=== PATIENT | female | born 1995 | race African-American/Black ===

== ENCOUNTER 2016-06-03 11:16 | Emergency (ER) | payer MEDICAID ==
--- NOTE | 2016-06-03 11:21 | ER Document Report ---
ED Medical Screen (RME) - General Stated Complaint: VAGINAL BLEEDING Mode of Arrival: Ambulatory Information source: Patient Notes: pt presents c/o vag bleeding today, pt reports that she is currently 5 wks preg. Pt and has not had US to confirm . TRAVEL OUTSIDE OF THE [place] IN LAST 30 DAYS: No - Related Data Allergies/Adverse Reactions: No Known Allergies Allergy (Verified 07/02/13 09:51) Past Medical History Pulmonary Medical History: Reports: Hx Asthma Skin Medical History: Reports Hx Cellulitis - Immunizations Immunizations up to date: Yes Hx Diphtheria, Pertussis, Tetanus Vaccination: Yes Physical Exam - General General appearance: Appears well, Alert In distress: None
--- NOTE | 2016-06-03 12:04 | ER Document Report ---
ED GI/ - General Chief Complaint: Vag Bleeding, +preg <12wks Stated Complaint: VAGINAL BLEEDING Time seen by provider: 12:00 Mode of Arrival: Ambulatory Information source: Patient Notes: 20-year-old female presents to ED for complain of vaginal bleeding starting this morning. She states she is currently 5 weeks she's had a urine test but no blood work no ultrasound. She is 1 para 0. She states that she has not soaked more than 1 pad. TRAVEL OUTSIDE OF THE [place] IN LAST 30 DAYS: No - HPI Patient complains to provider of: Abdominal pain - Right upper quadrant abdominal pain, , Vaginal bleeding. No: Vomiting Onset: This morning Timing/Duration: Gradual Quality of pain: Sharp Severity at maximum: Mild Severity in ED: Mild Pain Level: 2 Location: RUQ Vaginal bleeding (Compared to normal period): Similar Associated symptoms: denies: Nausea, Vomiting Exacerbated by: Denies Relieved by: Denies Similar symptoms previously: No Recently seen / treated by doctor: No - Related Data Allergies/Adverse Reactions: No Known Allergies Allergy (Verified 06/03/16 11:22) Past Medical History - General Information source: Patient - Social History Smoking Status: Former Smoker Chew tobacco use (# tins/day): No Frequency of alcohol use: None Drug Abuse: None Occupation: none Lives with: Parents Family History: Arthritis, CAD, CVA, DM, Hypertension Patient has suicidal ideation: No Patient has homicidal ideation: No - Past Medical History Cardiac Medical History: Reports: None Pulmonary Medical History: Reports: Hx Asthma EENT Medical History: Reports: None Neurological Medical History: Reports: None Endocrine Medical History: Reports: None Renal/ Medical History: Reports: None Malignancy Medical History: Reports: None GI Medical History: Reports: None Musculoskeltal Medical History: Reports None Skin Medical History: Reports Hx Cellulitis Psychiatric Medical History: Reports: None Traumatic Medical History: Reports: None Infectious Medical History: Reports: None Surgical Hx: Negative Past Surgical History: Reports: None - Immunizations Immunizations up to date: Yes Hx Diphtheria, Pertussis, Tetanus Vaccination: Yes Review of Systems - Review of Systems Constitutional: No symptoms reported EENT: No symptoms reported Cardiovascular: No symptoms reported Respiratory: No symptoms reported Gastrointestinal: Abdominal pain. denies: Diarrhea, Nausea, Vomiting Genitourinary: No symptoms reported Female Genitourinary: , Vaginal bleeding Musculoskeletal: No symptoms reported Skin: No symptoms reported Hematologic/Lymphatic: No symptoms reported Neurological/Psychological: No symptoms reported -: Yes All other systems reviewed and negative Physical Exam - Vital signs Vitals: Temp Pulse Resp BP Pulse Ox 97.7 F 67 16 110/51 L 99 06/03/16 11:21 06/03/16 11:21 06/03/16 11:21 06/03/16 11:21 06/03/16 11:21 Interpretation: Normal - General General appearance: Appears well, Alert - HEENT Head: Normocephalic, Atraumatic Eyes: Normal Pupils: PERRL - Respiratory Respiratory status: No respiratory distress Chest status: Nontender Breath sounds: Normal Chest palpation: Normal - Cardiovascular Rhythm: Regular Heart sounds: Normal auscultation Murmur: No - Abdominal Inspection: Normal Distension: No distension Bowel sounds: Normal Tenderness: Almaguer's sign. No: Guarding, Rebound Organomegaly: No organomegaly - Back Back: Normal, Nontender - Extremities General upper extremity: Normal inspection, Nontender, Normal color, Normal ROM , Normal temperature General lower extremity: Normal inspection, Nontender, Normal color, Normal ROM , Normal temperature, Normal weight bearing. No: Estefania's sign - Neurological Neuro grossly intact: Yes Cognition: Normal Orientation: AAOx4 Kaiser Coma Scale Eye Opening: Spontaneous [place] Coma Scale Verbal: Oriented Kaiser Coma Scale Motor: Obeys Commands Kaiser Coma Scale Total: 15 Speech: Normal Motor strength normal: LUE, RUE, LLE, RLE Sensory: Normal - Psychological Associated symptoms: Normal affect, Normal mood - Skin Skin Temperature: Warm Skin Moisture: Dry Skin Color: Normal Course - Re-evaluation Re-evalutation: 06/03/16 13:55 Discussed labs and ultrasound with patient and written reports given to patient. Ultrasound shows a very early with a positive yolk sac gestational sac but no pole. We will recheck hCG in 48 hours. We'll discharge home to follow-up with STACK SUPERVISOR - Vital Signs Vital signs: Temp Pulse Resp BP Pulse Ox 98.2 F 80 14 116/64 100 06/03/16 14:06 06/03/16 14:06 06/03/16 14:06 06/03/16 14:06 06/03/16 14:06 - Laboratory Result Diagrams: 06/03/16 12:23 06/03/16 12:23 Laboratory results interpreted by me: 06/03/16 06/03/16 12:18 12:23 BUN 6 L AST 12 L Beta HCG, Quant 9963.70 H Urine Blood LARGE H Ur Leukocyte Esterase TRACE H - Diagnostic Test Radiology reviewed: Image reviewed, Reports reviewed Discharge - Discharge Clinical Impression: Bleeding in early , Upper abdominal pain Condition: Stable Disposition: HOME, SELF-CARE Instructions: Evaluation of Upper Abdominal Pain ([facility]) Additional Instructions: : You are . care is best started as early in as possible. If you're unsure about continuing this , you should discuss this with your physician or with fpga engineer at [facility]. You should take only medications approved by your physician. Acetaminophen can safely be taken for minor pains. As a rule, medication for chronic conditions such as asthma or seizures can safely be continued. You should discuss with the physician every medicine you take. Any regular exercise program can be continued. Talk to your physician, however, before engaging in competitive or demanding sports. Alcohol, smoking, and "street drugs" are dangerous to your baby. Cocaine is especially dangerous. Don't use any illicit drugs! BLEEDING DURING EARLY : You have been evaluated for passing blood while . While we take this symptom very seriously, most women with your degree of bleeding will go on to have a perfectly normal baby. At this time, there is no indication that a miscarriage will occur. (A miscarriage occurs when the fetus is abnormal. There is no medicine or treatment to prevent it.) A more serious cause of bleeding is tubal (or ectopic) . An ultrasound usually can show whether the is in the uterus or in the tube. Sometimes in early , no fetus is seen. In this case, careful follow-up, including repeat blood tests and repeat ultrasound, is necessary. Do not douche or have sex for at least a week, or until OK'd by the doctor. Don't use tampons. Call the doctor or return for re-examination if there is an increase in bleeding or cramping, extreme weakness, fainting, new abdominal pain, fever, or passage of tissue. REPEAT BLOOD TEST: At this time, it is uncertain if you have a viable . During the first three months of , the hormone produced from the placenta will steadily rise, usually doubling in value every 2 - 3 days. In order to determine if your is viable and likely be succesful, a repeat of this blood test for the hormone is recommended in 2 - 3 days. An order for this test to be done as an outpatient is being provided. After you have this repeat test done, call your doctor or call us for the results. If the value of the test is increasing as would be expected in a normal , then your is likely to be ok. However, if the value of the test is declining, it will suggest something has happened with your and it will not likely be a successful . FOLLOW-UP CARE: If you have been referred to a physician for follow-up care, call the physician s office for an appointment as you were instructed or within the next two days. If you experience worsening or a significant change in your symptoms (very heavy bleeding with large clots of blood, passage of tissue, more severe abdominal / pelvic pain or cramping, feeling faint or severe weakness, fever, etc.), notify the physician immediately or return to the Emergency Department at any time for re-evaluation. OBSTETRIC-GYNECOLOGIC (OB-LOG [facility]) PHYSICIANS IN [place]: [facility] [address], [place] [phone] [facility] [address] [place] [address] [phone] For active duty and dependents diagnosed with a threatened or miscarriage, you should follow up in the following manner: Standard patients who have a local civilian provider should follow up with that provider. Patients of the Family Practice Clinic should call your Team Nurse at 8: 00 am the following morning for further instructions. If you are neither a Standard patient nor a patient of the Family Practice Clinic, you should follow up at the [facility] ([facility]) . Patients already enrolled in the [facility], Prime patients not assigned to the Family Practice Clinic, and Active Duty patients not assigned to Family Practice Clinic should report to the [facility] at 8:00 am the next morning that the [facility] is open and then you will be seen in the OB Clinic at 11:00 am. Forms: Follow-Up Laboratory Testing
[2016-06-03 12:40] LABS: APPEARANCE,URINE CLEAR; BILIRUBIN,URINE NEGATIVE (NEGATIVE); GLUCOSE, URINE NEGATIVE (NEGATIVE); KETONES,URINE NEGATIVE (NEGATIVE); LEUKOCYTE ESTERASE,URINE TRACE (NEGATIVE); NITRITE,URINE NEGATIVE (NEGATIVE); PROTEIN,URINE NEGATIVE (NEGATIVE); URINE SPECIFIC GRAVITY 1.011; UROBILINOGEN,URINE NEGATIVE mg/dL (<2.0)
[2016-06-03 12:43] LABS: ABSOLUTE EOSINOPHILS # (AUTO) 0.3 10^3/uL (0.0-0.6); ABSOLUTE LYMPHOCYTES (AUTO) 3.1 10^3/uL (0.5-4.7); ABSOLUTE MONOCYTES (AUTO) 0.5 10^3/uL (0.1-1.4); ABSOLUTE NEUT (AUTO) 3.4 10^3/uL (1.7-8.2); BASOPHILS % (AUTO) 0.4 % (0-2); EOSINOPHILS % (AUTO) 4.1 % (0-6); HEMATOCRIT 42.9 % (36.0-47.0); HEMOGLOBIN 14.8 g/dL (12.0-15.5); HGB HCT DIFFERENCE 1.5; LYMPHOCYTES % (AUTO) 42.2 % (13-45); MEAN CORPUSCULAR HEMOGLOBIN 29.6 pg (27.0-33.4); MEAN CORPUSCULAR HGB CONC 34.6 g/dL (32.0-36.0); MEAN CORPUSCULAR VOLUME 86 fl (80-97); MONOCYTES % (AUTO) 6.7 % (3-13); RED BLOOD COUNT 5.01 10^6/uL (3.72-5.28); SEGMENTED NEUTROPHILS % (AUTO) 46.6 % (42-78); WHITE BLOOD COUNT 7.2 10^3/uL (4.0-10.5)
[2016-06-03 12:56] LABS: ALANINE AMINOTRANSFERASE 23 U/L (9-52); ALBUMIN 4.3 g/dL (3.5-5.0); ALKALINE PHOSPHATASE 45 U/L (38-126); ANION GAP 12 (5-19); ASPARTATE AMINO TRANSFERASE 12 U/L (14-36); BILIRUBIN,TOTAL 0.4 mg/dL (0.2-1.3); BLOOD UREA NITROGEN 6 mg/dL (7-20); CALCIUM 9.8 mg/dL (8.4-10.2); CARBON DIOXIDE 22 mmol/L (22-30); CHLORIDE 105 mmol/L (98-107); CREATININE RESULT 0.79 mg/dL (0.52-1.25); GLUCOSE 90 mg/dL (75-110); LIPASE 50.1 U/L (23-300); SODIUM 138.6 mmol/L (137-145); TOTAL PROTEIN 6.9 g/dL (6.3-8.2)
[2016-06-03 14:06] VITALS: BP 116/64
== END 2016-06-03 14:11 | disposition home or self-care (01) ==
LOC: ER 11:16
DX: O20.9 Hemorrhage in early pregnancy, unspecified (principal); R10.10 Upper abdominal pain, unspecified; Z3A.01 Less than 8 weeks gestation of pregnancy; Z87.891 Personal history of nicotine dependence
CPT/HCPCS: 36415; 76705; 76817; 80053; 81001; 83690; 84702; 85025; 86900; 86901; 93976; 99284

== ENCOUNTER → 2016-06-05 | Outpatient (CLI) | payer MEDICAID | LOC: LAB 12:03 | PROVIDERS: ATTEND Nurse Practitioner Family | DX: O20.9 Hemorrhage in early pregnancy, unspecified (principal) | CPT/HCPCS: 36415; 84702 ==

== ENCOUNTER 2016-06-23 11:59 | Emergency (ER) | payer MEDICAID ==
--- NOTE | 2016-06-23 12:21 | ER Document Report ---
ED Medical Screen (RME) - General Stated Complaint: ABDOMINAL PAIN, BACK PAIN Time seen by provider: 12:19 Mode of Arrival: Ambulatory Information source: Patient Notes: 20-year-old female presents to ED for right pelvic pain and left flank pain for about a week now. Denies nausea or vomiting. This any vaginal discharge or bleeding at this time states she was in here 2 weeks ago for vaginal bleeding. I have greeted and performed a rapid initial assessment of this patient. A comprehensive ED assessment and evaluation of the patient, analysis of test results and completion of medical decision making process will be conducted by an additional ED providers. TRAVEL OUTSIDE OF THE [place] IN LAST 30 DAYS: No - Related Data Allergies/Adverse Reactions: No Known Allergies Allergy (Verified 06/03/16 11:22) Past Medical History Pulmonary Medical History: Reports: Hx Asthma Skin Medical History: Reports Hx Cellulitis - Immunizations Immunizations up to date: Yes Hx Diphtheria, Pertussis, Tetanus Vaccination: Yes
[2016-06-23 12:22] VITALS: BP 125/55
[2016-06-23 12:59] LABS: ABSOLUTE EOSINOPHILS # (AUTO) 0.1 10^3/uL (0.0-0.6); ABSOLUTE LYMPHOCYTES (AUTO) 2.7 10^3/uL (0.5-4.7); ABSOLUTE MONOCYTES (AUTO) 0.4 10^3/uL (0.1-1.4); ABSOLUTE NEUT (AUTO) 4.6 10^3/uL (1.7-8.2); BASOPHILS % (AUTO) 0.3 % (0-2); EOSINOPHILS % (AUTO) 1.3 % (0-6); HEMATOCRIT 41.3 % (36.0-47.0); HEMOGLOBIN 13.8 g/dL (12.0-15.5); HGB HCT DIFFERENCE 0.1; LYMPHOCYTES % (AUTO) 34.9 % (13-45); MEAN CORPUSCULAR HGB CONC 33.4 g/dL (32.0-36.0); MEAN CORPUSCULAR VOLUME 87 fl (80-97); MONOCYTES % (AUTO) 4.7 % (3-13); RED BLOOD COUNT 4.75 10^6/uL (3.72-5.28); RED CELL DISTRIBUTION WIDTH 12.7 % (11.5-14.0); SEGMENTED NEUTROPHILS % (AUTO) 58.8 % (42-78); WHITE BLOOD COUNT 7.8 10^3/uL (4.0-10.5)
[2016-06-23 13:04] LABS: APPEARANCE,URINE SLIGHTLY-CLOUDY; BILIRUBIN,URINE NEGATIVE (NEGATIVE); GLUCOSE, URINE NEGATIVE (NEGATIVE); KETONES,URINE NEGATIVE (NEGATIVE); LEUKOCYTE ESTERASE,URINE SMALL (NEGATIVE); NITRITE,URINE NEGATIVE (NEGATIVE); PROTEIN,URINE NEGATIVE (NEGATIVE); URINE SPECIFIC GRAVITY 1.018; UROBILINOGEN,URINE NEGATIVE mg/dL (<2.0)
[2016-06-23 13:12] LABS: ALANINE AMINOTRANSFERASE 15 U/L (9-52); ALKALINE PHOSPHATASE 39 U/L (38-126); ANION GAP 12 (5-19); ASPARTATE AMINO TRANSFERASE 11 U/L (14-36); BILIRUBIN,TOTAL 0.4 mg/dL (0.2-1.3); BLOOD UREA NITROGEN 6 mg/dL (7-20); CALCIUM 9.7 mg/dL (8.4-10.2); CARBON DIOXIDE 24 mmol/L (22-30); CHLORIDE 105 mmol/L (98-107); CREATININE RESULT 0.74 mg/dL (0.52-1.25); GLUCOSE 119 mg/dL (75-110); POTASSIUM 3.9 mmol/L (3.6-5.0); SODIUM 141.3 mmol/L (137-145); TOTAL PROTEIN 6.5 g/dL (6.3-8.2)
[2016-06-23 14:30] LABS: CHLAM PCR NOT DETECTED (NOT DETECT)
--- NOTE | 2016-06-23 17:37 | ER Document Report ---
ED GI/ - General Chief Complaint: Pelvic Pain Stated Complaint: ABDOMINAL PAIN, BACK PAIN Time seen by provider: 12:30 Mode of Arrival: Ambulatory Information source: Patient Notes: 20 yo female 8 week female has left flank and pelvic pain intermittantly for 1 week. No vaginal bleeding. Was seen 2 weeks ago with spotting, unsure about madi US results, remembers that she was not far enough along for anything to be seen. Upon review of the US it showed gest. sac and yolk sac. She did have doubled serum HCG 2 days after ER visit and no bleeding since. No vaginal d/c or dysuria. TRAVEL OUTSIDE OF THE [place] IN LAST 30 DAYS: No - Related Data Allergies/Adverse Reactions: No Known Allergies Allergy (Verified 06/23/16 12:20) Past Medical History - General Information source: Patient - Social History Smoking Status: Former Smoker Chew tobacco use (# tins/day): No Frequency of alcohol use: None Drug Abuse: None Lives with: Family Family History: Arthritis, CAD, CVA, DM, Hypertension Patient has suicidal ideation: No Patient has homicidal ideation: No Pulmonary Medical History: Reports: Hx Asthma Renal/ Medical History: Denies: Hx Peritoneal Dialysis Skin Medical History: Reports Hx Cellulitis Surgical Hx: Negative - Immunizations Immunizations up to date: Yes Hx Diphtheria, Pertussis, Tetanus Vaccination: Yes Review of Systems - Review of Systems Constitutional: No symptoms reported EENT: No symptoms reported Cardiovascular: No symptoms reported Respiratory: No symptoms reported Gastrointestinal: No symptoms reported Genitourinary: No symptoms reported Female Genitourinary: See HPI Musculoskeletal: No symptoms reported Skin: No symptoms reported Hematologic/Lymphatic: No symptoms reported Neurological/Psychological: No symptoms reported Physical Exam - Vital signs Vitals: Temp Pulse Resp BP Pulse Ox 98.1 F 78 18 125/55 L 98 06/23/16 12:16 06/23/16 12:16 06/23/16 12:16 06/23/16 12:16 06/23/16 12:16 Interpretation: Normal - General General appearance: Appears well, Alert In distress: None - HEENT Head: Normocephalic, Atraumatic Eyes: Normal Pupils: PERRL Neck: Supple - Respiratory Respiratory status: No respiratory distress Chest status: Nontender Breath sounds: Normal Chest palpation: Normal - Cardiovascular Rhythm: Regular Heart sounds: Normal auscultation Murmur: No - Abdominal Inspection: Normal Distension: No distension Bowel sounds: Normal Tenderness: Nontender. No: Tender Organomegaly: No organomegaly - Back Back: Normal, Nontender. No: Tender, CVA tenderness - Extremities General upper extremity: Normal inspection, Nontender, Normal color, Normal ROM , Normal temperature General lower extremity: Normal inspection, Nontender, Normal color, Normal ROM , Normal temperature, Normal weight bearing. No: Estefania's sign - Neurological Neuro grossly intact: Yes Cognition: Normal Orientation: AAOx4 Kaiser Coma Scale Eye Opening: Spontaneous [place] Coma Scale Verbal: Oriented [place] Coma Scale Motor: Obeys Commands Kaiser Coma Scale Total: 15 Speech: Normal Motor strength normal: LUE, RUE, LLE, RLE Sensory: Normal - Psychological Associated symptoms: Normal affect, Normal mood - Skin Skin Temperature: Warm Skin Moisture: Dry Skin Color: Normal Skin irregularity: negative: Rash Course - Re-evaluation Re-evalutation: 06/23/16 17:36 I have consulted with the supervisory physician per [facility] Guidelines. The ultrasound shows a viable 8 week 2 day IUP. The urine is negative. The quantitative is 141,000. Patient does not have any pain today. Or vaginal bleeding. - Vital Signs Vital signs: Temp Pulse Resp BP Pulse Ox 98.1 F 78 18 125/55 L 98 06/23/16 12:16 06/23/16 12:16 06/23/16 12:16 06/23/16 12:16 06/23/16 12:16 - Laboratory Result Diagrams: 06/23/16 12:41 06/23/16 12:41 Laboratory results interpreted by me: 06/23/16 06/23/16 06/23/16 12:41 12:41 12:41 BUN 6 L Glucose 119 H AST 11 L Serum HCG, Qual POSITIVE H Beta HCG, Quant Urine Blood SMALL H Ur Leukocyte Esterase SMALL H 06/23/16 12:41 BUN Glucose AST Serum HCG, Qual Beta HCG, Quant 047459.00 H Urine Blood Ur Leukocyte Esterase Discharge - Discharge Clinical Impression: viable IUP 8 weeks 2 days Abdominal pain Qualifiers: Abdominal location: unspecified location Qualified Code(s): R10.9 - Unspecified abdominal pain Condition: Good Disposition: HOME, SELF-CARE Instructions: ([facility]), Abdominal Pain ([facility]), Ob-Commercial Attache Doctors Additional Instructions: see obgyn doctor daily multivitamin to er any pain or bleeding Forms: Return to Work
== END 2016-06-23 17:49 | disposition home or self-care (01) ==
LOC: ER 11:59
DX: O26.91 Pregnancy related conditions, unspecified, first trimester (principal); R10.2 Pelvic and perineal pain; M54.9 Dorsalgia, unspecified; Z3A.08 8 weeks gestation of pregnancy
CPT/HCPCS: 36415; 76817; 80053; 81001; 83690; 84702; 84703; 85025; 87491; 87591; 99284

== ENCOUNTER 2016-12-21 12:47 | Outpatient (CLI) | payer MEDICAID ==
[2016-12-21 13:37] LABS: APPEARANCE,URINE SLIGHTLY-CLOUDY; BILIRUBIN,URINE NEGATIVE (NEGATIVE); CALCIUM OXALATE CRYSTALS,URINE FEW /HPF; GLUCOSE, URINE NEGATIVE (NEGATIVE); KETONES,URINE NEGATIVE (NEGATIVE); LEUKOCYTE ESTERASE,URINE NEGATIVE (NEGATIVE); NITRITE,URINE NEGATIVE (NEGATIVE); PROTEIN,URINE NEGATIVE (NEGATIVE); URINE SPECIFIC GRAVITY 1.014; UROBILINOGEN,URINE NEGATIVE mg/dL (<2.0)
[2016-12-21 13:48] LABS: URINE BARBITURATES SCREEN NEGATIVE; URINE METHADONE SCREEN NEGATIVE; URINE OPIATES LOW NEGATIVE; URINE PHENCYCLIDINE SCREEN NEGATIVE
--- NOTE | 2016-12-21 13:55 | Non Stress Test Report ---
Non Stress Test Datetime Report Generated by CPN: 12/21/2016 13:55 DEMOGRAPHIC EGA NST: 34.2 INDICATION Indication for Study: Decreased Movement MONITORING Monitor Explained: Monitor Explained; Test Explained; Patient Verbalized Understanding Time on Monitor: 12/21/2016 13:08 Time off Monitor: 12/21/2016 13:51 NST Duration: 43 NST INTERVENTIONS NST Interventions: PO Hydration; Reposition Patient Physician Notified NST: J Donnelly CNM BABY A: [id number] BABY A Movement : Present Contraction Frequency : none FHR Baseline : 125 Accelerations : 15X15 Decelerations : None Variability : Moderate 6-25bpm NST Review: Meets Criteria for Reactive NST NST Review and Verified By : SUDHIR Harmon Results: Reactive NST REPORT Report Trigger: Send Report
== END 2016-12-21 13:57 | disposition home or self-care (01) ==
LOC: LC 12:47
PROVIDERS: ATTEND Obstetrics & Gynecology
PROC: 4A1HXCZ Monitoring of Products of Conception, Cardiac Rate, External Approach (ICD-10-PCS; principal; 2016-12-21)
DX: O36.8130 Decreased fetal movements, third trimester, not applicable or unspecified (principal); Z3A.34 34 weeks gestation of pregnancy
CPT/HCPCS: 59025; 80307; 81001

== ENCOUNTER 2017-01-08 02:16 | Inpatient (IN) | payer MEDICAID ==
[2017-01-08 02:42] LABS: APPEARANCE,URINE CLEAR; BILIRUBIN,URINE NEGATIVE (NEGATIVE); GLUCOSE, URINE NEGATIVE (NEGATIVE); KETONES,URINE NEGATIVE (NEGATIVE); LEUKOCYTE ESTERASE,URINE TRACE (NEGATIVE); NITRITE,URINE NEGATIVE (NEGATIVE); PROTEIN,URINE NEGATIVE (NEGATIVE); URINE SPECIFIC GRAVITY 1.004; UROBILINOGEN,URINE NEGATIVE mg/dL (<2.0)
[2017-01-08 02:59] LABS: URINE BARBITURATES SCREEN NEGATIVE; URINE METHADONE SCREEN NEGATIVE; URINE OPIATES LOW NEGATIVE; URINE PHENCYCLIDINE SCREEN NEGATIVE
[2017-01-08] MEDS ORDERED: RINGERS SOLUTION,LACTATED 1,000 ML IV ONE (04:13)
[2017-01-08] MEDS ORDERED: ONDANSETRON HCL INJ/PF 4 MG/2 ML SDV IV ONE (04:15)
[2017-01-08] MEDS ORDERED: PENICILLIN G-K 5 MILLION UNIT VIAL ONE ×2 (04:17→08:53)
[2017-01-08] MEDS ORDERED: ONDANSETRON HCL INJ/PF 4 MG/2 ML SDV ONE (04:18)
[2017-01-08] MEDS ORDERED: PENICILLIN G POTASSIUM 5,000,000 UNIT in DEXTROSE 5%-WATER 100 ML IV ONE (04:30)
[2017-01-08 04:51] LABS: ABSOLUTE EOSINOPHILS # (AUTO) 0.1 10^3/uL (0.0-0.6); ABSOLUTE LYMPHOCYTES (AUTO) 2.9 10^3/uL (0.5-4.7); ABSOLUTE MONOCYTES (AUTO) 0.9 10^3/uL (0.1-1.4); ABSOLUTE NEUT (AUTO) 7.3 10^3/uL (1.7-8.2); BASOPHILS % (AUTO) 0.3 % (0-2); EOSINOPHILS % (AUTO) 0.7 % (0-6); HEMATOCRIT 38.8 % (36.0-47.0); HEMOGLOBIN 13.1 g/dL (12.0-15.5); HGB HCT DIFFERENCE 0.5; LYMPHOCYTES % (AUTO) 25.6 % (13-45); MEAN CORPUSCULAR HEMOGLOBIN 28.3 pg (27.0-33.4); MEAN CORPUSCULAR HGB CONC 33.7 g/dL (32.0-36.0); MEAN CORPUSCULAR VOLUME 84 fl (80-97); MONOCYTES % (AUTO) 7.7 % (3-13); RED BLOOD COUNT 4.62 10^6/uL (3.72-5.28); RED CELL DISTRIBUTION WIDTH 13.6 % (11.5-14.0); SEGMENTED NEUTROPHILS % (AUTO) 65.7 % (42-78); WHITE BLOOD COUNT 11.2 10^3/uL (4.0-10.5)
[2017-01-08] MEDS: RINGERS SOLUTION,LACTATED 1,000 ML IV PRN ×3 (04:53→07:00)
[2017-01-08] MEDS ORDERED: FENTANYL/BUPIVACAINE/NS/PF 100 ML EPI PRN (05:56)
[2017-01-08] MEDS ORDERED: BENZOIN/ALOE VERA/STORAX/TOLU TINCTURE 60 ML TP PRN (05:56)
[2017-01-08] MEDS ORDERED: BUPIVACAINE HCL 0.25 % INJ/PF (2.5 MG/1 ML) 30 ML VIAL INFIL ONE (05:56)
[2017-01-08] MEDS ORDERED: BUPIVACAINE HCL 0.25 % INJ/PF (2.5 MG/1 ML) 30 ML VIAL ONE ×2 (05:58→06:31)
[2017-01-08] MEDS ORDERED: FENTANYL/BUPIVACAINE/NS/PF 200 MCG/100 ML RTUINJ EPI ONE (05:58)
[2017-01-08] MEDS ORDERED: EPHEDRINE SULFATE INJ 50 MG/1 ML AMPULE ONE (05:58)
[2017-01-08] MEDS ORDERED: OXYTOCIN/NORMAL SALINE 20 UNIT/1,000 ML RTUINJ ONE (07:22)
[2017-01-08] MEDS ORDERED: MISOPROSTOL 0.2 MG TABLET ONE (07:22)
[2017-01-08] MEDS ORDERED: LIDOCAINE 1% INJ-PF (10 MG/ML) 30 ML SDV ONE (07:22)
[2017-01-08] MEDS ORDERED: PENICILLIN G POTASSIUM 2,500,000 UNIT in DEXTROSE 5%-WATER 50 ML IV SCH (08:30)
[2017-01-08] MEDS: PENICILLIN G-K 5 MILLION UNIT VIAL IV SCH ×2 (08:59→15:15)
--- NOTE | 2017-01-08 10:07 | L&D Progress Notes ---
PROGRESS NOTES Datetime Report Generated by CPN: 01/08/2017 10:07 PROGRESS NOTE Impression: Normal Progression of Labor Plan: Continue Present Management Vital Signs : Reviewed; Within Normal Limits Comment: Pt sitting up in bed, comfortable with epidural, irreg uc's, ant lip, continue to monitor and start pushing when complete, 36.6 weeks early deceleration, moderate variability VAGINAL EXAM Dilatation: 4 Effacement: 80 Station: -2 MEMBRANES Membranes: Intact FETUS A FHR - Baseline: 125 Variability: Moderate 6-25bpm Decelerations: Early; Variable : 36.6 Presentation: Vertex SIGNATURE SIGNATURE: [id number] SIGNATURE: [id number] Assignment: Enid Whitney MD Signature: with User ID: [email or web address] : with User ID: [email or web address]
[2017-01-08] MEDS ORDERED: OXYTOCIN/NORMAL SALINE 1,000 ML IV PRN ×2 (10:36→13:05)
--- NOTE | 2017-01-08 11:23 | L&D Progress Notes ---
PROGRESS NOTES Datetime Report Generated by CPN: 01/08/2017 11:23 PROGRESS NOTE Vital Signs : Reviewed; Within Normal Limits Comment: Dr. Whitney on unit, reviewed strip, teresa lplace on peanut ball and turn pt, continue Pitocin and monitor closely FETUS A Monitoring: External US Decelerations: Early; Variable FETUS C SIGNATURE: [id number] Assignment: Enid Whitney MD Signature: with User ID: [email or web address] : with User ID: [email or web address]
[2017-01-08] MEDS ORDERED: DIBUCAINE 1% OINTMENT 28 GM TP PRN (13:05)
[2017-01-08] MEDS ORDERED: MISOPROSTOL 0.2 MG TABLET PR ONE (13:05)
[2017-01-08] MEDS ORDERED: PROMETHAZINE HCL INJ 25 MG/1 ML VIAL IV PRN (13:05)
[2017-01-08] MEDS ORDERED: DIPHENHYDRAMINE HCL 25 MG CAPSULE PO PRN (13:05)
[2017-01-08] MEDS ORDERED: MEASLES,MUMPS&RUBELLA VACC/PF 0.5 ML VIAL SUBCUT PRN (13:05)
[2017-01-08] MEDS ORDERED: PSEUDOEPHEDRINE HCL 30 MG TABLET PO PRN (13:05)
[2017-01-08] MEDS ORDERED: ACETAMINOPHEN WITH CODEINE #3 TABLET PO PRN ×2 (13:05)
[2017-01-08] MEDS ORDERED: MAGNESIUM HYDROXIDE SUSP 30 ML UDCUP PO PRN (13:05)
[2017-01-08] MEDS ORDERED: DIPH/PERTUSS(ACELL)/TETANUS VAC/PF 0.5 ML SYR (>=10YO) IM PRN (13:05)
[2017-01-08] MEDS ORDERED: NA PHOS,M-B/NA PHOS,DI-BA (ADULT) 133 ML ENEMA PR PRN (13:05)
[2017-01-08] MEDS ORDERED: ACETAMINOPHEN 650 MG SUPP.RECT PR PRN (13:05)
[2017-01-08] MEDS ORDERED: GLYCERIN/WITCH HAZEL LEAF 1 EACH MED..PAD TP PRN (13:05)
[2017-01-08] MEDS ORDERED: PROMETHAZINE HCL 25 MG TABLET PO PRN (13:05)
[2017-01-08] MEDS ORDERED: BENZOCAINE/MENTHOL AEROSOL SPRAY 56 ML TOP PRN (13:05)
[2017-01-08] MEDS ORDERED: PROMETHAZINE HCL 25 MG SUPP.RECT PR PRN (13:05)
[2017-01-08 13:24] LABS: ARTERIAL BLOOD BASE EXCESS -0.9 mmol/L; ARTERIAL BLOOD O2 SATURATION 59.5 % (94-98)
--- NOTE | 2017-01-08 15:05 | Admission Physical ---
Datetime Report Generated by CPN: 01/08/2017 15:05 CURRENT ADMISSION Chief Complaint: Uterine Contractions Indication for Induction: Not Applicable Admit Plan: Admit to Unit; Initiate Labor Protocol ALLERGIES Medication Allergies: No Medication Allergies: No Known Allergies (12/21/2016) Medication Allergies: No Known Allergies (06/23/2016) Latex: No Latex Allergies Food Allergies: N/A Environmental Allergies: N/A OBSTETRICAL HISTORY EDC: 01/30/2017 00:00 : 1 Para: 0 Term: 0 : 0 SAB: 0 IAB: 0 Ectopic: 0 Livin Cesareans: 0 VBACs: 0 Multiple Births: 0 Gestational Diabetes: Yes Rh Sensitization: No Incompetent Cervix: No CAROLINE: No Infertility: No ART Treatment: No Uterine Anomaly: No IUGR: No Hx Previous C/S: No Macrosomia: No Hx Loss/Stillborn: No PIH: No Hx : No Placenta Previa/Abruption: No Depression/PP Depression: No PTL/PROM: Yes Post Hemorrhage: No Current Procedures: Ultrasound; NST Obstetrical History Comments: G1 - current , GDMA2 on glyburide, labor at 36+6 weeks SEE RECORDS Alcohol: No Marijuana : No Cocaine: No Other Illicit Drugs: No Cigarettes: Former Smoker. [id number] MEDICAL HISTORY Diabetes: Yes Diabetes Type: Gestational Diabetes Blood Transfusion: No Pulmonary Disease (Asthma, TB): Yes Breast Disease: No Hypertension: No Veneer Sawyer Surgery: No Heart Disease: No Hosp/Surgery: No Autoimmune Disorder: No Anesthetic Complications: No Kidney Disease: No Abnormal Pap Smear: No Neuro/Epilepsy: No Psychiatric Disorders: No Other Medical Diseases: No Hepatitis/Liver Disease: No Significant Family History: No Varicosities/Phlebitis: No Trauma/Violence : No Thyroid Dysfunction: No Medical History Comments: Asthma INFECTIOUS HISTORY Gonorrhea: No Genital Herpes: No Chlamydia: No Tuberculosis: No Syphilis: No Hepatitis: No HIV/AIDS Exposure: No Rash or Viral Illness: No HPV: No Infectious History Comments: Trich 07/04/16 PHYSICAL EXAM General: Normal HEENT: Normal Neurologic: Normal Thyroid: Deferred Heart: Normal Lungs: Normal Breast: Deferred Back: Normal Abdomen: Normal Genitourinary Exam: Normal Extremities: Normal DTRs: Normal Pelvic Type: Adequate Vital Signs: Reviewed; Within Normal Limits VAGINAL EXAM Dilatation: 4 Effacement: 80 Station: -2 MEMBRANES Membranes: Intact FETUS A EGA: 36.6 Monitoring: External US FHR- Baseline: 150 Variability: Moderate 6-25bpm Accelerations: 15X15 Decelerations: None FHR Category: Category I Presentation: Vertex Admit Comment: PCN for + GBS PLANS FOR LABOR AND DELIVERY Labor and Delivery: None Pain Management: Epidural Feeding Preference: Formula Benefit of Breast Feed Discussed: Yes Circumcision: N/A INFORMED CONSENT Signature: with User ID: [email or web address]
[2017-01-08] MEDS: IBUPROFEN 800 MG TABLET PO SCH ×2 (15:30→21:48)
[2017-01-08] MEDS: FERROUS SULFATE 325 MG TABLET PO SCH (18:02)
[2017-01-08] MEDS: DOCUSATE SODIUM 100 MG CAPSULE PO SCH (18:02)
[2017-01-08] MEDS: FAMOTIDINE 20 MG TABLET PO SCH (21:47)
[2017-01-09] MEDS: IBUPROFEN 800 MG TABLET PO SCH ×3 (06:00→21:36)
[2017-01-09 07:31] LABS: RED BLOOD COUNT 3.76 10^6/uL (3.72-5.28)
[2017-01-09 07:49] LABS: HEMATOCRIT 32.3 % (36.0-47.0); HGB HCT DIFFERENCE 0.1; MEAN CORPUSCULAR HEMOGLOBIN 28.6 pg (27.0-33.4); MEAN CORPUSCULAR HGB CONC 33.4 g/dL (32.0-36.0); MEAN CORPUSCULAR VOLUME 86 fl (80-97); RED CELL DISTRIBUTION WIDTH 13.9 % (11.5-14.0); WHITE BLOOD COUNT 10.6 10^3/uL (4.0-10.5)
[2017-01-09 08:03] LABS: HEMOGLOBIN 10.8 g/dL (12.0-15.5)
[2017-01-09] MEDS: DOCUSATE SODIUM 100 MG CAPSULE PO SCH ×2 (10:08→17:45)
[2017-01-09] MEDS: SENNOSIDES/DOCUSATE 8.6-50 MG 1 EACH TABLET PO SCH (10:08)
[2017-01-09] MEDS: FAMOTIDINE 20 MG TABLET PO SCH ×2 (10:09→21:36)
[2017-01-09] MEDS: FERROUS SULFATE 325 MG TABLET PO SCH ×2 (10:10→17:44)
[2017-01-09] MEDS: PRENATAL VITAMIN W-O CA NO5/FE FUMARATE/FA CAPSULE PO SCH (10:10)
--- NOTE | 2017-01-09 11:39 | PDOC PROGRESS REPORT ---
Subjective-OB Subjective: Post Delivery Day:1 21 year old G1 now P1 s/p ppd1. Pt. ambulating and voiding without difficulty. Denies any needs at this time Physical Exam (OB) Vital Signs: Temp Pulse Resp BP Pulse Ox 98.3 F 73 16 134/72 H 99 01/09/17 08:39 01/09/17 08:39 01/09/17 08:39 01/09/17 08:39 01/09/17 08:39 Intake & Output 01/08/17 01/09/17 01/10/17 06:59 06:59 06:59 Weight 104.1 kg - General General Appearance: Appears well In distress: None - PIH/Pre-Eclampsia DTR's: 2 + Clonus: Negative Headache: Absent Epigastric Pain: No Visual Changes: No - Episiotomy/Laceration Site Condition: N/A - Lochia Lochia Amount: Small 10-25 ml Lochia Color: Rubra/Red - Abdomen Description: Soft, Round Hernia Present: No Fundal Description: Firm, Midline Fundal Height: u/u - u/2 - Respiratory Respiratory Status: No respiratory distress - Extremities Upper extremity: Normal inspection Lower extremities: Normal inspection - Neurological Cognition: Normal Orientation: AAOx4 - Psychological Associated symptoms: Normal affect, Normal mood Objective-Diagnostic Laboratory: 01/09/17 07:05 01/08/17 04:15 01/08/17 01/09/17 12:45 07:05 WBC 10.6 H RBC 3.76 Hgb 10.8 L D Hct 32.3 L MCV 86 MCH 28.6 MCHC 33.4 RDW 13.9 Plt Count 129 L Carbonic Acid 1.34 HCO3/H2CO3 Ratio 18:1 ABG pH 7.36 ABG pCO2 44.4 ABG pO2 32.3 L* ABG HCO3 24.7 ABG O2 Saturation 59.5 L ABG Base Excess -0.9 FiO2 CORD BLOOD Assessment and Plan(PN) - Assessment and Plan (1) Acute blood loss anemia Is this a current diagnosis for this admission?: YesPlan: increase iron in diet, po feso4 supplementation (2) Gestational diabetes mellitus Qualifiers: Gestational diabetes mellitus control: oral hypoglycemic-controlled Trimester: third trimester Qualified Code(s): O24.415 - Gestational diabetes mellitus in , controlled by oral hypoglycemic drugs Is this a current diagnosis for this admission?: YesPlan: reassess at pp visit (3) GBS (group B Streptococcus carrier), +RV culture, currently Is this a current diagnosis for this admission?: YesPlan: continue stay (4) labor in third trimester with delivery Qualifiers: Fetus number: single or unspecified fetus Qualified Code(s): O60.14X0 - labor third trimester with delivery third trimester, not applicable or unspecified Is this a current diagnosis for this admission?: YesPlan: delivered - Time Spent with Patient Time with patient: 15-25 minutes Medications reviewed and adjusted accordingly: Yes - Disposition Anticipated Discharge: Home Within: within 24 hours
[2017-01-10] MEDS: IBUPROFEN 800 MG TABLET PO SCH ×2 (05:33→13:29)
[2017-01-10 09:05] VITALS: BP 120/68
[2017-01-10] MEDS: PRENATAL VITAMIN W-O CA NO5/FE FUMARATE/FA CAPSULE PO SCH (09:13)
[2017-01-10] MEDS: FERROUS SULFATE 325 MG TABLET PO SCH (09:13)
[2017-01-10] MEDS: DOCUSATE SODIUM 100 MG CAPSULE PO SCH (09:13)
[2017-01-10] MEDS: FAMOTIDINE 20 MG TABLET PO SCH (09:13)
[2017-01-10] MEDS: SENNOSIDES/DOCUSATE 8.6-50 MG 1 EACH TABLET PO SCH (09:13)
--- NOTE | 2017-01-10 09:30 | PDOC DISCHARGE SUMMARY ---
Final Diagnosis Discharge Date: 01/10/17 - Final Diagnosis (1) labor in third trimester with delivery Is this a current diagnosis for this admission?: Yes Discharge Data - Discharge Medication Home Medications: Glyburide 2.5 mg PO BID 12/21/16 Pnv with Ca,No.72/Iron/FA [Pnv Plus Multivit Tab] 1 tab PO DAILY Reason(s) for Admission: Onset of Labor, PROM, Labor, Group B Strep Positive Procedures: NST Intrapartum Procedure(s): Spontaneous Vaginal Delivery Complication(s): Other Laceration-Degree: 1st - Diagnosis Test Laboratory: Temp Pulse Resp BP Pulse Ox 98.4 F 70 16 120/68 100 01/10/17 08:39 01/10/17 08:39 01/10/17 08:39 01/10/17 08:39 01/10/17 08:39 01/08/17 01/08/17 01/09/17 02:26 04:15 07:05 RBC 4.62 3.76 Hgb 13.1 10.8 L D Hct 38.8 32.3 L Urine Opiates Screen NEGATIVE - Discharge information/Instructions Discharge Activity: Activity As Tolerated, Pelvic Rest Discharge Diet: Regular Disposition: HOME, SELF-CARE [facility] in: 4, Weeks
--- NOTE | 2017-01-11 13:40 | Delivery Summary ---
Del Sum A-C Datetime Report Generated by CPN: 01/11/2017 13:40 DELIVERY PERSONNEL DELIVERY PERSONNEL: [id number];[id number] DELIVERY PERSONNEL: [id number];[id number] DELIVERY PERSONNEL: [id number] DELIVERY PERSONNEL: [id number] Delivery Doctor:: Pooja Donnelly CNM Labor and Delivery Nurse:: Jessica Barclay RNtalent sourcing specialist Nurse:: Jimena Head RN Nursery Nurse:: Laurel Mike RN Nursery Nurse:: Concetta Walters RN Dethistler Operator/VP DIRECTOR OF CREATIVE STRATEGY: [facility] Dethistler Operator/AVIVA: Leidy Weiss CNA II MATERNAL INFORMATION Delivery Anesthesia: Epidural Medications After Delivery: Pitocin Bolus-Please Comment Meds After Delivery Comment: Pitocin 20 units in 1 L NS bolusing per order Estimated Blood Loss (ml): 400 Provider Comments: AROM, thick meconium by Dr. Whitney after pt. felt like she needed to push, several pushes nd baby was delivered from OA to RALF over intact perineum, right labial superficial laceration. Thick meconium, small baby, cord gas and cord blood to lab. Spont delivery of grossly small placenta, meconium staining. Massage, Pitocin and Cytotec 600 mcg via rectum. Nursery in attendance for delivery and initial stablization. Baby and mom in recovery in stable condition. FFFM (Annotations: Data stored by CPN on behalf of user) LABOR SUMMARY EDC: 01/30/2017 00:00 No. Babies in Womb: 1 Attempted: No Labor Anesthesia: Epidural LABOR INFORMATION Reason for Induction: Not Applicable Onset of Labor: 01/08/2017 00:01 Complete Dilatation: 01/08/2017 12:31 Cervical Ripening Agents: Cytotec @ 600 Oxytocin: Augmentation Group B Beta Strep: positive Antibiotics # of Doses: 2 Antibiotics Time of Last Dose: 854 Name of Antibiotic Given: PCN Steroids Given: None Reason Steroids Not Administered: Not Applicable MEMBRANES Membranes Rupture Method: Spontaneous Rupture of Membranes: 01/08/2017 12:31 Length of Rupture (hr): 0.23 Amniotic Fluid Color: Heavy Meconium Amniotic Fluid Amount: Small Amniotic Fluid Odor: Normal STAGES OF LABOR Stage 1 hr: 12 Stage 1 min: 30 Stage 2 hr: 0 Stage 2 min: 14 Stage 3 hr: 0 Stage 3 min: 4 Total Time in Labor hr: 12 Total Time in Labor min: 48 VAGINAL DELIVERY Episiotomy: None Laceration Extension: N/A Laceration Type: Periurethral Other Laceration: right labial Laceration Repair: No Laceration Repair Note: no repair needed Sponge Count Correct: N/A Sharps Count Correct: Yes CSECTION DELIVERY Primary Indication: N/A Secondary Indication: N/A CSection Incidence: N/A Labor: N/A Elective: N/A CSection Incision: N/A BABY A INFORMATION Infant Delivery Date/Time: 01/08/2017 12:45 Method of Delivery: Vaginal Born in Route : No : N/A Forceps: N/A Vacuum Extraction: N/A Shoulder Dystocia : No PRESENTATION/POSITION BABY A Presentation: Cephalic Cephalic Presentation: Vertex Vertex Position: OA Breech Presentation: N/A PLACENTA INFORMATION BABY A Placenta Delivery Time : 01/08/2017 12:49 Placenta Method of Delivery: Spontaneous Placenta Status: Delivered SCORES BABY A Heart Rate 1 min: >100 bpm Resp Effort 1 min: Good Cry Reflex Irritability 1 min: Cough or Sneeze or Pulls Away Muscle Tone 1 min: Active Motion Color 1 min: Body [place], Extremities Blue Resuscitation Effort 1 min: Tactile Stimulation SCORE 1 MIN: 9 Heart Rate 5 min: >100 bpm Resp Effort 5 min: Good Cry Reflex Irritability 5 min: Cough or Sneeze or Pulls Away Muscle Tone 5 min: Active Motion Color 5 min: Body [place], Extremities Blue Resuscitation Effort 5 min: N/A SCORE 5 MIN: 9 INFANT INFORMATION BABY A Gestational Age at Delivery: 36.6 Gestational Status: Late - 34- 36.6 Weeks Outcome : Liveborn Infant Condition : Stable Infant Sex: Female IDENTIFICATION BABY A Verification Date/Time: 01/08/2017 13:27 ID Band Number: [id number] Mother's Name Verified: Yes Infant RN Verifying Infant: [place] RN. Antonio Barclay RN WEIGHT/LENGTH BABY A Infant Birthweight (gm): 2330 Weight (lb): 5 Infant Weight (oz): 2 Length (in): 18.88 Length (cm): 47.96 CORD INFORMATION BABY A No. Cord Vessels: 3 Nuchal Cord : N/A Cord Blood Taken: Yes-For Storage (Mom's Blood type +) Infant Suction: Mouth; Nose ASSESSMENT BABY A Infant Complications: Multiple Variable Decels Physical Findings- Other: meconium stained Infant Respirations: Appears Normal Skin to Skin: No Skin to Skin: No Skin to Skin Time (min): 0 Station Baggage Porter/ALS Called : No Care By: Antonio Mike RN Transferred To: Remains with Mother BABY B INFORMATION : N/A
== END 2017-01-10 13:37 | disposition home or self-care (01) | DRG 775 ==
LOC: LC 02:16 → LR 04:00 → 2S 15:00
PROVIDERS: ADMIT Obstetrics & Gynecology; ATTEND Obstetrics & Gynecology
PROC: 10E0XZZ Delivery of Products of Conception, External Approach (ICD-10-PCS; principal; 2017-01-08)
PROC: 4A1HXCZ Monitoring of Products of Conception, Cardiac Rate, External Approach (ICD-10-PCS; 2017-01-08)
DX: O42.013 Preterm premature rupture of membranes, onset of labor within 24 hours of rupture, third trimester (principal); D62 Acute posthemorrhagic anemia; O99.02 Anemia complicating childbirth; O99.824 Streptococcus B carrier state complicating childbirth; O77.0 Labor and delivery complicated by meconium in amniotic fluid; O76 Abnormality in fetal heart rate and rhythm complicating labor and delivery; O24.425 Gestational diabetes mellitus in childbirth, controlled by oral hypoglycemic drugs; O71.82 Other specified trauma to perineum and vulva; Z37.0 Single live birth; Z3A.36 36 weeks gestation of pregnancy; Z87.891 Personal history of nicotine dependence
CPT/HCPCS: 36415; 80307; 81001; 82803; 82947; 82962; 85025; 85027; 86592; 86850; 86900; 86901; 88307; J2405; J2540; J2590; J3490

== ENCOUNTER 2017-09-13 13:04 | Emergency (ER) | payer MEDICAID ==
[2017-09-13] MEDS ORDERED: LIDOCAINE 1% INJ-PF (10 MG/ML) 30 ML SDV INJ ONE (14:12)
[2017-09-13] MEDS ORDERED: IBUPROFEN 600 MG TABLET PO ONE (14:12)
--- NOTE | 2017-09-13 14:16 | ER Document Report ---
ED Skin Rash/Insect Bite/Abscs - General Chief Complaint: Abscess Stated Complaint: ABSCESS Time Seen by Provider: 09/13/17 14:06 Mode of Arrival: Ambulatory Information source: Patient TRAVEL OUTSIDE OF THE [place] IN LAST 30 DAYS: No - HPI Patient complains to provider of: Tender/swollen area Notes: Patient is here with complaints of tenderness and swelling to the top of her gluteal cleft. States that she has had this for the last 3 or 4 days but today got much larger and much more painful. She denies any fevers. She denies any nausea, vomiting, diarrhea. No abdominal pain. Pain is worse with touching the area or sitting, nothing seems to make it better. Is a prior history of abscess but is never had an abscess in this area. She denies any history of diabetes, HIV, immunosuppression, cancer. No other rashes. No numbness, tingling, weakness. She denies any other complaints. - Related Data Allergies/Adverse Reactions: No Known Allergies Allergy (Verified 12/21/16 12:58) Past Medical History - Social History Smoking Status: Current Every Day Smoker Chew tobacco use (# tins/day): No Frequency of alcohol use: None Drug Abuse: None Family History: Arthritis, CAD, CVA, DM, Hypertension Patient has suicidal ideation: No Patient has homicidal ideation: No Pulmonary Medical History: Reports: Hx Asthma Endocrine Medical History: Reports: Hx Diabetes Mellitus Type 2 - gestational Renal/ Medical History: Denies: Hx Peritoneal Dialysis Skin Medical History: Reports Hx Cellulitis - Immunizations Immunizations up to date: Yes Hx Diphtheria, Pertussis, Tetanus Vaccination: Yes Review of Systems - Review of Systems -: Yes All other systems reviewed and negative Physical Exam - Vital signs Vitals: Temp Pulse Resp BP Pulse Ox 98.6 F 100 16 135/73 H 100 09/13/17 13:07 09/13/17 13:07 09/13/17 13:07 09/13/17 13:07 09/13/17 13:07 - Notes Notes: GENERAL: alert, cooperative, nontoxic, no distress. HEAD: normocephalic, atraumatic EYES: conjunctiva pink without discharge, no external redness or swelling. EARS: no external swelling, no external redness NOSE: atraumatic, no external swelling MOUTH/THROAT: mucous membranes moist and pink NECK: soft, supple, full range of motion, no meningismus. CHEST: no distress, lungs clear and equal throughout. No wheezing, rales, rhonchi. CARDIAC: regular rate and rhythm, no murmur, normal capillary refill, normal pulses. BACK: full range of motion, no CVA tenderness. EXTREMITIES: full range of motion of all extremities. No redness, no swelling. NEURO: alert and oriented 3, no focal deficits, full range of motion of all extremities. PYSCH: appropriate mood, affect. Patient is cooperative. SKIN: pink, warm, dry, no rash. Patient is noted to have a red swollen tender area to the top of her gluteal cleft consistent with pilonidal abscess. No significant surrounding cellulitis. No drainage. This does not involve the rectum. Course - Re-evaluation Re-evalutation: 09/13/17 15:32 Patient is nontoxic appearing with stable vitals. Patient is here with a pilonidal abscess. She has had abscess in the past but not in this area. Started a few days ago but got much worse today. She is noted to have some mild redness with tenderness and swelling to the superior aspect of her gluteal cleft. Was able to drain the abscess for a moderate amount of purulent material. Patient tolerated this well. Patient will be discharged home with a prescription for Bactrim, [place], warm soaks and hot compresses. Follow-up if not better in the next 2-3 days, follow up sooner for worsening pain, fever, spreading redness, or for any further concerns. The patient is noted to have elevated blood pressure during today's emergency department visit. The patient was informed of this finding. The patient was instructed that this may be related to pre-hypertension and requires further evaluation with a primary care provider. The patient has no hypertensive symptoms at this time. The patient's emergency department workup and current diagnosis were explained to the patient and or family. Follow-up instructions were provided. Medications if prescribed were discussed. Instructions for when to return to the emergency department including specific worrisome symptoms were discussed with the patient and/or family. - Vital Signs Vital signs: Temp Pulse Resp BP Pulse Ox 98.6 F 100 16 135/73 H 100 09/13/17 13:07 09/13/17 13:07 09/13/17 13:09/13/17 13:09/13/17 13:07 Procedures - Incision and Drainage Pilonidal Type: Simple Anesthetic type: 1% Lidocaine Blade size: 11 I&D procedure: Betadine prep applied, Sterile dressing applied Incision Method: Incision made by scalpel Amount/type of drainage: Moderate amount of purulent drainage Notes: 09/13/17 15:33 Loculations were broken up with hemostats. The abscess cavity was irrigated with normal saline. Discharge - Discharge Clinical Impression: Pilonidal abscess Condition: Stable Disposition: HOME, SELF-CARE Instructions: Post Incision and Drainage, Oral Narcotic Medication ([facility]), Trimethoprim-Sulfa ([facility]), Abscess ([facility]) Additional Instructions: Take medications as prescribed. Apply warm compresses to sore area. Follow-up if not better in 2 days, sooner for increasing pain, fever, spreading redness, persistent vomiting, or for any further concerns. Your blood pressure was elevated during today's visit. Have this rechecked with your doctor. Prescriptions: Hydrocodone/Acetaminophen [[place] 5-325 mg Tablet] 2 tab PO Q6H PRN #15 tab PRN Reason: Sulfamethoxazole/Trimethoprim [Bactrim Ds Tablet] 1 each PO BID #20 tablet Forms: Elevated Blood Pressure, Smoking Cessation Education Referrals: [facility] [Provider Group] - Follow up as needed EUGENE ZIMMERMAN MD [[facility]MAN [facility]AR[facility]] - Follow up as needed
[2017-09-13 16:02] VITALS: BP 106/59
== END 2017-09-13 15:57 | disposition home or self-care (01) ==
LOC: ER 13:04
PROC: 0H98XZZ Drainage of Buttock Skin, External Approach (ICD-10-PCS; principal; 2017-09-13)
DX: L05.01 Pilonidal cyst with abscess (principal); F17.200 Nicotine dependence, unspecified, uncomplicated; R03.0 Elevated blood-pressure reading, without diagnosis of hypertension
CPT/HCPCS: 99283; 10080; J3490

== ENCOUNTER 2017-11-12 14:20 | Emergency (ER) | payer OTHER, MEDICAID ==
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
[2017-11-12 15:43] VITALS: BP 107/59
== END 2017-11-12 15:44 | disposition home or self-care (01) ==
LOC: ER 14:20
DX: M79.661 Pain in right lower leg (principal); V43.62XA Car passenger injured in collision with other type car in traffic accident, initial encounter; J45.909 Unspecified asthma, uncomplicated; F17.200 Nicotine dependence, unspecified, uncomplicated
CPT/HCPCS: 99283

== ENCOUNTER 2017-12-12 12:37 | Emergency (ER) | payer MEDICAID, OTHER ==
[2017-12-12 12:44] VITALS: BP 126/72
[2017-12-12] MEDS ORDERED: KETOROLAC TROMETHAMINE 60 MG/2 ML SDV IM ONE (12:52)
--- NOTE | 2017-12-12 12:54 | ER Document Report ---
HPI - HPI Patient complains to provider of: Sore throat, headache Pain Level: 4 Context: Patient is a 22-year-old healthy female complaining of a headache times 3 days and a sore throat times 2 days. Patient denies any fever, cough, postnasal drip. Patient works at [employer] Associated Symptoms: Body/muscle aches, Headache, Sore throat. 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 IN LAST 30 DAYS: No - HEENT HEENT: Atraumatic, PERRLA, Pharyngeal Tenderness, Pharyngeal Erythema - NECK Neck: Supple, Lymphadenopathy-Right - Positive anterior cervical adenopathy - RESPIRATORY Respiratory: Breath Sounds Normal, No Respiratory Distress - CARDIOVASCULAR Cardiovascular: Regular Rate, Regular Rhythm - GI/ABDOMEN Gastrointestinal: Abdomen Soft, Abdomen Non-Tender - MUSCULOSKELETAL/EXTREMETIES Musculoskeletal/Extremeties: MAEW, FROM - NEURO Level of Consciousness: Awake, Alert, Appropriate - DERM Integumentary: Warm, Dry, No Rash Course - Re-evaluation Re-evalutation: 12/12/17 13:27 Rapid strep is negative. These results were discussed with patient. History and physical are consistent with a viral illness. Patient is neurologically intact, no signs of sepsis or dehydration. No airway compromise or peritonsillar abscess. symptomatic support discussed with patient. Home care , primary care follow-up and ED return precautions were discussed with the patient. Patient agrees with plan is stable for discharge 12/12/17 13:30 - Vital Signs Vital signs: Temp Pulse Resp BP Pulse Ox 98.7 F 90 14 126/72 H 99 12/12/17 12:42 12/12/17 12:42 12/12/17 12:42 12/12/17 12:42 12/12/17 12:42 Discharge - Discharge Clinical Impression: Sore throat, Viral illness Headache Qualifiers: Headache type: unspecified Headache chronicity pattern: acute headache Intractability: not intractable Qualified Code(s): R51 - Headache Condition: Stable Disposition: HOME, SELF-CARE Instructions: Acetaminophen, Sore Throat ([facility]), Viral Syndrome ([facility]), Steroid Medication Additional Instructions: Your strep test was negative today Your most likely have a viral illness Symptomatic support with Tylenol or ibuprofen Oral steroids as prescribed Lozenges, salt water gargles Rest and hydrate Follow-up with your primary care symptoms persist or worsen Prescriptions: Prednisone 20 mg PO BID #16 tablet Forms: Return to Work
== END 2017-12-12 13:35 | disposition home or self-care (01) ==
LOC: ER 12:37
DX: J02.9 Acute pharyngitis, unspecified (principal); R51 Headache; M79.1 Myalgia; F17.200 Nicotine dependence, unspecified, uncomplicated
CPT/HCPCS: 99283; 96372; 87070; 87880; J1885

== ENCOUNTER 2017-12-16 12:46 | Emergency (ER) | payer MEDICAID ==
[2017-12-16 13:43] LABS: AMORPHOUS SEDIMENT,URINE 1+ /HPF; APPEARANCE,URINE TURBID; BILIRUBIN,URINE SMALL (NEGATIVE); GLUCOSE, URINE NEGATIVE (NEGATIVE); KETONES,URINE TRACE mg/dL (NEGATIVE); LEUKOCYTE ESTERASE,URINE MODERATE (NEGATIVE); NITRITE,URINE NEGATIVE (NEGATIVE); PROTEIN,URINE 100 mg/dL (NEGATIVE); URINE SPECIFIC GRAVITY 1.039
[2017-12-16 13:44] LABS: COLOR,URINE DARK YELLOW
[2017-12-16 14:00] LABS: URINE AMPHETAMINES SCREEN NEGATIVE; URINE BARBITURATES SCREEN NEGATIVE; URINE BENZODIAZEPINES SCREEN NEGATIVE; URINE COCAINE SCREEN NEGATIVE; URINE MARIJUANA (THC) SCREEN NEGATIVE; URINE METHADONE SCREEN NEGATIVE; URINE PHENCYCLIDINE SCREEN NEGATIVE
[2017-12-16] MEDS ORDERED: METOCLOPRAMIDE HCL INJ/PF 10 MG/2 ML SDV IV ONE (14:24)
[2017-12-16] MEDS ORDERED: NORMAL SALINE 1000 ML 1,000 ML IV ONE (14:24)
[2017-12-16] MEDS ORDERED: ONDANSETRON 4 MG TAB.RAPDIS PO ONE (16:00)
[2017-12-16 16:01] VITALS: BP 113/62
--- NOTE | 2017-12-16 16:01 | ER Document Report ---
ED General - General Chief Complaint: Vomiting Stated Complaint: HEAD PAIN Time Seen by Provider: 12/16/17 14:21 TRAVEL OUTSIDE OF THE [place] IN LAST 30 DAYS: No - HPI Patient complains to provider of: Nausea vomiting have been feeling unwell Notes: Patient with multiple complaints mostly complaining of nausea vomiting and pain patient was recently seen for sore throat started on prednisone patient that she has not been compliant with his medication. Patient states continues to feel unwell therefore came back to the ER for further evaluation. Patient denies any fevers and chills. Denies any recent antibiotics denies any recent travel. - Related Data Allergies/Adverse Reactions: No Known Allergies Allergy (Verified 12/16/17 12:52) Past Medical History - Social History Smoking Status: Never Smoker Chew tobacco use (# tins/day): No Frequency of alcohol use: Occasional Drug Abuse: None Family History: Arthritis, CAD, CVA, DM, Hypertension Patient has suicidal ideation: No Patient has homicidal ideation: No Pulmonary Medical History: Reports: Hx Asthma Endocrine Medical History: Reports: Hx Diabetes Mellitus Type 2 - gestational Renal/ Medical History: Denies: Hx Peritoneal Dialysis Skin Medical History: Reports Hx Cellulitis - Immunizations Immunizations up to date: Yes Hx Diphtheria, Pertussis, Tetanus Vaccination: Yes Review of Systems - Review of Systems Constitutional: Other - Feeling unwell EENT: No symptoms reported Cardiovascular: No symptoms reported Respiratory: No symptoms reported Gastrointestinal: Nausea, Vomiting Genitourinary: No symptoms reported Female Genitourinary: No symptoms reported Musculoskeletal: No symptoms reported Skin: No symptoms reported Hematologic/Lymphatic: No symptoms reported Neurological/Psychological: Headaches Physical Exam - Vital signs Vitals: Temp Pulse Resp BP Pulse Ox 98.9 F 98 20 123/63 98 12/16/17 12:58 12/16/17 12:58 12/16/17 12:58 12/16/17 12:58 12/16/17 12:58 Interpretation: Normal - General General appearance: Appears well, Alert - HEENT Head: Normocephalic, Atraumatic Eyes: Normal Pupils: PERRL - Respiratory Respiratory status: No respiratory distress Chest status: Nontender Breath sounds: Normal Chest palpation: Normal - Cardiovascular Rhythm: Regular Heart sounds: Normal auscultation Murmur: No - Abdominal Inspection: Normal Distension: No distension Bowel sounds: Normal Tenderness: Nontender Organomegaly: No organomegaly - Back Back: Normal, Nontender - Extremities General upper extremity: Normal inspection, Nontender, Normal color, Normal ROM , Normal temperature General lower extremity: Normal inspection, Nontender, Normal color, Normal ROM , Normal temperature, Normal weight bearing. No: Estefania's sign - Neurological Neuro grossly intact: Yes Cognition: Normal Orientation: AAOx4 [place] Coma Scale Eye Opening: Spontaneous [place] Coma Scale Verbal: Oriented [place] Coma Scale Motor: Obeys Commands Kaiser Coma Scale Total: 15 Speech: Normal Motor strength normal: LUE, RUE, LLE, RLE Sensory: Normal - Psychological Associated symptoms: Normal affect, Normal mood - Skin Skin Temperature: Warm Skin Moisture: Dry Skin Color: Normal Course - Re-evaluation Re-evalutation: 12/16/17 20:22 The patient presents with nausea vomiting without signs of peritonitis or other life-threatening or serious etiology. The patient appears stable for discharge and has been instructed to return immediately if the symptoms worsen in any way , or in 8-12hr if not improved for re-evaluation. The patient has been instructed to return if the symptoms worsen or change in any way. The patient presents with headache without signs of CHIEF CLIENT OFFICER bleed, stroke, infection, or other serious etiology. The patient is neurologically intact. Given the extremely low risk of these diagnoses further testing and evaluation for these possibilities does not appear to be indicated at this time. The patient has been instructed to return if the symptoms worsen or change in any way.. Patient's laboratory values showed a urine is very concentrated no signs of infection mostly contamination. Patient's chemistry profile did hemolyze is informed patient that she will need to lab redraw however patient states feeling better after IV fluids and nausea medication would like to leave this time. Patient will be discharged - Vital Signs Vital signs: Temp Pulse Resp BP Pulse Ox 98.0 F 70 16 113/62 100 12/16/17 16:01 12/16/17 16:01 12/16/17 16:01 12/16/17 16:01 12/16/17 16:01 - Laboratory Result Diagrams: 12/16/17 14:59 Laboratory results interpreted by me: 12/16/17 13:16 Urine Protein 100 H Urine Ketones TRACE H Urine Blood SMALL H Urine Bilirubin SMALL H Urine Urobilinogen 4.0 H Ur Leukocyte Esterase MODERATE H Discharge - Discharge Clinical Impression: Dehydration, Feeling unwell Nausea & vomiting Qualifiers: Vomiting type: unspecified Vomiting Intractability: unspecified Qualified Code( s): R11.2 - Nausea with vomiting, unspecified Condition: Good Disposition: HOME, SELF-CARE Instructions: Gastroenteritis (adult) ([facility]) Additional Instructions: Your symptoms today are more consistent with a viral illness. Please take medication Zofran and Reglan for your nausea control. Return to ER for any concerning symptoms I do believe her symptoms are viral illness for approximately 3-5 days. I recommend sticking to a bland diet drinking plenty of fluids such as water and Gatorade to stay well-hydrated. Prescriptions: Metoclopramide HCl [Reglan] 5 mg PO Q6 #30 tablet Ondansetron [Zofran Odt] 4 mg PO Q6 PRN #30 tab.rapdis PRN Reason: For Nausea/Vomiting Forms: Return to Work
== END 2017-12-16 16:23 | disposition home or self-care (01) ==
LOC: ER 12:46
DX: R11.2 Nausea with vomiting, unspecified (principal); E86.0 Dehydration; R51 Headache; J02.9 Acute pharyngitis, unspecified; J45.909 Unspecified asthma, uncomplicated
CPT/HCPCS: 99284; 96361; 96374; 36415; 81025; 81001; 80307; J2765; J7030

== ENCOUNTER 2018-05-22 13:54 | Emergency (ER) | payer SELFPAY ==
--- NOTE | 2018-05-22 15:26 | ER Document Report ---
HPI - HPI Patient complains to provider of: Right eye drainage Time Seen by Provider: 05/22/18 15:24 Onset: This morning Onset/Duration: Gradual Pain Level: 3 Context: Patient presents complaining of right eye redness and drainage that started this morning. Patient denies any trauma to the eye. Patient wears glasses but denies any contact lens use. Patient denies any change in vision. Patient is concerned that she has pinkeye. Associated Symptoms: Other - Right eye redness Exacerbated by: Denies Relieved by: Denies Similar symptoms previously: Yes Recently seen / treated by doctor: No - ROS ROS below otherwise negative: Yes Systems Reviewed and Negative: Yes All other systems reviewed and negative - EENT EENT: REPORTS: Eye problems - REPRODUCTIVE Reproductive: DENIES: : - DERM Skin Color: Normal Skin Problems: None Past Medical History - General Information source: Patient - Social History Smoking Status: Current Every Day Smoker Smoking Education Provided: Yes Frequency of alcohol use: None Drug Abuse: None Family History: Arthritis, CAD, CVA, DM, Hypertension Pulmonary Medical History: Reports: Hx Asthma Endocrine Medical History: Reports: Hx Diabetes Mellitus Type 2 - gestational Renal/ Medical History: Denies: Hx Peritoneal Dialysis Skin Medical History: Reports Hx Cellulitis Surgical Hx: Negative - Immunizations Immunizations up to date: Yes Hx Diphtheria, Pertussis, Tetanus Vaccination: Yes Vertical Provider Document - CONSTITUTIONAL Agree With Documented VS: Yes Exam Limitations: No Limitations General Appearance: WD/WN, No Apparent Distress - INFECTION CONTROL TRAVEL OUTSIDE OF THE [place] IN LAST 30 DAYS: No - HEENT HEENT: Atraumatic, Normocephalic Notes: Conjunctive of right eye injected, no corneal abrasion, no corneal foreign body, ulcer or dendrite. Extraocular movements intact. No fluorescein uptake - NECK Neck: Normal Inspection - RESPIRATORY Respiratory: No Respiratory Distress - MUSCULOSKELETAL/EXTREMETIES Musculoskeletal/Extremeties: MAEW - NEURO Level of Consciousness: Awake, Alert, Appropriate - DERM Integumentary: Warm, Dry, No Rash Course - Vital Signs Vital signs: Temp Pulse Resp BP Pulse Ox 98.3 F 84 16 118/68 97 05/22/18 14:01 05/22/18 14:01 05/22/18 14:01 05/22/18 14:01 05/22/18 14:01 Discharge - Discharge Clinical Impression: Conjunctivitis Qualifiers: Conjunctivitis type: unspecified Laterality: right Qualified Code(s): H10.9 - Unspecified conjunctivitis Condition: Stable Disposition: HOME, SELF-CARE Instructions: Conjunctivitis ([facility]), Eyedrop Use ([facility]) Additional Instructions: Return immediately for any new or worsening symptoms Followup with your primary care provider, call tomorrow to make a followup appointment Follow-up with ophthalmology for recheck, call tomorrow for an appointment Prescriptions: Polymyxin B Sulfate/Tmp [Polytrim Oph Soln 10 ml] 1 drop RT_EYE ASDIR #1 bottle Forms: Smoking Cessation Education, Return to Work Referrals: [facility] [Provider Group] - Follow up as needed [facility] [Provider Group] - Follow up as needed
[2018-05-22 15:40] VITALS: BP 111/68
== END 2018-05-22 15:42 | disposition home or self-care (01) ==
LOC: ER 13:54
DX: H10.9 Unspecified conjunctivitis (principal); H57.11 Ocular pain, right eye; F17.200 Nicotine dependence, unspecified, uncomplicated; J45.909 Unspecified asthma, uncomplicated
CPT/HCPCS: 99282

== ENCOUNTER 2018-05-24 16:27 | Emergency (ER) | payer SELFPAY ==
--- NOTE | 2018-05-24 17:34 | ER Document Report ---
ED Medical Screen (RME) - General Chief Complaint: Abdominal Pain Stated Complaint: ABDOMINAL PAIN Time Seen by Provider: 05/24/18 17:33 Notes: Patient says that she has been having stomach pain for the past 2 weeks. Pains are located primarily in the upper left abdominal region. She has had some vomiting, about 3 times total during the 2 weeks. Also some headache. No diarrhea. No fevers. LMP 12/9. Patient also says she has pinkeye. Was seen here for this 3 days ago but nothing was prescribed, according to the patient. TRAVEL OUTSIDE OF THE [place] IN LAST 30 DAYS: No - Related Data Allergies/Adverse Reactions: No Known Allergies Allergy (Verified 05/24/18 16:35) Past Medical History - Social History Frequency of alcohol use: None Drug Abuse: None Pulmonary Medical History: Reports: Hx Asthma Endocrine Medical History: Reports: Hx Diabetes Mellitus Type 2 - gestational Renal/ Medical History: Denies: Hx Peritoneal Dialysis Skin Medical History: Reports Hx Cellulitis - Immunizations Immunizations up to date: Yes Hx Diphtheria, Pertussis, Tetanus Vaccination: Yes Physical Exam - Vital signs Vitals: Temp Pulse Resp BP Pulse Ox 99.3 F 70 16 125/73 97 05/24/18 16:41 05/24/18 16:41 05/24/18 16:41 05/24/18 16:41 05/24/18 16:41 Course - Vital Signs Vital signs: Temp Pulse Resp BP Pulse Ox 99.3 F 70 16 125/73 97 05/24/18 16:41 05/24/18 16:41 05/24/18 16:41 05/24/18 16:41 05/24/18 16:41
[2018-05-24 18:17] LABS: ABSOLUTE EOSINOPHILS # (AUTO) 0.2 10^3/uL (0.0-0.6); ABSOLUTE MONOCYTES (AUTO) 0.4 10^3/uL (0.1-1.4); ABSOLUTE NEUT (AUTO) 2.8 10^3/uL (1.7-8.2); BASOPHILS % (AUTO) 0.2 % (0-2); HEMATOCRIT 44.4 % (36.0-47.0); HEMOGLOBIN 15.3 g/dL (12.0-15.5); LYMPHOCYTES % (AUTO) 36.7 % (13-45); MEAN CORPUSCULAR HEMOGLOBIN 30.1 pg (27.0-33.4); MEAN CORPUSCULAR HGB CONC 34.4 g/dL (32.0-36.0); MEAN CORPUSCULAR VOLUME 88 fl (80-97); MONOCYTES % (AUTO) 7.6 % (3-13); PLATELET COUNT 186 10^3/uL (150-450); RED BLOOD COUNT 5.07 10^6/uL (3.72-5.28); RED CELL DISTRIBUTION WIDTH 12.8 % (11.5-14.0); SEGMENTED NEUTROPHILS % (AUTO) 52.5 % (42-78); TOTAL CELLS COUNTED % (AUTO) 100 %; WHITE BLOOD COUNT 5.3 10^3/uL (4.0-10.5)
[2018-05-24 18:20] LABS: APPEARANCE,URINE SLIGHTLY-CLOUDY; BILIRUBIN,URINE NEGATIVE (NEGATIVE); COLOR,URINE YELLOW; GLUCOSE, URINE NEGATIVE (NEGATIVE); KETONES,URINE NEGATIVE (NEGATIVE); LEUKOCYTE ESTERASE,URINE TRACE (NEGATIVE); NITRITE,URINE NEGATIVE (NEGATIVE); PROTEIN,URINE NEGATIVE (NEGATIVE); UROBILINOGEN,URINE NEGATIVE mg/dL (<2.0)
[2018-05-24 18:39] LABS: ALANINE AMINOTRANSFERASE 16 U/L (9-52); ALBUMIN 4.2 g/dL (3.5-5.0); ALKALINE PHOSPHATASE 59 U/L (38-126); ANION GAP 8 (5-19); ASPARTATE AMINO TRANSFERASE 15 U/L (14-36); BILIRUBIN,DIRECT 0.1 mg/dL (0.0-0.4); BILIRUBIN,TOTAL 0.4 mg/dL (0.2-1.3); BLOOD UREA NITROGEN 10 mg/dL (7-20); CARBON DIOXIDE 28 mmol/L (22-30); CHLORIDE 104 mmol/L (98-107); GLUCOSE 93 mg/dL (75-110); POTASSIUM 4.3 mmol/L (3.6-5.0); SODIUM 139.8 mmol/L (137-145); TOTAL PROTEIN 7.2 g/dL (6.3-8.2)
[2018-05-24] MEDS ORDERED: ACETAMINOPHEN 325 MG TABLET PO ONE (19:30)
[2018-05-24] MEDS ORDERED: FAMOTIDINE 20 MG TABLET PO ONE (19:30)
--- NOTE | 2018-05-24 19:35 | ER Document Report ---
ED General - General Chief Complaint: Abdominal Pain Stated Complaint: ABDOMINAL PAIN Time Seen by Provider: 05/24/18 17:33 Notes: Patient is a 22-year-old female without any chronic medical problems who presents with multiple complaints. Patient's chief reason for coming to the emergency department today is that she has had 2 weeks of intermittent epigastric and left upper quadrant abdominal pain with associated intermittent nausea and vomiting. She states this does seem to be somewhat triggered by food although she is uncertain of specific food items that trigger the pain. She denies any seems to make the pain go away, does resolve spontaneously. She currently denies any abdominal pain of any kind. She has not seen her general physician regarding this concern. She has no abdominal surgical history. She has not had any diarrhea, melena or hematochezia. No dysuria, vaginal bleeding, or chest pain. She has not done anything to try to treat her symptoms. She also complains of a painful lump just outside the tragus of her right ear as well as right ear pain and decreased hearing from the right ear. She also notes that she has had a bilateral conjunctivitis, more dominant on the right side that has been ongoing for the past 3-4 days. TRAVEL OUTSIDE OF THE [place] IN LAST 30 DAYS: No - Related Data Allergies/Adverse Reactions: No Known Allergies Allergy (Verified 05/24/18 16:35) Past Medical History - General Information source: Patient - Social History Smoking Status: Current Every Day Smoker Frequency of alcohol use: None Drug Abuse: None Lives with: Family Family History: Arthritis, CAD, CVA, DM, Hypertension Patient has suicidal ideation: No Patient has homicidal ideation: No Pulmonary Medical History: Reports: Hx Asthma Endocrine Medical History: Reports: Hx Diabetes Mellitus Type 2 - gestational Renal/ Medical History: Denies: Hx Peritoneal Dialysis Skin Medical History: Reports Hx Cellulitis - Immunizations Immunizations up to date: Yes Hx Diphtheria, Pertussis, Tetanus Vaccination: Yes Review of Systems - Review of Systems Notes: Constitutional: Negative for fever. HENT: Positive for right ear pain Eyes: Positive for bilateral conjunctivitis Cardiovascular: Negative for chest pain. Respiratory: Negative for shortness of breath. Gastrointestinal: Positive for upper abdominal pain and vomiting Genitourinary: Negative for dysuria. Musculoskeletal: Negative for back pain. Skin: Negative for rash. Neurological: Negative for headaches, weakness or numbness. 10 point ROS negative except as marked above and in HPI. Physical Exam - Vital signs Vitals: Temp Pulse Resp BP Pulse Ox 99.3 F 70 16 125/73 97 05/24/18 16:41 05/24/18 16:41 05/24/18 16:41 05/24/18 16:41 05/24/18 16:41 Interpretation: Normal Notes: PHYSICAL EXAMINATION: GENERAL: Well-appearing, well-nourished and in no acute distress. HEAD: Atraumatic, normocephalic. EYES: Pupils equal round and reactive to light, extraocular movements intact, bilateral conjunctival injection and serous drainage and hyperlacrimation zachariah aterally. More prominent on the right. No periorbital swelling, erythema or edema. ENT: nares patent, oropharynx clear without exudates. Moist mucous membranes. Right TM with serous effusion, no purulence or significant bulging. Left TM clear. There is a noted lymphadenopathy just medial to the right tragus. No pain over palpation of the mastoid. NECK: Normal range of motion, supple without lymphadenopathy LUNGS: Breath sounds clear to auscultation bilaterally and equal. No wheezes ra les or rhonchi. HEART: Regular rate and rhythm without murmurs ABDOMEN: Soft, nontender, normoactive bowel sounds. No guarding, no rebound. No masses appreciated. EXTREMITIES: Normal range of motion, no pitting or edema. No cyanosis. NEUROLOGICAL: No focal neurological deficits. Moves all extremities spontaneously and on command. PSYCH: Normal mood, normal affect. SKIN: Warm, Dry, normal turgor, no rashes or lesions noted. Course - Re-evaluation Re-evalutation: 05/24/18 19:30 Patient presents with epigastric abdominal pain with associated reflux symptoms most consistent with likely gastritis. Patient has no focal abdominal tenderness on examination. Lipase is normal. No LFT changes. Based on history and exam, I do not suspect ACS, pulmonary embolus, SBO, mesenteric ischemia, acute pancreatitis, biliary pathology, or an abdominal aortic dissection. Patient had no abdominal pain by exam or history at the time of my assessment. The patient did also complain of right ear pain as well as a lymph node that was swollen near the tragus. Examination of the tympanic membrane does reveal a serous effusion without bulging or purulent effusion. The patient does also have a bilateral conjunctivitis more prominent on the right. I have advised that this is likely secondary to a viral infection and should all spontaneously resolve within the next 1 week. I have however prescribed a wait and see prescription for amoxicillin for possible otitis media and advised the patient that should her pain in the right ear not improving the next 48 hours she can start this medication for treatment of a possible bacterial otitis media. No history or evidence of acute mastoiditis. At this time will discharge with r eturn precautions and follow-up recommendations. Verbal discharge instructions given a the bedside and opportunity for questions given. Medication warnings reviewed. Patient is in agreement with this plan and has verbalized understanding of return precautions and the need for primary care follow-up in the next 24-72 hours. - Vital Signs Vital signs: Temp Pulse Resp BP Pulse Ox 99.3 F 70 16 125/73 97 05/24/18 16:41 05/24/18 16:41 05/24/18 16:41 05/24/18 16:41 05/24/18 16:41 - Laboratory Result Diagrams: 05/24/18 17:55 05/24/18 17:55 Laboratory results interpreted by me: 05/24/18 17:55 Ur Leukocyte Esterase TRACE H Discharge - Discharge Clinical Impression: Upper abdominal pain Nausea and vomiting Qualifiers: Vomiting type: unspecified Vomiting Intractability: non-intractable Qualified Code(s): R11.2 - Nausea with vomiting, unspecified Right otitis media Qualifiers: Otitis media type: serous Chronicity: acute Recurrence: not specified as recurrent Qualified Code(s): H65.01 - Acute serous otitis media, right ear Conjunctivitis Qualifiers: Conjunctivitis type: unspecified Laterality: bilateral Qualified Code(s): H10.9 - Unspecified conjunctivitis Condition: Good Disposition: HOME, SELF-CARE Additional Instructions: You were seen today for ear pain and have an acute ear infection. This is likely due to a virus. However, if your ear pain is not improving within the next 48 hours, please take the antibiotic that has been prescribed until it is completed even if you are feeling better before you have finished all the antibiotics. For your pain: Take ibuprofen 600 mg and acetaminophen 1000 mg every 6 hours together as needed for pain. Return if you have worsening of your pain, loss of hearing in the affected ear, worsening facial pain, headaches, pass out, or any other symptoms that are worrisome to you. Your upper abdominal pain appear to be most consistent with stomach or upper intestinal irritation. Please begin taking famotidine 40 mg in the morning and 40 mg at night. This medicine can be purchased directly [id number]. You may also take medicine such as Pepto-Bismol or Tums to assist with your pain. Please return to emergency department immediately if you have worsening of your pain, shortness of breath, vomiting, become unable to exert yourself due to pain or difficulty breathing, you pass out, or have any pain that radiates into your arms, jaw, or back. Please also return if you have any additional symptoms that are concerning to you. As we have discussed, the most important thing is lifestyle changes. You need to avoid smoking, sodas, tea, coffee, alcohol, spicy foods, and acidic foods such as citrus fruits, tomato based products, berries, and most fruit juices. Prescriptions: Amoxicillin 1 tab PO TID #30 tab Famotidine 40 mg PO BID #60 tablet Sucralfate [Carafate 1 gm Tablet] 1 gm PO ACHS #120 tablet Forms: Return to Work
[2018-05-24 19:59] VITALS: BP 111/75
== END 2018-05-24 20:00 | disposition home or self-care (01) ==
LOC: ER 16:27
DX: H65.01 Acute serous otitis media, right ear (principal); H92.01 Otalgia, right ear; H10.9 Unspecified conjunctivitis; R10.10 Upper abdominal pain, unspecified; F17.200 Nicotine dependence, unspecified, uncomplicated
CPT/HCPCS: 36415; 80053; 81001; 83690; 84703; 85025; 99284

== ENCOUNTER 2018-07-21 15:19 | Emergency (ER) | payer SELFPAY ==
--- NOTE | 2018-07-21 16:36 | ER Document Report ---
ED Medical Screen (RME) - General Chief Complaint: Breast Lump Stated Complaint: BREAST PAIN Time Seen by Provider: 07/21/18 16:35 Notes: Patient is a 22-year-old female that presents to the emergency department for chief complaint of breast pain. Patient reports noting swelling and tenderness to her right breast she has noticed this in the past and went down a few months ago, but it came back and seems to be worse now. ROS: Other than noted above, the 12 point review of systems was reviewed with the patient and were negative, all pertinent findings are included in the HPI. PHYSICAL EXAMINATION: Vital signs reviewed. GENERAL: Well-appearing, well-nourished and in no acute distress. HEAD: Atraumatic, normocephalic. EYES: Pupils equal round extraocular movements intact, conjunctiva are normal. ENT: Nares patent NECK: Normal range of motion CV: Heart regular rate and rhythm LUNGS: No respiratory distress Breast exam: With gut puller present, patient's right breast was examined, there was a palpable large subareolar abscess on the right. Musculoskeletal: Normal range of motion NEUROLOGICAL: Normal speech PSYCH: Normal mood, normal affect. MDM: Patient seen and examined for rapid initial assessment. Vital signs reviewed. A comprehensive ED assessment and evaluation of the patient, analysis of test results and completion of the medical decision making process will be conducted by additional ED providers. *Note is created using voice recognition software and may contain spelling, syntax or grammatical errors. TRAVEL OUTSIDE OF THE [place] IN LAST 30 DAYS: No - Related Data Allergies/Adverse Reactions: No Known Allergies Allergy (Verified 05/24/18 16:35) Past Medical History Pulmonary Medical History: Reports: Hx Asthma Endocrine Medical History: Reports: Hx Diabetes Mellitus Type 2 - gestational Renal/ Medical History: Denies: Hx Peritoneal Dialysis Skin Medical History: Reports Hx Cellulitis - Immunizations Immunizations up to date: Yes Hx Diphtheria, Pertussis, Tetanus Vaccination: Yes
[2018-07-21] MEDS ORDERED: ACETAMINOPHEN 325 MG TABLET PO ONE (16:37)
[2018-07-21 16:39] VITALS: BP 119/64
== END 2018-07-21 18:52 | disposition left against medical advice (07) ==
LOC: ER 15:19
DX: N61.1 Abscess of the breast and nipple (principal); J45.909 Unspecified asthma, uncomplicated; Z53.20 Procedure and treatment not carried out because of patient's decision for unspecified reasons
CPT/HCPCS: 81025; 99281

== ENCOUNTER 2018-07-23 09:53 | Observation (INO) | payer SELFPAY ==
--- NOTE | 2018-07-23 10:04 | ER Document Report ---
ED Medical Screen (RME) - General Chief Complaint: Breast Problem Stated Complaint: BREAST PAIN Time Seen by Provider: 07/23/18 10:02 Notes: 22 years old female presents today with nodules in the right breast, noted for a month. Somewhat painful. She is not breast-feeding. TRAVEL OUTSIDE OF THE [place] IN LAST 30 DAYS: No - Related Data Allergies/Adverse Reactions: No Known Allergies Allergy (Verified 07/23/18 09:56) Past Medical History Pulmonary Medical History: Reports: Hx Asthma Endocrine Medical History: Reports: Hx Diabetes Mellitus Type 2 - gestational Renal/ Medical History: Denies: Hx Peritoneal Dialysis Skin Medical History: Reports Hx Cellulitis - Immunizations Immunizations up to date: Yes Hx Diphtheria, Pertussis, Tetanus Vaccination: Yes Physical Exam - Vital signs Vitals: Temp Pulse Resp BP Pulse Ox 97.7 F 93 14 127/64 H 100 07/23/18 09:56 07/23/18 09:56 07/23/18 09:56 07/23/18 09:56 07/23/18 09:56 Course - Vital Signs Vital signs: Temp Pulse Resp BP Pulse Ox 97.7 F 93 14 127/64 H 100 07/23/18 09:56 07/23/18 09:56 07/23/18 09:56 07/23/18 09:56 07/23/18 09:56
[2018-07-23] MEDS ORDERED: HYDROCODONE/ACETAMINOPHEN 10-325 MG TABLET PO ONE (11:31)
--- NOTE | 2018-07-23 14:08 | RADIOLOGY REPORT (SQ) ---
EXAM DESCRIPTION: U/S BREAST UNILATERAL LIMITED COMPLETED DATE/TIME: 07/23/2018 1:24 pm REASON FOR STUDY: right, swelling possible infection COMPARISON: None TECHNIQUE: Static and Realtime grayscale interrogation of focal area of redness and swelling in the right lower outer quadrant breast. Color flow grayscale and cine loop images saved to pac's. Select ed color doppler/spectral images saved to PACS. LIMITATIONS: None. FINDINGS: In the right lower outer quadrant about the 7 to 8 o'clock position periareolar breast, a 4 cm x 3.6 cm x 3.4 cm abscess is present. There is a finger-like projection of abscess tracking up towards the skin along the areolar margin at the 7 o'clock position. This area was marked with a skin marker on the patient's skin with an X for incision and drainage. These findings were discussed with Too Patel in the emergency room. Ultrasound of the right axilla demonstrates several small hypoechoic reactive lymph nodes. IMPRESSION: Right lower outer quadrant breast abscess 4 x 3.6 x 3.4 cm in size BIRAD: 1 Negative. RECOMMENDATION: RECOMMENDED FOLLOW-UP: Follow-up as clinically indicated. COMMENT: The [employer] ([employer]) has developed recommendations for screening MRI of the breasts in certain patient populations, to be used in conjunction with mammography. Breast MRI s urveillance may be appropriate for women with more than 20% lifetime risk of developing breast cancer as determined by genetic testing, significant family history of the disease, or history of mantle r adiation for Hodgkins Disease. ACR Practice Guidelines 2008. TECHNICAL DOCUMENTATION: FINDING NUMBER: (1) ASSESSMENT: (1) JOB ID: [id number] [employer]- All Rights Reserved Reading location - IP/workstation name: [email or web address]
[2018-07-23] MEDS ORDERED: FENTANYL CITRATE INJ/PF 100 MCG/2 ML AMPUL IV ONE ×2 (14:24→18:50)
[2018-07-23] MEDS ORDERED: RINGERS SOLUTION,LACTATED 1,000 ML IV ONE (14:24)
[2018-07-23 15:58] LABS: ABSOLUTE EOSINOPHILS # (AUTO) 0.2 10^3/uL (0.0-0.6); ABSOLUTE MONOCYTES (AUTO) 0.8 10^3/uL (0.1-1.4); ABSOLUTE NEUT (AUTO) 7.7 10^3/uL (1.7-8.2); BASOPHILS % (AUTO) 0.3 % (0-2); EOSINOPHILS % (AUTO) 1.8 % (0-6); HEMATOCRIT 37.9 % (36.0-47.0); HEMOGLOBIN 12.9 g/dL (12.0-15.5); LYMPHOCYTES % (AUTO) 25.8 % (13-45); MEAN CORPUSCULAR HEMOGLOBIN 29.7 pg (27.0-33.4); MEAN CORPUSCULAR HGB CONC 34.1 g/dL (32.0-36.0); MEAN CORPUSCULAR VOLUME 87 fl (80-97); MONOCYTES % (AUTO) 7.1 % (3-13); PLATELET COUNT 177 10^3/uL (150-450); RED BLOOD COUNT 4.35 10^6/uL (3.72-5.28); RED CELL DISTRIBUTION WIDTH 12.4 % (11.5-14.0); TOTAL CELLS COUNTED % (AUTO) 100 %; WHITE BLOOD COUNT 11.8 10^3/uL (4.0-10.5)
[2018-07-23 16:18] LABS: ALANINE AMINOTRANSFERASE 17 U/L (9-52); ALBUMIN 3.6 g/dL (3.5-5.0); ALKALINE PHOSPHATASE 54 U/L (38-126); ANION GAP 9 (5-19); ASPARTATE AMINO TRANSFERASE 9 U/L (14-36); BILIRUBIN,DIRECT 0.3 mg/dL (0.0-0.4); BILIRUBIN,TOTAL 0.4 mg/dL (0.2-1.3); BLOOD UREA NITROGEN 8 mg/dL (7-20); CALCIUM 9.3 mg/dL (8.4-10.2); CARBON DIOXIDE 26 mmol/L (22-30); CHLORIDE 104 mmol/L (98-107); GLUCOSE 105 mg/dL (75-110); POTASSIUM 4.1 mmol/L (3.6-5.0); SODIUM 138.5 mmol/L (137-145); TOTAL PROTEIN 6.2 g/dL (6.3-8.2)
[2018-07-23] MEDS ORDERED: ACETAMINOPHEN 325 MG TABLET ONE (18:11)
[2018-07-23] MEDS ORDERED: ACETAMINOPHEN 325 MG TABLET PO ONE (18:12)
--- NOTE | 2018-07-23 19:08 | PDOC H&P ---
History of Present Illness Patient complains of: Right breast pain History of Present Illness: ROCÍO LEWIS is a 22 year old female presenting with 1 week history of right breast swelling with pain with fever but no drainage. No prior episode of right breast problems. She had a a year ago but did not breast-feed. There is no family history of breast cancer. She has had no breast problems up until now. Past Medical History Pulmonary Medical History: Reports: Asthma Endocrine Medical History: Reports: Diabetes Mellitus Type 2 - gestational Past Surgical History Past Surgical History: Reports: Other - Buttocks abscess drainage in the remote past Social History Smoking Status: Current Every Day Smoker Frequency of Alcohol Use: Social Hx Recreational Drug Use: No Hx Prescription Drug Abuse: No Family History Family History: Reviewed & Not Pertinent - No history of breast problems in the family, Arthritis, CAD, CVA, DM, Hypertension Parental Family History Reviewed: Yes Children Family History Reviewed: Yes Sibling(s) Family History Reviewed.: Yes Medication/Allergy Home Medications: No Home Medications 07/21/18 Allergies/Adverse Reactions: No Known Allergies Allergy (Verified 07/23/18 09:56) Physical Exam Vital Signs: Temp Pulse Resp BP Pulse Ox 100.7 F H 84 18 118/54 L 100 07/23/18 18:23 07/23/18 18:23 07/23/18 18:23 07/23/18 18:23 07/23/18 09:56 Intake & Output 07/22/18 07/23/18 07/24/18 06:59 06:59 06:59 Intake Total 1000 Balance 1000 Weight 94.1 kg General appearance: PRESENT: no acute distress, cooperative Eye exam: PRESENT: conjunctiva pink Respiratory exam: PRESENT: clear to auscultation zachariah Cardiovascular exam: PRESENT: RRR GI/Abdominal exam: PRESENT: other - Soft, nondistended, nontender to palpation. Neurological exam: PRESENT: alert, awake Psychiatric exam: PRESENT: appropriate affect Additional comments: Bilateral breasts are symmetrical. No palpable left breast abnormalities. Right breast centered around the lateral areolar breast junction and to the inferior laterally with marked tenderness and erythema with overlying skin induration and a sense of underlying fluctuance. No nipple discharge. Palpable right axillary lymph node that is mobile and tender. No left axillary nor supraclavicular lymphadenopathy. Results Laboratory Results: 07/23/18 15:40 07/23/18 15:40 07/23/18 07/23/18 07/23/18 15:40 15:40 15:40 WBC 11.8 H RBC 4.35 Hgb 12.9 Hct 37.9 MCV 87 MCH 29.7 MCHC 34.1 RDW 12.4 Plt Count 177 Seg Neutrophils % 65.0 Lymphocytes % 25.8 Monocytes % 7.1 Eosinophils % 1.8 Basophils % 0.3 Absolute Neutrophils 7.7 Absolute Lymphocytes 3.0 Absolute Monocytes 0.8 Absolute Eosinophils 0.2 Absolute Basophils 0.0 Sodium 138.5 Potassium 4.1 Chloride 104 Carbon Dioxide 26 Anion Gap 9 BUN 8 Creatinine 0.79 Est GFR ( Amer) > 60 Est GFR (Non-Af Amer) > 60 Glucose 105 Calcium 9.3 Total Bilirubin 0.4 AST 9 L ALT 17 Alkaline Phosphatase 54 Total Protein 6.2 L Albumin 3.6 Serum HCG, Qual NEGATIVE Impressions: Breast Ultrasound 07/23/18 12:52 IMPRESSION: Right lower outer quadrant breast abscess 4 x 3.6 x 3.4 cm in size Assessment & Plan - Diagnosis (1) Breast abscess Is this a current diagnosis for this admission?: Yes Plan: Right breast abscess. I have discussed with the patient the risk and benefits of surgical debridement versus needle aspiration and antibiotics, including risk of scarring and recurrence and prolonged wound healing with the surgical debridement. Higher recurrence and possibility of inadequate drainage with the needle aspiration. Patient prefers surgical debridement and I will plan this procedure tonight. Patient understands the nature of the procedure and the time it will take to recover afterwards and the dressing changes that would be required after surgery.
--- NOTE | 2018-07-23 19:20 | ER Document Report ---
ED Breast Problem - General Chief Complaint: Breast Problem Stated Complaint: BREAST PAIN Time Seen by Provider: 07/23/18 10:02 Notes: Patient is an otherwise healthy 22-year-old female presents to the emergency department with redness and swelling noted to her right breast. Patient states she is not on hormonal control or any control, states she is not breast-feeding and has never breast-fed. States she has noticed the redness and swelling for the last couple of days. Patient is denying any fever or any other complaints. Patient states she has had a abscess that needed to be drained in the emergency department on her lower leg a couple of years ago. Past medical history: None Medications: None Allergies: None TRAVEL OUTSIDE OF THE [place] IN LAST 30 DAYS: No - Related Data Allergies/Adverse Reactions: No Known Allergies Allergy (Verified 07/23/18 09:56) Past Medical History - General Information source: Patient - Social History Smoking Status: Current Every Day Smoker Chew tobacco use (# tins/day): No Frequency of alcohol use: None Drug Abuse: None Family History: Reviewed & Not Pertinent - No history of breast problems in the family, Arthritis, CAD, CVA, DM, Hypertension Patient has suicidal ideation: No Patient has homicidal ideation: No Pulmonary Medical History: Reports: Hx Asthma Endocrine Medical History: Reports: Hx Diabetes Mellitus Type 2 - gestational Renal/ Medical History: Denies: Hx Peritoneal Dialysis Skin Medical History: Reports Hx Cellulitis Past Surgical History: Reports: Other - Buttocks abscess drainage in the remote past - Immunizations Immunizations up to date: Yes Hx Diphtheria, Pertussis, Tetanus Vaccination: Yes Review of Systems - Review of Systems Constitutional: See HPI EENT: No symptoms reported Cardiovascular: No symptoms reported Respiratory: No symptoms reported Gastrointestinal: No symptoms reported Genitourinary: No symptoms reported Female Genitourinary: No symptoms reported Musculoskeletal: No symptoms reported Skin: See HPI Hematologic/Lymphatic: No symptoms reported Neurological/Psychological: No symptoms reported Physical Exam - Vital signs Vitals: Temp Pulse Resp BP Pulse Ox 97.7 F 93 14 127/64 H 100 07/23/18 09:56 07/23/18 09:56 07/23/18 09:56 07/23/18 09:56 07/23/18 09:56 - Notes Notes: GENERAL: Alert, interacts well. No acute distress. HEAD: Normocephalic, atraumatic. EYES: Pupils equal, round, and reactive to light. Extraocular movements intact. ENT: Oral mucosa moist, tongue midline. NECK: Full range of motion. Supple. Trachea midline. LUNGS: Clear to auscultation bilaterally, no wheezes, rales, or rhonchi. No respiratory distress. HEART: Regular rate and rhythm. No murmur ABDOMEN: Soft, non-tender. Non-distended. Bowel sounds present in all 4 quadrants. EXTREMITIES: Moves all 4 extremities spontaneously. No edema, normal radial and dorsalis pedis pulses bilaterally. No cyanosis. BACK: no cervical, thoracic, lumbar midline tenderness. No saddle anesthesia, normal distal neurovascular exam. NEUROLOGICAL: Alert and oriented x3. Normal speech. cranial nerves II through XII grossly intact PSYCH: Normal affect, normal mood. SKIN: Warm, dry, normal turgor. 6 cm x 6 cm area noted of erythema and induration to the right breast overlying the areola 7:00. Course - Re-evaluation Re-evalutation: Initially discussed case with the surgical list Dr. Molina who states he will be in surgery all morning and will attend to the patient in the afternoon. Discussed this with patient at bedside. Ultrasound does reveal an abscess that will need to be drained. Continue to update the patient on the surgeons current cases and that we would be happy to continue with her pain control if needed. Patient has been n.p.o. since she arrived to the emergency room and is stating at this time her pain is well controlled. Surgeon Dr. Molina did come to see the patient and is going to take the patient to the operating room for incision and drain. - Vital Signs Vital signs: Temp Pulse Resp BP Pulse Ox 100.7 F H 84 18 118/54 L 100 07/23/18 18:23 07/23/18 18:23 07/23/18 18:23 07/23/18 18:23 07/23/18 09:56 - Laboratory Result Diagrams: 07/23/18 15:40 07/23/18 15:40 Laboratory results interpreted by me: 07/23/18 07/23/18 15:40 15:40 WBC 11.8 H AST 9 L Total Protein 6.2 L Discharge - Discharge Clinical Impression: Breast abscess Condition: Stable Disposition: ADMITTED OBSERVATION Admitting Provider: Surgicalist - Dr. Molina Unit Admitted: Surgical Floor
[2018-07-23] MEDS ORDERED: CEFAZOLIN 2 GM/D5W RTU 2 GM/50 ML RTUPB IV ONE (20:00)
[2018-07-24] MEDS ORDERED: DEXAMETHASONE SOD PHOSPHATE INJ 4 MG/1 ML VIAL ONE (00:07)
[2018-07-24] MEDS ORDERED: LIDOCAINE 2% INJ-PF (100 MG/5 ML) SYRINGE ONE ×2 (00:07→00:23)
[2018-07-24] MEDS ORDERED: KETAMINE HCL INJ 500 MG/10 ML VIAL ONE (00:07)
[2018-07-24] MEDS ORDERED: FENTANYL CITRATE INJ/PF 100 MCG/2 ML AMPUL ONE (00:07)
[2018-07-24] MEDS ORDERED: MIDAZOLAM 2 MG/2 ML INJ ONE (00:07)
[2018-07-24] MEDS ORDERED: PROPOFOL INJ 200 MG/20 ML VIAL IV ONE (00:08)
[2018-07-24] MEDS ORDERED: ACETAMINOPHEN 1,000 MG/100 ML RTUPB IV ONE (00:08)
[2018-07-24] MEDS ORDERED: ONDANSETRON HCL INJ/PF 4 MG/2 ML SDV ONE (00:08)
[2018-07-24] MEDS ORDERED: BUPIVACAINE HCL 0.25 % INJ/PF (2.5 MG/1 ML) 30 ML VIAL ONE (00:14)
[2018-07-24] MEDS ORDERED: MEPERIDINE HCL/PF INJ 25 MG/1 ML DISP.SYRIN IV PRN (00:19)
[2018-07-24] MEDS ORDERED: ONDANSETRON HCL INJ/PF 4 MG/2 ML SDV IV PRN (00:19)
[2018-07-24] MEDS ORDERED: FENTANYL CITRATE INJ/PF 100 MCG/2 ML AMPUL IV PRN ×3 (00:19)
[2018-07-24] MEDS ORDERED: DIPHENHYDRAMINE HCL 50 MG/ML VIAL IV PRN (00:19)
[2018-07-24] MEDS ORDERED: PROMETHAZINE HCL INJ 25 MG/1 ML VIAL IV PRN ×2 (00:19)
[2018-07-24] MEDS ORDERED: MORPHINE SULFATE 10 MG/ML INJ IV PRN (02:09)
--- NOTE | 2018-07-24 02:09 | Operative Report ---
Operative Report DATE OF SURGERY: 07/24/18 PREOPERATIVE DIAGNOSIS: Right breast abscess POSTOPERATIVE DIAGNOSIS: Right breast abscess OPERATION: Right breast abscess incision and drainage SURGEON: AMBER DALEY ANESTHESIA: GA TISSUE REMOVED OR ALTERED: Pus for Gram stain and culture COMPLICATIONS: None ESTIMATED BLOOD LOSS: 20 cc INTRAOPERATIVE FINDINGS: [place] sized abscess cavity in the subareolar region filled with pus PROCEDURE: Informed consent was obtained. Patient was brought to the operating room and placed on the operating table in the supine position. After satisfactory induction of general anesthesia patient's right breast was prepped and draped in the usual sterile fashion. A right breast periareolar incision was made at the lateral inferior aspect and dissection was carried down entering an abscess cavity that extended to the sub-areolar region. The abscess pocket was about walnut sized and was filled with pus. There was debris as well. All of the debris and pus was evacuated and the pocket was digitally probed to make sure there were no loculations. Hemostasis was achieved with electrocautery. The wound was then irrigated and irrigant aspirated out. Local anesthetic was administered. The wound was then packed with plain gauze packing. Patient latonya erated procedure well with no apparent complications and was taken to the recovery area in stable condition.
[2018-07-24] MEDS ORDERED: NORMAL SALINE 1000 ML 1,000 ML IV PRN (02:21)
[2018-07-24] MEDS ORDERED: KETOROLAC TROMETHAMINE INJ/PF 30 MG/1 ML SDV IV ONE (09:00)
[2018-07-24] MEDS ORDERED: CEFAZOLIN 1 GM/D5W RTU 1 GM/50 ML RTUPB IV SCH (09:00)
[2018-07-24 11:02] VITALS: BP 127/64
--- NOTE | 2018-07-25 15:35 | DISCHARGE SUMMARY E ---
Discharge Summary NAME: ROCÍO LEWIS : 1995 AGE: 22Y ADMITTED: 07/23/2018 DISCHARGED: 07/24/2018 PROCEDURE DONE: I and D of right breast abscess. SURGEON: Dr. Molina [facility] COURSE: This is a 22-year-old female who developed pains along the right breast for 1 week prior to being seen in the ED. She was noted to have an abscess of the right breast and taken to the OR in director of early childhood education of 07/24/[address] Molina. Postoperatively the packing on the right breast was removed and new packing placed. The wound looks good on the day of discharge. She was given a prescription for Keflex 500 mg p.o. 4 times a day for a week. Arrangements also made for her to be followed up in the surgical clinic for change of wound packing on a daily basis. Also prescription for Toradol was given p.r.n. for pain. Patient discharged improved with above final diagnosis on 07/24/2018. DICTATING PHYSICIAN: EUGENE ZIMMERMAN M.D. [id number] PHY#: [id number] ID: [id number] JOB#: [id number] ACCT: [id number] cc:[facility], [facility], FAUSTINO M.D. [facility], [facility] >
== END 2018-07-24 11:55 | disposition home or self-care (01) ==
LOC: ER 09:53 → EH 19:45 → 2N 20:44
PROVIDERS: ATTEND Surgery
PROC: 0H9T0ZZ Drainage of Right Breast, Open Approach (ICD-10-PCS; principal; 2018-07-24)
DX: N61.1 Abscess of the breast and nipple (principal); F17.200 Nicotine dependence, unspecified, uncomplicated
CPT/HCPCS: 96376; 99284; 96361; 96374; 36415; 87070; 87205; 84703; 85025; 87075; 87077; 80053; 87186; 76642; 10060; G0378 ×2; A6266; J2250; J0690 ×2; J1100; J3010 ×2; J2001; J1885; J2405; J7120; J2704; J0131; 400; J3490

== ENCOUNTER 2019-02-01 01:40 | Emergency (ER) | payer SELFPAY ==
[2019-02-01] MEDS ORDERED: ACETAMINOPHEN 325 MG TABLET PO ONE (04:27)
[2019-02-01] MEDS ORDERED: LIDOCAINE 1%/EPINEPHRINE INJ 20 ML VIAL INJ ONE (04:44)
--- NOTE | 2019-02-01 04:47 | ER Document Report ---
ED Wound - General Chief Complaint: Laceration Stated Complaint: ARM INJURY Time Seen by Provider: 02/01/19 04:39 Notes: Patient is a 23-year-old female that comes emergency department for chief complaint of laceration to the right forearm. She states that she accidentally cut herself with a kitchen knife. She states she went into the kitchen, she found that for some reason the knife was on the floor, she picked the knife up using her left hand, she states her daughter came running along and she moves the knife out of the way and accidentally jabbed herself with in her right forearm. Patient is right-handed. Patient states her tetanus is up-to-date within 5 years. She denies any other injuries. TRAVEL OUTSIDE OF THE [place] IN LAST 30 DAYS: No - Related Data Allergies/Adverse Reactions: No Known Allergies Allergy (Verified 07/23/18 09:56) Past Medical History - General Information source: Patient - Social History Smoking Status: Never Smoker Frequency of alcohol use: None Drug Abuse: None Lives with: Family Family History: Reviewed & Not Pertinent - No history of breast problems in the family, Arthritis, CAD, CVA, DM, Hypertension Patient has suicidal ideation: No Patient has homicidal ideation: No Pulmonary Medical History: Reports: Hx Asthma Endocrine Medical History: Reports: Hx Diabetes Mellitus Type 2 - gestational Renal/ Medical History: Denies: Hx Peritoneal Dialysis Skin Medical History: Reports Hx Cellulitis Past Surgical History: Reports: Other - Buttocks abscess drainage in the remote past - Immunizations Immunizations up to date: Yes Hx Diphtheria, Pertussis, Tetanus Vaccination: Yes Review of Systems - Review of Systems Constitutional: No symptoms reported EENT: No symptoms reported Cardiovascular: No symptoms reported Respiratory: No symptoms reported Gastrointestinal: No symptoms reported Genitourinary: No symptoms reported Female Genitourinary: No symptoms reported Musculoskeletal: See HPI Skin: See HPI Hematologic/Lymphatic: No symptoms reported Neurological/Psychological: No symptoms reported Physical Exam - Vital signs Vitals: Temp Pulse Resp BP Pulse Ox 98.1 F 105 H 16 121/69 97 02/01/19 01:53 02/01/19 01:53 02/01/19 01:53 02/01/19 01:53 02/01/19 01:53 - Notes Notes: GENERAL: Alert, interacts well. No acute distress. HEAD: Normocephalic, atraumatic. EYES: Pupils equal, round, and reactive to light. Extraocular movements intact. ENT: Oral mucosa moist, tongue midline. Oropharynx unremarkable. Airway patent. NECK: Full range of motion. Supple. Trachea midline. LUNGS: Clear to auscultation bilaterally, no wheezes, rales, or rhonchi. No respiratory distress. HEART: Regular rate and rhythm. No murmur ABDOMEN: Soft, non-tender. Non-distended. EXTREMITIES: Right forearm approximately over the flexural surface there is a 2.5 cm irregular partial-thickness laceration noted. Range of motion of the elbow intact, normal wrist, hand exam, normal distal neurovascular exam, normal graphic specialist strength. Unremarkable exam otherwise. BACK: no cervical, thoracic, lumbar midline tenderness. No saddle anesthesia, normal distal neurovascular exam. NEUROLOGICAL: Alert and oriented x3. Normal speech. Cranial nerves II through XII grossly intact. PSYCH: Normal affect, normal mood. SKIN: Warm, dry, normal turgor. No rashes or lesions noted. Course - Re-evaluation Re-evalutation: Patient story is slightly odd but her wound is consistent with her description. She is pleasant, makes good eye contact, is well-appearing. She denies depression, denies self-harm, states this was an accident. Patient does not have any suspicious behaviors suggesting otherwise. Wound repaired after thorough cleansing. Discussed wound care, follow-up, return precautions. Patient is going home with her friend. Stable time of discharge. - Vital Signs Vital signs: Temp Pulse Resp BP Pulse Ox 98 F 96 18 120/67 98 02/01/19 06:20 02/01/19 06:20 02/01/19 06:20 02/01/19 06:20 02/01/19 06:20 Procedures - Laceration/Wound Repair Right proximal forearm Wound length (cm): 2.5 Wound's Depth, Shape: Irregular Laceration pre-procedure: Sterile PPE donned, Sterile drapes applied, Shur-Clens applied Anesthetic type: 1% Lidocaine w/epi Volume Anesthetic (mLs): 5 Wound explored: Clean, No foreign body removed Irrigated w/ Saline (mLs): 70 Wound Repaired With: Sutures Suture Size/Type: 4:0, Nylon Layer Closure?: No Post-procedure wound care: Sterile dressing applied Post-procedure NV exam normal: Yes Complications: No Discharge - Discharge Clinical Impression: Laceration of right forearm Qualifiers: Encounter type: initial encounter Qualified Code(s): S51.811A - Laceration without foreign body of right forearm, initial encounter Condition: Stable Disposition: HOME, SELF-CARE Additional Instructions: The sutures need to be removed in 7 to 10 days. Keep clean, clean with soap and water, dab dry, avoid soaking or scrubbing. You can keep a thin film of topical antibiotic over the area. Follow-up with primary care. Come back for any signs of infection including swelling, redness, discolored drainage, fever, or any other concerning or worsening symptoms. Forms: Return to Work
[2019-02-01 06:20] VITALS: BP 120/67
== END 2019-02-01 06:19 | disposition home or self-care (01) ==
LOC: ER 01:40
DX: S51.811A Laceration without foreign body of right forearm, initial encounter (principal); W26.0XXA Contact with knife, initial encounter; Y93.89 Activity, other specified
CPT/HCPCS: 99282; 12001; J3490

== ENCOUNTER 2019-02-14 12:36 | Emergency (ER) | payer MEDICAID ==
[2019-02-14] MEDS ORDERED: DIPHENHYDRAMINE HCL 25 MG CAPSULE PO ONE (13:11)
--- NOTE | 2019-02-14 13:13 | ER Document Report ---
ED Medical Screen (RME) - General Chief Complaint: Headache Stated Complaint: LOW RIGHT ABDOMINAL PAIN,HEADACHE Time Seen by Provider: 02/14/19 13:06 Mode of Arrival: Ambulatory Information source: Patient Notes: This 23-year-old female with last menstrual period January 01 G2, P1 presents emergency department with complaints of a headache and right lower quad\right side abdominal pain for the past week that comes and goes. Patient has taken Tylenol without relief of symptoms. Denies other symptoms such as fever vomiting diarrhea, denies pain with void. Denies vaginal discharge denies vaginal bleeding. I have greeted and performed a rapid initial assessment of this patient. A comprehensive ED assessment and evaluation of the patient, analysis of test results and completion of the medical decision making process will be conducted by additional ED providers. Dictation of this chart was performed using voice recognition software; therefore, there may be some unintended grammatical errors. TRAVEL OUTSIDE OF THE [place] IN LAST 30 DAYS: No - Related Data Allergies/Adverse Reactions: No Known Allergies Allergy (Verified 02/14/19 12:38) Past Medical History - Social History Frequency of alcohol use: None Drug Abuse: None Pulmonary Medical History: Reports: Hx Asthma Endocrine Medical History: Reports: Hx Diabetes Mellitus Type 2 - gestational Renal/ Medical History: Denies: Hx Peritoneal Dialysis Skin Medical History: Reports Hx Cellulitis Past Surgical History: Reports: Other - Buttocks abscess drainage in the remote past - Immunizations Immunizations up to date: Yes Hx Diphtheria, Pertussis, Tetanus Vaccination: Yes History of Influenza Vaccine for 02/2017 - 07/2017 Season: Yes Physical Exam - Vital signs Vitals: Temp Pulse Resp BP Pulse Ox 98.1 F 62 14 115/50 L 99 02/14/19 12:47 02/14/19 12:47 02/14/19 12:47 02/14/19 12:47 02/14/19 12:47 Course - Vital Signs Vital signs: Temp Pulse Resp BP Pulse Ox 98.1 F 62 14 115/50 L 99 02/14/19 12:47 02/14/19 12:47 02/14/19 12:47 02/14/19 12:47 02/14/19 12:47
[2019-02-14 14:02] LABS: APPEARANCE,URINE SLIGHTLY-CLOUDY; BILIRUBIN,URINE NEGATIVE (NEGATIVE); COLOR,URINE YELLOW; GLUCOSE, URINE NEGATIVE (NEGATIVE); KETONES,URINE NEGATIVE (NEGATIVE); LEUKOCYTE ESTERASE,URINE LARGE (NEGATIVE); NITRITE,URINE NEGATIVE (NEGATIVE); PROTEIN,URINE NEGATIVE (NEGATIVE); URINE SPECIFIC GRAVITY 1.011; UROBILINOGEN,URINE NEGATIVE mg/dL (<2.0)
[2019-02-14 14:04] LABS: ABSOLUTE EOSINOPHILS # (AUTO) 0.2 10^3/uL (0.0-0.6); ABSOLUTE LYMPHOCYTES (AUTO) 3.4 10^3/uL (0.5-4.7); ABSOLUTE MONOCYTES (AUTO) 0.5 10^3/uL (0.1-1.4); ABSOLUTE NEUT (AUTO) 6.2 10^3/uL (1.7-8.2); BASOPHILS % (AUTO) 0.4 % (0-2); EOSINOPHILS % (AUTO) 1.8 % (0-6); HEMATOCRIT 40.8 % (36.0-47.0); HEMOGLOBIN 13.9 g/dL (12.0-15.5); LYMPHOCYTES % (AUTO) 32.8 % (13-45); MEAN CORPUSCULAR HEMOGLOBIN 29.6 pg (27.0-33.4); MEAN CORPUSCULAR VOLUME 87 fl (80-97); MONOCYTES % (AUTO) 4.9 % (3-13); PLATELET COUNT 163 10^3/uL (150-450); RED BLOOD COUNT 4.69 10^6/uL (3.72-5.28); RED CELL DISTRIBUTION WIDTH 12.9 % (11.5-14.0); SEGMENTED NEUTROPHILS % (AUTO) 60.1 % (42-78); TOTAL CELLS COUNTED % (AUTO) 100 %; WHITE BLOOD COUNT 10.3 10^3/uL (4.0-10.5)
[2019-02-14 14:22] LABS: ALKALINE PHOSPHATASE 50 U/L (38-126); ANION GAP 12 (5-19); ASPARTATE AMINO TRANSFERASE 15 U/L (14-36); BILIRUBIN,DIRECT 0.1 mg/dL (0.0-0.4); BILIRUBIN,TOTAL 0.3 mg/dL (0.2-1.3); BLOOD UREA NITROGEN 7 mg/dL (7-20); CALCIUM 9.7 mg/dL (8.4-10.2); CARBON DIOXIDE 22 mmol/L (22-30); CHLORIDE 102 mmol/L (98-107); GLUCOSE 80 mg/dL (75-110); POTASSIUM 4.2 mmol/L (3.6-5.0); TOTAL PROTEIN 6.7 g/dL (6.3-8.2)
--- NOTE | 2019-02-14 14:48 | RADIOLOGY REPORT (SQ) ---
EXAM DESCRIPTION: U/S OB TRANSVAGINAL W/O DOP COMPLETED DATE/TIME: 02/14/2019 2:31 pm REASON FOR STUDY: right side pain, COMPARISON: 06/23/2016 TECHNIQUE: Transvaginal static and realtime grayscale images acquired of the pelvis. Additional blake cted spectral and color Doppler images recorded. All images stored on PACs. bHCG: Pending CLINICAL DATES: 6 weeks, 2 days LIMITATIONS: None. FINDINGS: FETUS: Single Living intrauterine . ULTRASOUND EGA: 6 weeks, 3 days ULTRASOUND MAGGI: 10/07/2019 EFW: Not applicable less than 20 weeks. CRL: 0.6 cm FHR: 119 beats per minute. SURVEY: Too early to assess. AMNIOTIC FLUID: Adequate amount. PLACENTA: Not yet developed due to early gestation. SUBCHORIONIC BLEED: No. SIZE OF BLEED: Not applicable. UTERUS: No masses. No anomalies. CERVICAL LENGTH: 2.8 Closed. RIGHT ADNEXA: The ovary is expanded by 3.4 x 2.8 x 3.2 cm predominantly cystic structure demonstratin g lacy internal echogenic reflectors, consistent with an hemorrhagic cyst. Color Doppler interrogati on demonstrates normal arterial and venous waveforms. No adnexal free fluid. No adnexal masses. LEFT ADNEXA: Normal ovary with normal vascular flow. No adnexal free fluid. No adnexal masses. FREE FLUID: None. OTHER: No other significant finding. IMPRESSION: LIVING INTRAUTERINE . EGA 6 weeks, 3 days A 3.4 cm hemorrhagic cyst is seen within the right ovary. No follow-up imaging is recommended. Trimester of : First trimester - 0 to 13 weeks. TECHNICAL DOCUMENTATION: JOB ID: [id number] [employer]- All Rights Reserved rev-10/12 Reading location - IP/workstation name: [email or web address]
--- NOTE | 2019-02-14 14:51 | ER Document Report ---
ED General - General Chief Complaint: Headache Stated Complaint: LOW RIGHT ABDOMINAL PAIN,HEADACHE Time Seen by Provider: 02/14/19 13:06 Mode of Arrival: Ambulatory Information source: Patient TRAVEL OUTSIDE OF THE [place] IN LAST 30 DAYS: No - HPI Patient complains to provider of: abdominal pain Onset: Other - Pt . is G2,P1 LNMP 01/01/19 with c/o intermittent MORRIS and R-sided abd. pain for the past week. She has taken Tylenol with minimal relief. Denies vaginal bleeding - Related Data Allergies/Adverse Reactions: No Known Allergies Allergy (Verified 02/14/19 12:38) Past Medical History - General Information source: Patient - Social History Smoking Status: Former Smoker Frequency of alcohol use: None Drug Abuse: None Family History: Reviewed & Not Pertinent - No history of breast problems in the family, Arthritis, CAD, CVA, DM, Hypertension Patient has suicidal ideation: No Patient has homicidal ideation: No Pulmonary Medical History: Reports: Hx Asthma Endocrine Medical History: Reports: Hx Diabetes Mellitus Type 2 - gestational Renal/ Medical History: Denies: Hx Peritoneal Dialysis Skin Medical History: Reports Hx Cellulitis Past Surgical History: Reports: Other - Buttocks abscess drainage in the remote past - Immunizations Immunizations up to date: Yes Hx Diphtheria, Pertussis, Tetanus Vaccination: Yes Review of Systems - Review of Systems Constitutional: No symptoms reported EENT: No symptoms reported Cardiovascular: No symptoms reported Respiratory: No symptoms reported Gastrointestinal: See HPI, Abdominal pain Musculoskeletal: No symptoms reported Neurological/Psychological: No symptoms reported, Headaches -: Yes All other systems reviewed and negative Physical Exam - Vital signs Vitals: Temp Pulse Resp BP Pulse Ox 98.1 F 62 14 115/50 L 99 02/14/19 12:47 02/14/19 12:47 02/14/19 12:47 02/14/19 12:47 02/14/19 12:47 - General General appearance: Appears well In distress: None - HEENT Pupils: PERRL Pharynx: Normal Neck: Normal - Respiratory Respiratory status: No respiratory distress Breath sounds: Normal - Cardiovascular Rhythm: Regular Heart sounds: Normal auscultation Murmur: No - Abdominal Inspection: Normal Distension: No distension Bowel sounds: Normal Tenderness: Tender - Min TTP RUQ and RLQ diffusely without peritoneal signs - Extremities General upper extremity: Normal inspection General lower extremity: Normal inspection - Neurological Neuro grossly intact: Yes Cognition: Normal Orientation: AAOx4 Speech: Normal Cranial nerves: Normal Course - Re-evaluation Re-evalutation: 02/14/19 15:02 pt's exam unchanged - expressed desire to go home. Will have her call OB group first thing Sunday morning. - Vital Signs Vital signs: Temp Pulse Resp BP Pulse Ox 98.1 F 62 14 115/50 L 99 02/14/19 12:47 02/14/19 12:47 02/14/19 12:47 02/14/19 12:47 02/14/19 12:47 - Laboratory Result Diagrams: 02/14/19 13:31 02/14/19 13:31 Laboratory results interpreted by me: 02/14/19 02/14/19 13:31 13:31 Sodium 135.8 L Urine Blood SMALL H Ur Leukocyte Esterase LARGE H - Diagnostic Test Radiology reviewed: Reports reviewed - single IUP, 6 weeks HR- 119. Plus R ovarian cyst Discharge - Discharge Clinical Impression: Ovarian cyst affecting in first trimester, antepartum Cephalgia Qualifiers: Headache type: other headache syndrome Qualified Code(s): G44.89 - Other headache syndrome Condition: Stable Disposition: HOME, SELF-CARE Instructions: Headache ([facility]) Additional Instructions: rest, tylenol for pain, return if worse Referrals: RADHA VEGA MD [ACTIVE STAFF] - Follow up as needed
[2019-02-14 15:18] VITALS: BP 118/63
== END 2019-02-14 15:14 | disposition home or self-care (01) ==
LOC: ER 12:36
DX: O34.81 Maternal care for other abnormalities of pelvic organs, first trimester (principal); N83.201 Unspecified ovarian cyst, right side; O99.351 Diseases of the nervous system complicating pregnancy, first trimester; G44.89 Other headache syndrome; O26.891 Other specified pregnancy related conditions, first trimester; R10.9 Unspecified abdominal pain; O99.511 Diseases of the respiratory system complicating pregnancy, first trimester; J45.909 Unspecified asthma, uncomplicated; O24.419 Gestational diabetes mellitus in pregnancy, unspecified control; Z3A.01 Less than 8 weeks gestation of pregnancy; Z87.891 Personal history of nicotine dependence
CPT/HCPCS: 36415; 87086; 84702; 85025; 80053; 81001; 76817; J3490; 99284

== ENCOUNTER 2019-05-25 12:39 | Emergency (ER) | payer MEDICAID ==
--- NOTE | 2019-05-25 13:25 | ER Document Report ---
ED Medical Screen (RME) - General Chief Complaint: Breast Lump Stated Complaint: POSSIBLE CYST ON BREAST Time Seen by Provider: 05/25/19 13:20 Mode of Arrival: Ambulatory Information source: Patient Notes: 23-year-old female presents emergency department with complaints of possible abscess to her left breast. She reports she had a right breast abscess a year ago and had to go to surgery have it drained. She reports this feels like the same thing and it started yesterday. She denies other symptoms such as fever vomiting diarrhea. She denies history of MRSA. I have greeted and performed a rapid initial assessment of this patient. A comprehensive ED assessment and evaluation of the patient, analysis of test results and completion of the medical decision making process will be conducted by additional ED providers. TRAVEL OUTSIDE OF THE [place] IN LAST 30 DAYS: No - Related Data Allergies/Adverse Reactions: No Known Allergies Allergy (Verified 05/25/19 13:18) Home Medications: viatmins Past Medical History - Social History Chew tobacco use (# tins/day): No Frequency of alcohol use: None Drug Abuse: None Pulmonary Medical History: Reports: Hx Asthma Endocrine Medical History: Reports: Hx Diabetes Mellitus Type 2 - gestational Renal/ Medical History: Denies: Hx Peritoneal Dialysis Skin Medical History: Reports Hx Cellulitis Past Surgical History: Reports: Other - Buttocks abscess drainage in the remote past - Immunizations Immunizations up to date: Yes Hx Diphtheria, Pertussis, Tetanus Vaccination: Yes Physical Exam - Vital signs Vitals: Temp Pulse Resp BP Pulse Ox 98.8 F 94 18 108/54 L 99 05/25/19 13:10 05/25/19 13:10 05/25/19 13:10 05/25/19 13:10 05/25/19 13:10 Course - Vital Signs Vital signs: Temp Pulse Resp BP Pulse Ox 98.8 F 94 18 108/54 L 99 05/25/19 13:10 05/25/19 13:10 05/25/19 13:10 05/25/19 13:10 05/25/19 13:10
--- NOTE | 2019-05-25 14:10 | ER Document Report ---
ED Skin Rash/Insect Bite/Abscs - General Chief Complaint: Cyst Stated Complaint: POSSIBLE CYST ON BREAST Time Seen by Provider: 05/25/19 13:20 Primary Care Provider: [facility] [Provider Group] - 06/09/19 TWIN DYSON MD [Primary Care Provider] - Follow up as needed Mode of Arrival: Ambulatory Notes: Patient is a 23-year-old 19 weeks female who presents to the emergency department with a chief complaint of left breast pain. Her pain is specifically at 12:00 at her areola. Patient has history of breast abscess in the past. She has had it surgically removed. She noticed that she started having breast tenderness yesterday and has progressively gotten worse over time. Patient is also . TRAVEL OUTSIDE OF THE [place] IN LAST 30 DAYS: No - Related Data Allergies/Adverse Reactions: No Known Allergies Allergy (Verified 05/25/19 13:18) Home Medications: viatmins Past Medical History - General Information source: Patient - Social History Smoking Status: Never Smoker Chew tobacco use (# tins/day): No Frequency of alcohol use: None Drug Abuse: None Family History: Reviewed & Not Pertinent - No history of breast problems in the family, Arthritis, CAD, CVA, DM, Hypertension Patient has suicidal ideation: No Patient has homicidal ideation: No Pulmonary Medical History: Reports: Hx Asthma Endocrine Medical History: Reports: Hx Diabetes Mellitus Type 2 - gestational Renal/ Medical History: Denies: Hx Peritoneal Dialysis Skin Medical History: Reports Hx Cellulitis Past Surgical History: Reports: Other - Buttocks abscess drainage in the remote past - Immunizations Immunizations up to date: Yes Hx Diphtheria, Pertussis, Tetanus Vaccination: Yes Review of Systems - Review of Systems Notes: REVIEW OF SYSTEMS: CONSTITUTIONAL : Denies recent illness. Denies recent unintentional weight loss. Denies fever, chills, or sweats. EENT: Denies eye, ear, throat, or mouth pain, discharge, or symptoms. Denies nasal or sinus congestion. CARDIOVASCULAR: Denies chest pain. RESPIRATORY: Denies shortness of breath, cough, congestion, difficulty breathing, or wheezing. GASTROINTESTINAL: Denies nausea, vomiting, and diarrhea. Denies abdominal pain. Denies constipation. GENITOURINARY: Denies difficulty urinating, burning, blood in urine, urgency or frequency. MUSCULOSKELETAL: Denies neck and back pain. Denies joint pain or swelling. SKIN: Denies rash, itchiness, or lesions HEMATOLOGIC : Denies easy bruising or bleeding. LYMPHATIC: Denies swollen, painful, enlarged glands. NEUROLOGICAL: Denies no numbness or tingling denies weakness. Denies headache. Denies altered mental status. Denies alteration in speech. PSYCHIATRIC: Denies stress, anxiety, alteration in sleep patterns, or depression. BREAST: See HPI. All other systems reviewed and negative. Physical Exam - Vital signs Vitals: Temp Pulse Resp BP Pulse Ox 98.8 F 94 18 108/54 L 99 05/25/19 13:10 05/25/19 13:10 05/25/19 13:10 05/25/19 13:10 05/25/19 13:10 - Notes Notes: PHYSICAL EXAMINATION: GENERAL: Appears well, healthy, well-nourished, no acute distress. HEAD: Normocephalic, atraumatic. EYES: PERRL, conjunctiva normal, all extraocular movements intact, sclera nonicteric ENT: Moist mucous membranes. NECK: Supple, no noticeable swelling, redness, rash. Normal range of motion. LUNGS: Equal breath sounds bilaterally and clear to auscultation. No wheezes rales or rhonchi. CARDIOVASCULAR: S1-S2, regular rate, regular rhythm. Radial pulses 2+, normal. ABDOMEN: Normoactive bowel sounds. Soft, nontender, no guarding, no rebound tenderness, and no masses palpated. EXTREMITIES: Normal strength and range of motion, no pitting or edema. No cyanosis. NEUROLOGICAL: Moves all extremities upon command. Strength 5/5 in all extremities. PSYCH: Normal mood, normal affect. SKIN: Warm, dry. No rash, lesions, ulcerations noted. Normal skin turgor. BREAST: Fluctuant and tender area to 12 o'clock position on left areola. Course - Re-evaluation Re-evalutation: 05/25/19 15:[address] Joseph. Discussed ultrasound results with him. He will come see the patient. 05/25/19 16:15 Dr. Joseph was at bedside and he did an I&D of the patient's left breast abscess. He collected a wound culture and took a sample of the breast to send for cytology. Patient will be started on Keflex, as the patient is and I explained to the patient that when cultures come back, she will be placed on additional antibiotics if needed. She will follow-up here in the emergency department in 2 to 3 days. She will also follow-up with surgery in the outpatient clinic in 2 weeks. Follow-up precautions were given. Verbal discharge instructions were given to the patient. They verbalized understanding. They are stable for discharge. - Vital Signs Vital signs: Temp Pulse Resp BP Pulse Ox 98.6 F 96 20 126/41 H 99 05/25/19 16:31 05/25/19 16:31 05/25/19 16:31 05/25/19 16:31 05/25/19 16:31 Discharge - Discharge Clinical Impression: Left breast abscess Condition: Stable Disposition: HOME, SELF-CARE Instructions: Cephalexin ([facility]) Additional Instructions: You were seen today in the emergency department for a left breast abscess. You are being placed on antibiotics. Please take all your antibiotics as prescribed. The abscess was drained here in the emergency department by the rahul goodwin. Please pack the wound twice a day starting tomorrow morning. First remove the packing, shower, and then apply triple antibiotic ointment to the wound and then packed the wound with 4 x 4 dressing using a Q-tip. Cover the area with a dry gauze and tape. Please follow-up for a wound recheck in 2 days here in the emergency department. Please follow-up with surgery in 2 weeks, if not earlier. Prescriptions: Cephalexin Monohydrate [Keflex 500 mg Capsule] 500 mg PO Q6H 7 Days #28 capsule Referrals: TWIN DYSON MD [Primary Care Provider] - Follow up as needed [facility] [Provider Group] - 06/09/19
--- NOTE | 2019-05-25 15:04 | RADIOLOGY REPORT (SQ) ---
EXAM DESCRIPTION: U/S BREAST UNILATERAL LIMITED COMPLETED DATE/TIME: 05/25/2019 2:43 pm REASON FOR STUDY: possible abcess? COMPARISON: None. TECHNIQUE: Real-time and static grayscale imaging performed of the left breast targeted to the area of clinical/mammographic concern. Selected color Doppler images recorded. LIMITATIONS: None. FINDINGS: MASS: Deep to the nipple in the region of clinical concern, there is an ovoid well-circums cribed heterogeneously hypoechoic mass which measures 3.8 x 2.5 x 4.0 cm. Per technologist, palpable . Regional air erythema and tenderness with nipple and areolar thickening. Paucity of vascular flow within the lesion, possibly artifact. OTHER: No other significant finding. IMPRESSION: 1. Mass in the region of interest. While this looks more like a solid mass than drainable fluid, giv en the history of relatively abrupt appearance and clinical presentation, this is likely a complicate d debris containing abscess. BIRAD: 4 Suspicious. Biopsy should be performed in the absence of clinical contra-indication. RECOMMENDATION: RECOMMENDED FOLLOW-UP: Surgical consultation for attempted aspiration or biopsy. COMMENT: The [employer] (ACR) has developed recommendations for screening MRI of the breasts in certain patient populations, to be used in conjunction with mammography. Breast MRI s urveillance may be appropriate for women with more than 20% lifetime risk of developing breast cancer as determined by genetic testing, significant family history of the disease, or history of mantle r adiation for Hodgkins Disease. ACR Practice Guidelines 2008. TECHNICAL DOCUMENTATION: JOB ID: [id number] [employer]- All Rights Reserved Reading location - IP/workstation name: [email or web address]
[2019-05-25] MEDS ORDERED: NORMAL SALINE 1000 ML 1,000 ML IV ONE (15:22)
[2019-05-25] MEDS ORDERED: PIPERACILLIN/TAZOBACTAM 3.375 GM VIAL IV ONE (15:22)
[2019-05-25] MEDS ORDERED: LIDOCAINE 1% INJ (10 MG/ML) 10 ML MDV ONE (15:31)
[2019-05-25] MEDS ORDERED: LIDOCAINE 1% INJ-PF (10 MG/ML) 30 ML SDV ONE (15:31)
[2019-05-25] MEDS ORDERED: LIDOCAINE 1% INJ-PF (10 MG/ML) 30 ML SDV INJ ONE (15:33)
--- NOTE | 2019-05-25 15:46 | PDOC H&P ---
History of Present Illness Admission Date/PCP: TWIN DYSON MD Patient complains of: Left breast pain, with redness and swelling History of Present Illness: ROCÍO LEWIS is a 23 year old female, healthy, 19-week , with a complain over the left breast painful nodule located at about 12:00 by the nipple-areolar complex. This is the first time the patient has such a lesion. Ultrasound of the left breast has been done which is significant for possibly an abscess containing debris is. However, the radiologist recommends tissue biopsy because of the unusual appearance of the lesion on ultrasound. Past Medical History Pulmonary Medical History: Reports: Asthma Endocrine Medical History: Reports: Diabetes Mellitus Type 2 - gestational Past Surgical History Past Surgical History: Reports: Other - Buttocks abscess drainage in the remote past Social History Smoking Status: Never Smoker Electronic Cigarette use?: No Frequency of Alcohol Use: Social Hx Recreational Drug Use: No Hx Prescription Drug Abuse: No Family History Family History: Reviewed & Not Pertinent - No history of breast problems in the family, Arthritis, CAD, CVA, DM, Hypertension Parental Family History Reviewed: Yes - See above Children Family History Reviewed: No Sibling(s) Family History Reviewed.: No Medication/Allergy Home Medications: Cephalexin Monohydrate [Keflex 500 mg Capsule] 500 mg PO QID 07/24/18 Ketorolac Tromethamine [Toradol 10 mg Tablet] 10 mg PO Q6 PRN 07/24/18 Allergies/Adverse Reactions: No Known Allergies Allergy (Verified 05/25/19 13:18) Physical Exam Vital Signs: Temp Pulse Resp BP Pulse Ox 98.8 F 94 18 108/54 L 99 05/25/19 13:10 05/25/19 13:10 05/25/19 13:10 05/25/19 13:10 05/25/19 13:10 Intake & Output 05/24/19 05/25/19 05/26/19 06:59 06:59 06:59 Weight 97 kg General appearance: PRESENT: no acute distress, obese Breast: PRESENT: Tenderness - Left nipple areolar complex, Mass/Lump - Left breast nipple areolar complex associated with erythema of the skin and edema GI/Abdominal exam: PRESENT: normal bowel sounds, soft Rectal exam: PRESENT: deferred Extremities exam: PRESENT: full ROM Musculoskeletal exam: PRESENT: full ROM Results Impressions: Breast Ultrasound 05/25/19 14:15 IMPRESSION: 1. Mass in the region of interest. While this looks more like a solid mass than drainable fluid, given the history of relatively abrupt appearance and clinical presentation, this is likely a complicated debris containing abscess. Assessment & Plan - Diagnosis (1) Left breast abscess Is this a current diagnosis for this admission?: Yes - Plan Summary Plan Summary: Assessment: Left breast nipple areolar complex abscess located about 12:00 Erythema with edema and palpable lump located in the area Ultrasound of the area of interest reveals a complex nodule, most likely abscess with debris's. However, the radiologist recommends tissue biopsy of the site Plan: Incision and drainage of the left breast nipple areolar complex abscess under local anesthetic in the emergency room today Discharge the patient to home on oral antibiotics Pack the wound bed twice a day starting tomorrow morning; in the morning and in the evening remove packing first, shower, apply triple antibiotic ointment to the wound bed followed by packing the wound bed with a small 4 x 4 using a Q- tiip; cover area with 4 x 4 dry gauzes and tape. Follow-up with the surgery office in 2 weeks or sooner if symptoms do not simin
--- NOTE | 2019-05-25 16:28 | Operative Report ---
Operative Report DATE OF SURGERY: 05/25/19 PREOPERATIVE DIAGNOSIS: Left breast nipple areolar complex abscess POSTOPERATIVE DIAGNOSIS: Same OPERATION: Excisional drainage of left breast nipple area complex abscess SURGEON: ALLI FREIRE ANESTHESIA: Other - 40 mL 1% lidocaine without epinephrine TISSUE REMOVED OR ALTERED: Left breast tissue sent for pathology; left breast tissue culture for aerobic anaerobic and Gram stain COMPLICATIONS: None ESTIMATED BLOOD LOSS: Less than 10 mL INTRAOPERATIVE FINDINGS: Left breast nipple areolar complex induration with central cavitation measuring about 4 cm in diameter PROCEDURE: The procedure was done in the emergency room, the patient was placed in a supine position, the area of the abscess was prepped and draped in usual fashion. Following injection of the area with lidocaine 1% without epinephrine as above, the proposed line of incision was outlined with a surgical marker, a skin incision was then made with a #15 blade, and a moderate amount of pus was obtained. This was sent for aerobic anaerobic culture and Gram stain. Additio n, a sample of breast tissue was obtained and sent to pathology. The incision was then extended further. After this, the abscess cavity was irrigated with 50 mL of warm normal saline. Local bleeders were controlled by pressure. The abscess cavity was filled with bacitracin antibiotic and packed with the corner over sterile 4 x 4 gauze, covered with dry 4 x 4's, and tape were applied. The patient tolerated procedure well and discharged to home in satisfactory conditions. The patient was given instructions to perform dressing changes in 48 hours, take a shower by covering the abscess site, blot dry the left breast skin, fill the left breast abscess cavity with topical Polysporin antibiotic, pack the cavity with the corner of a 4 x 4, cover with dry 4 x 4's gauze, and apply tape. The patient should be taking prescribed antibiotic, call the emergency room within 72 hours to check on the status of the cultures for possible MRSA, and return to the emergency room for wound check within 2 weeks.
[2019-05-25 16:31] VITALS: BP 126/41
== END 2019-05-25 16:38 | disposition home or self-care (01) ==
LOC: ER 12:39
DX: N61.1 Abscess of the breast and nipple (principal); N64.4 Mastodynia
CPT/HCPCS: 99284; 87070; 87205; 87075; 88304 ×2; 88342; 76642; 10061; J3490; 88305

== ENCOUNTER 2019-05-29 11:45 | Emergency (ER) | payer MEDICAID ==
[2019-05-29 12:14] VITALS: BP 107/39
--- NOTE | 2019-05-29 12:36 | ER Document Report ---
ED Medical Screen (RME) - General Chief Complaint: Breast Problem Stated Complaint: BREAST PAIN Time Seen by Provider: 05/29/19 12:30 Primary Care Provider: TWIN DYSON MD [Primary Care Provider] - Follow up as needed Notes: 23-year-old female presents the emergency department for a concern for left breast abscess. She was seen here on 05/25 and a bedside I&D was performed by the surgical list. Patient states that she has developed a new abscess and it is acutely painful to light touch. No fevers or chills, no nausea vomiting, no urinary symptoms. Exam: Kaci Santa RN, in room for exam. There is a large area of induration deep to the left nipple that is acutely tender to light palpation I have greeted and performed a rapid initial assessment of this patient. A comprehensive ED assessment and evaluation of the patient, analysis of test results and completion of medical decision making process will be conducted by an additional ED providers. TRAVEL OUTSIDE OF THE [place] IN LAST 30 DAYS: No - Related Data Allergies/Adverse Reactions: No Known Allergies Allergy (Verified 05/29/19 12:27) Past Medical History Pulmonary Medical History: Reports: Hx Asthma Endocrine Medical History: Reports: Hx Diabetes Mellitus Type 2 - gestational Renal/ Medical History: Denies: Hx Peritoneal Dialysis Skin Medical History: Reports Hx Cellulitis Past Surgical History: Reports: Other - Buttocks abscess drainage in the remote past - Immunizations Immunizations up to date: Yes Hx Diphtheria, Pertussis, Tetanus Vaccination: Yes Physical Exam - Vital signs Vitals: Temp Pulse Resp BP Pulse Ox 95.7 F L 84 16 107/39 L 99 05/29/19 12:13 05/29/19 12:13 05/29/19 12:13 05/29/19 12:13 05/29/19 12:13 Course - Vital Signs Vital signs: Temp Pulse Resp BP Pulse Ox 95.7 F L 84 16 107/39 L 99 05/29/19 12:13 05/29/19 12:13 05/29/19 12:13 05/29/19 12:13 05/29/19 12:13 Doctor's Discharge - Discharge Referrals: TWIN DYSON MD [Primary Care Provider] - Follow up as needed
--- NOTE | 2019-05-29 12:58 | ER Document Report ---
ED General - General Chief Complaint: Abscess Stated Complaint: BREAST PAIN Time Seen by Provider: 05/29/19 12:30 Primary Care Provider: TWIN YDSON MD [Primary Care Provider] - Follow up as needed Mode of Arrival: Ambulatory Information source: Patient TRAVEL OUTSIDE OF THE [place] IN LAST 30 DAYS: No - HPI Patient complains to provider of: Patient complains of left breast pain s/p I and D of abscess Onset: This morning - Patient had a operating room procedure of incise and drainage and biopsy of breast tissue of the left breast, On 05/25/2019. Culture and sensitivity and breast biopsy was done during the procedure. Patient tolerated procedure well and now comes to the emergency department because she was to change the dressing today and because of the pain noted and the swelling noted that she says has not gone away she comes to the emergency department for further evaluation. Denies any fever chills or drainage at this time. Patient does note that there is the same swelling that was there before. Severity: Severe Pain Level: 5 Similar symptoms previously: Yes - See ED visit 05/25/2019. Notes: Patient has a left breast abscess around the area Chana area. Patient was seen by the surgical list of the [facility] the day on 1229 Dr. Joseph. Patient was taken to the operating room and procedure was done with drainage incision and drainage of an abscess and tissue sample was also sent of breast tissue for further cytology. Patient returns today 2 days 3 days later with complaint of pain in the left breast. Patient states she was not given any medications to take for pain but is on antibiotics 4 times a day. She was to change the dressing today but felt as though she could not due to the pain. - Related Data Allergies/Adverse Reactions: No Known Allergies Allergy (Verified 05/29/19 12:27) Home Medications: Vitamins Past Medical History - Social History Smoking Status: Never Smoker Chew tobacco use (# tins/day): No Frequency of alcohol use: None Drug Abuse: None Family History: Reviewed & Not Pertinent - No history of breast problems in the family, Arthritis, CAD, CVA, DM, Hypertension Patient has suicidal ideation: No Patient has homicidal ideation: No Pulmonary Medical History: Reports: Hx Asthma Endocrine Medical History: Reports: Hx Diabetes Mellitus Type 2 - gestational Renal/ Medical History: Denies: Hx Peritoneal Dialysis Skin Medical History: Reports Hx Cellulitis Past Surgical History: Reports: Other - Buttocks abscess drainage in the remote past - Immunizations Immunizations up to date: Yes Hx Diphtheria, Pertussis, Tetanus Vaccination: Yes Review of Systems - Review of Systems Female Genitourinary: - Patient is 21 weeks at this time. Not showing any signs of distress of her with no vaginal bleeding discharge or pelvic pain., Other Skin: See HPI - Patient with dressing over recent incision and drainage site over the left breast noted in the medial upper quadrant. Patient notes that there is a firm soft tissue swelling just below the area Chana in the lateral lower quadrant. States she was unable to change the dressing because of pain therefore she comes to the emergency department., Other - Patient is status post drainage of left breast abscess. Physical Exam - Vital signs Vitals: Temp Pulse Resp BP Pulse Ox 95.7 F L 84 16 107/39 L 99 05/29/19 12:13 05/29/19 12:13 05/29/19 12:13 05/29/19 12:13 05/29/19 12:13 Interpretation: Normal - General General appearance: Appears well, Alert - HEENT Head: Normocephalic, Atraumatic Eyes: Normal Pupils: PERRL - Respiratory Respiratory status: No respiratory distress Chest status: Nontender Breath sounds: Normal Chest palpation: Normal - Cardiovascular Rhythm: Regular Heart sounds: Normal auscultation Murmur: No - Abdominal Inspection: Normal Distension: No distension Bowel sounds: Normal Tenderness: Nontender Organomegaly: No organomegaly Notes: Patient is 21 weeks without any signs of distress or at this time. Nontender abdomen gravid at 21 weeks. - Back Back: Normal, Nontender - Extremities General upper extremity: Normal inspection, Nontender, Normal color, Normal ROM, Normal temperature General lower extremity: Normal inspection, Nontender, Normal color, Normal ROM, Normal temperature, Normal weight bearing. No: Estefania's sign - Neurological Neuro grossly intact: Yes Cognition: Normal Orientation: AAOx4 [place] Coma Scale Eye Opening: Spontaneous [place] Coma Scale Verbal: Oriented [place] Coma Scale Motor: Obeys Commands [place] Coma Scale Total: 15 Speech: Normal Motor strength normal: LUE, RUE, LLE, RLE Sensory: Normal - Psychological Associated symptoms: Normal affect, Normal mood - Skin Skin Temperature: Warm Skin Moisture: Dry Skin Color: Normal Notes: Left breast with clean bandages and in place over the incise drain portal site on the medial upper quadrant of her breast. Rest of the breast tissue skin looks normal except there is an indurated area on the lateral lower quadrant. Patient states it is tender to palpation. I offered to change the dressing to take a look at the wound site and patient refused. She states that she would rather change the dressing at home by herself. Course - Re-evaluation Re-evalutation: 05/29/19 14:13 I reviewed the reports from the incised drainage and biopsy of breast tissue from 05/25/2019. Culture and sensitivity showed no anaerobic or aerobic culture positive. Breast tissue biopsy pathology disclose fibro-muscular tissue chronically inflamed without any signs of malignancy. These results were explained to the patient, who understood that she does not have any evidence of breast cancer at this time and that the infection did not disclose any particular bacteria causing this abscess. Patient is advised to continue her antibiotic coverage at this time until told otherwise. - Vital Signs Vital signs: Temp Pulse Resp BP Pulse Ox 95.7 F L 84 16 107/39 L 99 05/29/19 12:13 05/29/19 12:13 05/29/19 12:13 05/29/19 12:13 05/29/19 12:13 Discharge - Discharge Clinical Impression: Breast abscess during , antepartum Condition: Stable Disposition: HOME, SELF-CARE Additional Instructions: Abscess You have an abscess (boil). This a pus-forming infection, usually due to staph. Some boils may be left to drain on their own, but most require lancing. From the time the tender lump first appears, it may be three or four days before the abscess is ready to zackery. Local heat and rest help at this stage of treatment. An antibiotic may prevent spread of the infection. Once the abscess is opened, packing may be placed into it. This is done so pus is not sealed inside by premature closure of the cavity. The packing will be removed at your follow-up visit or you may be advised to remove it yourself at home. Sometimes this packing must be replaced a few times during healing. The wound will heal with surprisingly little scar. Depending on the size and location of an abscess, healing can take one to four weeks. You may shower and wash the area around the incision site two or three times a day. Antibiotics may be prescribed, but are usually not necessary after an abscess has been drained. If you develop fever, chilling, worsening pain, or increasing swelling in the area, call the doctor or return immediately. No new instructions to patient. Patient is to follow the instructions she received status post Dr. Joseph incised and drained the procedure done on 05/25/2019. Advised patient to change the dressing today and to take Tylenol as needed for pain. Continue her antibiotic coverage 4 times a day until completed. I also requested that patient follow-up with Dr. Joseph who performed the incision and drainage procedure. Referrals: TWIN DYSON MD [Primary Care Provider] - Follow up as needed
--- NOTE | 2019-05-29 13:43 | RADIOLOGY REPORT (SQ) ---
EXAM DESCRIPTION: U/S BREAST UNILATERAL LIMITED COMPLETED DATE/TIME: 05/29/2019 1:15 pm REASON FOR STUDY: Abscess deep to left nipple COMPARISON: 05/25/2019 TECHNIQUE: Static and Realtime grayscale interrogation of focal area(s) of concern in the left breas t(s) acquired. Selected color doppler/spectral images saved to PACS. LIMITATIONS: None. FINDINGS: There is a well-circumscribed subareolar lesion measuring 2.8 x 3.0 x 3.0 cm, previously 3 .8 x 2.5 x 4.0 cm. Essentially avascular. IMPRESSION: Slight decrease in size of solid mass which has reportedly been biopsied. BIRAD: 0 Incomplete: Need pathology results. RECOMMENDATION: RECOMMENDED FOLLOW-UP: Follow-up as clinically indicated. COMMENT: The [employer] (A[employer]) has developed recommendations for screening MRI of the breasts in certain patient populations, to be used in conjunction with mammography. Breast MRI s urveillance may be appropriate for women with more than 20% lifetime risk of developing breast cancer as determined by genetic testing, significant family history of the disease, or history of mantle r adiation for Hodgkins Disease. ACR Practice Guidelines 2008. TECHNICAL DOCUMENTATION: FINDING NUMBER: (1) ASSESSMENT: (1) JOB ID: [id number] [employer]- All Rights Reserved Reading location - IP/workstation name: [email or web address]
[2019-05-29] MEDS ORDERED: NORMAL SALINE 1000 ML 1,000 ML IV ONE (14:50)
== END 2019-05-29 15:00 | disposition home or self-care (01) ==
LOC: ER 11:45
DX: O91.112 Abscess of breast associated with pregnancy, second trimester (principal); O99.512 Diseases of the respiratory system complicating pregnancy, second trimester; J45.909 Unspecified asthma, uncomplicated; Z3A.21 21 weeks gestation of pregnancy
CPT/HCPCS: 76642; 99283

== ENCOUNTER 2019-05-29 22:46 | Emergency (ER) | payer MEDICAID ==
[2019-05-30] MEDS ORDERED: LIDOCAINE 1% INJ (10 MG/ML) 10 ML MDV ONE (07:01)
--- NOTE | 2019-05-30 07:25 | ER Document Report ---
ED General - General Chief Complaint: Wound Recheck Stated Complaint: WOUND RE CHECK Time Seen by Provider: 05/30/19 06:32 Primary Care Provider: TWIN DYSON MD [Primary Care Provider] - Follow up as needed Mode of Arrival: Ambulatory Information source: Patient Notes: 23-year-old female 22 weeks , according the patient, presented to ED for complaint of pain to her left breast status post I&D by the surgeon on 05/25/2019. She states she came in yesterday had an ultrasound but had to leave before she could get the results. She states she is unable to change her dressing due to the pain in her breast. She states she has had abscesses before had an I&D and they did not still feel like this breast does. She states the pain is still a level 5. I removed the dressing remove the packing and she does have a very firm area to the left breast under the areole and below the areole. I consulted the surgeon and he has come and looked at the breast and will repeat the I&D. TRAVEL OUTSIDE OF THE [place] IN LAST 30 DAYS: No - HPI Onset: Last week Onset/Duration: Persistent Quality of pain: Pressure, Sharp, Throbbing Severity: Severe Pain Level: 5 Associated symptoms: Other - Abscess left breast Exacerbated by: Movement Relieved by: Denies Similar symptoms previously: Yes Recently seen / treated by doctor: Yes - Related Data Allergies/Adverse Reactions: No Known Allergies Allergy (Verified 05/29/19 23:38) Past Medical History - General Information source: Patient - Social History Smoking Status: Former Smoker Frequency of alcohol use: None Drug Abuse: None Lives with: Family Family History: Reviewed & Not Pertinent - No history of breast problems in the family, Arthritis, CAD, CVA, DM, Hypertension Patient has suicidal ideation: No Patient has homicidal ideation: No - Past Medical History Cardiac Medical History: Reports: None Pulmonary Medical History: Reports: Hx Asthma EENT Medical History: Reports: None Neurological Medical History: Reports: None Endocrine Medical History: Reports: Hx Diabetes Mellitus Type 2 - gestational Renal/ Medical History: Reports: None Malignancy Medical History: Reports: None GI Medical History: Reports: None Musculoskeletal Medical History: Reports None Skin Medical History: Reports Hx Cellulitis Psychiatric Medical History: Reports: None Traumatic Medical History: Reports: None Infectious Medical History: Reports: None Past Surgical History: Reports: Other - Buttocks abscess drainage in the remote past, left breast I&D - Immunizations Immunizations up to date: Yes Hx Diphtheria, Pertussis, Tetanus Vaccination: Yes Review of Systems - Review of Systems Constitutional: No symptoms reported EENT: No symptoms reported Cardiovascular: No symptoms reported Respiratory: No symptoms reported Gastrointestinal: No symptoms reported Genitourinary: No symptoms reported Female Genitourinary: No symptoms reported Musculoskeletal: No symptoms reported Skin: Other - Large abscess to left breast areole area. She had this area just above I&D'd 05/25/2019 still painful and hard Hematologic/Lymphatic: No symptoms reported Neurological/Psychological: No symptoms reported -: Yes All other systems reviewed and negative Physical Exam - Vital signs Vitals: Temp Pulse Resp BP Pulse Ox 98.7 F 75 16 112/64 100 05/29/19 23:07 05/29/19 23:07 05/29/19 23:07 05/29/19 23:07 05/29/19 23:07 Interpretation: Normal, Hypertensive Notes: 132/72 after I&D completed - General General appearance: Appears well, Alert - HEENT Head: Normocephalic, Atraumatic Eyes: Normal Pupils: PERRL - Respiratory Respiratory status: No respiratory distress Chest status: Nontender Breath sounds: Normal Chest palpation: Normal - Cardiovascular Rhythm: Regular Heart sounds: Normal auscultation Murmur: No - Abdominal Inspection: Normal Distension: No distension Bowel sounds: Normal Tenderness: Nontender Organomegaly: No organomegaly - Back Back: Normal, Nontender - Extremities General upper extremity: Normal inspection, Nontender, Normal color, Normal ROM, Normal temperature General lower extremity: Normal inspection, Nontender, Normal color, Normal ROM, Normal temperature, Normal weight bearing. No: Estefania's sign - Neurological Neuro grossly intact: Yes Cognition: Normal Orientation: AAOx4 [place] Coma Scale Eye Opening: Spontaneous [place] Coma Scale Verbal: Oriented Kaiser Coma Scale Motor: Obeys Commands [place] Coma Scale Total: 15 Speech: Normal Motor strength normal: LUE, RUE, LLE, RLE Sensory: Normal - Psychological Associated symptoms: Normal affect, Normal mood - Skin Skin Temperature: Warm Skin Moisture: Dry Skin Color: Normal Skin irregularity: Abscess - Left breast areole. Open I&D wound from previous I&D just above the areole. Irregularity with: Swelling, Tenderness, Warmth, Inflammation Course - Re-evaluation Re-evalutation: 05/30/19 08:28 Abscess was I&D by Dr. Reid in the emergency room. He states he did remove a large amount of purulent drainage and he packed the wound. He requested patient return to the ED tomorrow afternoon for him to reexamine her. Patient to continue current antibiotics. Patient will be treated with some Tylenol before discharge as she is 22 weeks and that is all she wants to take while . Patient will be discharged home. - Vital Signs Vital signs: Temp Pulse Resp BP Pulse Ox 98.1 F 80 20 142/115 H 92 05/30/19 05:22 05/30/19 05:22 05/30/19 05:22 05/30/19 05:22 05/30/19 05:22 Discharge - Discharge Clinical Impression: Breast abscess Condition: Stable Disposition: HOME, SELF-CARE Additional Instructions: ABSCESS: You have an abscess (boil). This a pus-forming infection, usually due to staph. Some boils may be left to drain on their own, but most require lancing. From the time the tender lump first appears, it may be three or four days before the abscess is ready to zackery. Local heat and rest help at this stage of treatment. An antibiotic may prevent spread of the infection. Once the abscess is opened, packing may be placed into it. This is done so pus is not sealed inside by premature closure of the cavity. The packing will be removed at your follow-up visit or you may be advised to remove it yourself at home. Sometimes this packing must be replaced a few times during healing. The wound will heal with surprisingly little scar. Depending on the size and location of an abscess, healing can take one to four weeks. You may shower and wash the area around the incision site two or three times a day. Antibiotics may be prescribed, but are usually not necessary after an abscess has been drained. If you develop fever, chills, worsening pain, or increasing swelling in the area, call the doctor or return immediately. POST INCISION AND DRAINAGE: You have had an incision made to allow drainage of an abscess. The incision must remain open so that pus and debris can drain from the wound. If the abscess cavity is large, packing is placed. This keeps the tissues from collapsing and trapping pus inside, while the body shrinks the cavity. The packing may need to be replaced every day or two. The physician will instruct you on the packing. Keep a bulky dressing over the area. Replace it if it becomes saturated with blood or pus. Do not disturb the packing (if present). You may shower and cleanse the area with gentle soap and warm water two or three times a day. Local warmth may be soothing, and may promote faster healing. Return if you develop high fever or chills, or if you note spreading redness, increasing swelling, or increasing tenderness. MRSA CELLULITIS: You have an infection of your skin and underlying soft tissues called cellulitis. This is due to bacteria, which can enter through any break in the skin, or even through an irritated hair follicle. Untreated, cellulitis will usually worsen and may form an abscess which requires draining. Although many bacterial organisms can cause cellulitis and abscess format ions, the most likely bacteria is Methicillin-Resistant Staph Aureus, or MRSA for short. Antibiotics are required. Usually, warm packs or warm soaks, and elevation of the infected area are recommended. You should start getting better within 24 to 36 hours. Most infections respond quickly to the right medication. Follow-up care is important, however, to check for abscess (boil) formation, unsuspected foreign body, or resistant infection. If you develop fever, chills, or if the area of infection is becoming rapidly more swollen or painful, call the doctor at once. Continue taking the antibiotics you have been prescribed. Not change the dressing that is in place at this time. These return to the ED tomorrow afternoon when you see the physician tell them that the surgeon wants you to come back and be reexamined in the ED tomorrow. Forms: Elevated Blood Pressure Referrals: TWIN DYSON MD [Primary Care Provider] - Follow up as needed
[2019-05-30] MEDS ORDERED: ACETAMINOPHEN 325 MG TABLET PO ONE (08:33)
--- NOTE | 2019-05-30 08:38 | Operative Report ---
Operative Report DATE OF SURGERY: 05/30/19 PREOPERATIVE DIAGNOSIS: abscess left breast POSTOPERATIVE DIAGNOSIS: Same OPERATION: Incision and drainage left breast abscess SURGEON: EUGENE ZIMMERMAN ANESTHESIA: Local TISSUE REMOVED OR ALTERED: Pus COMPLICATIONS: None ESTIMATED BLOOD LOSS: 20 cc QUANTITATIVE BLOOD LOSS: 20 INTRAOPERATIVE FINDINGS: Abscess of the left breast at the periareolar area below the previous incision site PROCEDURE: After consent obtained for I&D of the left breast left breast area was then prepped and draped in the usual sterile fashion. Patient had a previous incision and drainage just above the new abscess site with some appears to be in the periareolar area. This was ultrasound yesterday in the ED which showed solid mass. This morning was noted to be fluctuant on the mid part just above the nipple. Local anesthesia infiltrated over the most fluctuant part in the abscess site just above the nipple. A 1 cm elliptical incision was made and purulent material extruded out. There was some light milky fluid also noted. Cultures were obtained. The cavity was probed and more purulent material extruded out at least 5 cc. There was fluctuant area on the medial side of the areole or area about to 1/2 cm from the original incision site. This was anesthetized with 1% lidocaine and another incision about 8 mm was made. This incision was then probed and appears to be joining the cavity abscess site and more purulent material extruded out. About 8 cc of pus was removed. The cavity was subsequently packed with 1/4 inch iodoform gauze about quarter of the bottle was used. The operative site was then dressed with sterile 4 x 4 ABD and adhesive tape. Patient tolerated procedure well. Patient will be discharged home from the ED to come back tomorrow for removal of the packing. She is to continue with antibiotics that was given to her in the ED in the past. Also patient advised to take Tylenol as needed PRN for pain since she is 21 weeks .
[2019-05-30 08:48] VITALS: BP 132/72
== END 2019-05-30 08:54 | disposition home or self-care (01) ==
LOC: ER 22:46
DX: O91.112 Abscess of breast associated with pregnancy, second trimester (principal); O99.512 Diseases of the respiratory system complicating pregnancy, second trimester; J45.909 Unspecified asthma, uncomplicated; Z3A.22 22 weeks gestation of pregnancy; Z87.891 Personal history of nicotine dependence
CPT/HCPCS: 99283; 87070; 87205; 87075; 87077; 10061; A6266; J3490 ×2

== ENCOUNTER 2019-06-01 22:19 | Emergency (ER) | payer MEDICAID ==
[2019-06-01] MEDS ORDERED: ACETAMINOPHEN 325 MG TABLET PO ONE (23:54)
--- NOTE | 2019-06-01 23:57 | ER Document Report ---
ED Medical Screen (RME) - General Chief Complaint: Abscess Recheck Stated Complaint: FOLLOW UP Time Seen by Provider: 06/01/19 23:54 Primary Care Provider: TWIN DYSON MD [Primary Care Provider] - Follow up as needed Mode of Arrival: Ambulatory Information source: Patient Notes: 23-year-old female presented to ED for abscess recheck to her left breast. She had an I&D last Sunday and then again on on Sunday by the surgical wrist in the ER both times. She was to come back yesterday while Dr. Reid was money manager to have him reexamined the wound. She states when she called in here they told her that it had been 24 hours before she came back. Patient states the pain is some better but it is still uncomfortable with the packing pick. She states she is taking her antibiotics as prescribed. She is 21 weeks . If you feel she needs to see the surgeon again she will come back tomorrow when Dr. Reid is money manager. I have greeted and performed a rapid initial assessment of this patient. A comprehensive ED assessment and evaluation of the patient, analysis of test results and completion of medical decision making process will be conducted by an additional ED providers. TRAVEL OUTSIDE OF THE [place] IN LAST 30 DAYS: No - Related Data Allergies/Adverse Reactions: No Known Allergies Allergy (Verified 05/29/19 23:38) Past Medical History Pulmonary Medical History: Reports: Hx Asthma Endocrine Medical History: Reports: Hx Diabetes Mellitus Type 2 - gestational Skin Medical History: Reports Hx Cellulitis Past Surgical History: Reports: Other - Buttocks abscess drainage in the remote past, left breast I&D - Immunizations Immunizations up to date: Yes Hx Diphtheria, Pertussis, Tetanus Vaccination: Yes Physical Exam - Vital signs Vitals: Temp Pulse Resp BP Pulse Ox 98.8 F 88 18 103/53 L 98 06/01/19 22:25 06/01/19 22:25 06/01/19 22:25 06/01/19 22:25 06/01/19 22:25 Course - Vital Signs Vital signs: Temp Pulse Resp BP Pulse Ox 98.8 F 88 18 103/53 L 98 06/01/19 22:25 06/01/19 22:25 06/01/19 22:25 06/01/19 22:25 06/01/19 22:25 Doctor's Discharge - Discharge Referrals: TWIN DYSON MD [Primary Care Provider] - Follow up as needed
--- NOTE | 2019-06-02 01:51 | ER Document Report ---
ED General - General Chief Complaint: Abscess Recheck Stated Complaint: FOLLOW UP Time Seen by Provider: 06/01/19 23:54 Primary Care Provider: TWIN DYSON MD [EMERITUS] - Follow up as needed Mode of Arrival: Ambulatory TRAVEL OUTSIDE OF THE [place] IN LAST 30 DAYS: No - Related Data Allergies/Adverse Reactions: No Known Allergies Allergy (Verified 05/29/19 23:38) Home Medications: keflex Past Medical History - General Information source: Patient - Social History Smoking Status: Former Smoker Family History: Reviewed & Not Pertinent - No history of breast problems in the family, Arthritis, CAD, CVA, DM, Hypertension Patient has suicidal ideation: No Patient has homicidal ideation: No Pulmonary Medical History: Reports: Hx Asthma Endocrine Medical History: Reports: Hx Diabetes Mellitus Type 2 - gestational Skin Medical History: Reports Hx Cellulitis Past Surgical History: Reports: Other - Buttocks abscess drainage in the remote past, left breast I&D - Immunizations Immunizations up to date: Yes Hx Diphtheria, Pertussis, Tetanus Vaccination: Yes Physical Exam - Vital signs Vitals: Temp Pulse Resp BP Pulse Ox 98.8 F 88 18 103/53 L 98 06/01/19 22:25 06/01/19 22:25 06/01/19 22:25 06/01/19 22:25 06/01/19 22:25 - Notes Notes: Patient presents to the ED for follow-up for left breast abscess. She was seen in the ED May 25 had an I&D by general surgery and discharged home. Returned on the second for follow-up had an ultrasound done with left before the results were obtained. Returned on May 30. Ultrasound showed a large abscess. Seen by general surgery with with incision and drainage in the ED to come back the next day for follow-up. She says she cannot make it and returns now for follow-up. Denies any fever she is taking her antibiotic she has had minimal pain. She does not change the dressing Patient was reports that she is about 21 weeks with no complications. She said no contractions or rupture of the membranes no bleeding past medical history is unremarkable Physical exam vital signs noted she is in no acute distress is a problem focused exam Chest is clear Heart is regular rate and rhythm Abdomen reveals a gravid uterus at about 20 weeks and nontender Exam done with nursing staff present. She has a dressing in place over the left breast. There is an elliptical incision just superior to the nipple with no drainage. Just above and below the nipple there is a drain in place. This was removed small amount of discharge on the packing there is no induration area no drainage from the nipple and no significant tenderness or redness. Course - Re-evaluation Re-evalutation: 06/02/19 01:54 Medical decision making patient presents for recheck. She still has some drainage from the the wound recommended that we repack it. She is adamant and refuses to have it repacked again. That the wound can close off and abscess could recur but she wants to try without packing. Plan at this point will discharge home. Dressing was applied she is advised to clean the wound twice a day with peroxide emphasized need further follow-up in the clinic in 1 to 2 days for fevers greater than 101 redness around the area or increased drainage 06/02/19 01:59 I did discuss case with general surgery they recommend repacked the wound and follow-up in clinic - Vital Signs Vital signs: Temp Pulse Resp BP Pulse Ox 98.8 F 88 18 103/53 L 98 06/01/19 22:25 06/01/19 22:25 06/01/19 22:25 06/01/19 22:25 06/01/19 22:25 Discharge - Discharge Clinical Impression: Encounter for wound re-check, Left breast abscess Condition: Stable Disposition: HOME, SELF-CARE Instructions: Abscess ([facility]), Post Incision and Drainage Additional Instructions: Please review the discharge instructions, they will tell you about your disease/injury and what you need to return to the ED for Return to the ED if you feel worse or can follow-up with your family doctor Clean wound twice a day with peroxide Return for fever greater than 101 redness around the breast or increased drainage it is extremely important that you follow-up in the surgery clinic in 1 to 2 days Referrals: TWIN DYSON MD [EMERITUS] - Follow up as needed EUGENE ZIMMERMAN MD [ACTIVE STAFF] - Follow up tomorrow (Follow-up in 1 to 2 days)
[2019-06-02 02:14] VITALS: BP 100/51
== END 2019-06-02 02:12 | disposition home or self-care (01) ==
LOC: ER 22:19
DX: N61.1 Abscess of the breast and nipple (principal)
CPT/HCPCS: 99282; J3490

== ENCOUNTER 2019-06-27 18:32 | Outpatient (CLI) | payer MEDICAID ==
[2019-06-27 20:18] LABS: APPEARANCE,URINE TURBID; BILIRUBIN,URINE NEGATIVE (NEGATIVE); COLOR,URINE YELLOW; GLUCOSE, URINE NEGATIVE (NEGATIVE); KETONES,URINE NEGATIVE (NEGATIVE); LEUKOCYTE ESTERASE,URINE SMALL (NEGATIVE); NITRITE,URINE NEGATIVE (NEGATIVE); PROTEIN,URINE 30 mg/dL (NEGATIVE); URINE SPECIFIC GRAVITY 1.027
[2019-06-27 20:28] LABS: URINE AMPHETAMINES SCREEN NEGATIVE; URINE BARBITURATES SCREEN NEGATIVE; URINE BENZODIAZEPINES SCREEN NEGATIVE; URINE COCAINE SCREEN NEGATIVE; URINE MARIJUANA (THC) SCREEN NEGATIVE; URINE METHADONE SCREEN NEGATIVE; URINE PHENCYCLIDINE SCREEN NEGATIVE
== END 2019-06-27 20:02 | disposition home or self-care (01) ==
LOC: LC 18:32
PROVIDERS: ATTEND Obstetrics & Gynecology
PROC: 4A1HXCZ Monitoring of Products of Conception, Cardiac Rate, External Approach (ICD-10-PCS; principal; 2019-06-27)
DX: O36.8120 Decreased fetal movements, second trimester, not applicable or unspecified (principal); Z3A.26 26 weeks gestation of pregnancy
CPT/HCPCS: 80307; 81001

== ENCOUNTER 2019-07-27 16:07 | Emergency (ER) | payer MEDICAID ==
[2019-07-27 16:21] VITALS: BP 127/64
== END 2019-07-27 16:22 | disposition left against medical advice (07) ==
LOC: ER 16:07
DX: Z53.21 Procedure and treatment not carried out due to patient leaving prior to being seen by health care provider (principal); R51 Headache

== ENCOUNTER 2019-09-25 15:36 | Outpatient (CLI) | payer MEDICAID ==
[2019-09-25 16:01] LABS: APPEARANCE,URINE CLOUDY; BILIRUBIN,URINE NEGATIVE (NEGATIVE); COLOR,URINE YELLOW; GLUCOSE, URINE NEGATIVE (NEGATIVE); KETONES,URINE NEGATIVE (NEGATIVE); LEUKOCYTE ESTERASE,URINE NEGATIVE (NEGATIVE); NITRITE,URINE NEGATIVE (NEGATIVE); PROTEIN,URINE 30 mg/dL (NEGATIVE); URINE SPECIFIC GRAVITY 1.016
[2019-09-25 16:16] LABS: URINE AMPHETAMINES SCREEN NEGATIVE; URINE BARBITURATES SCREEN NEGATIVE; URINE BENZODIAZEPINES SCREEN NEGATIVE; URINE COCAINE SCREEN NEGATIVE; URINE MARIJUANA (THC) SCREEN NEGATIVE; URINE METHADONE SCREEN NEGATIVE; URINE PHENCYCLIDINE SCREEN NEGATIVE
--- NOTE | 2019-09-25 16:37 | Non Stress Test Report ---
Non Stress Test Datetime Report Generated by CPN: 09/25/2019 16:37 DEMOGRAPHIC EGA NST: 38.1 MONITORING Monitor Explained: Monitor Explained; Test Explained; Patient Verbalized Understanding Time on Monitor: 09/25/2019 15:49 Time off Monitor: 09/25/2019 16:34 NST Duration: 45 NST INTERVENTIONS NST Interventions: PO Hydration; Reposition Patient Physician Notified NST: Yary Mcmullen, ACADEMIC TUTOR A: [id number] BABY A Movement : Present Contraction Frequency : 0 FHR Baseline : 130 Accelerations : 15X15 Decelerations : None Variability : Moderate 6-25bpm NST Review: Meets Criteria for Reactive NST NST Review and Verified By : SUDHIR Corcoran Results: Reactive NST REPORT Report Trigger: Send Report
== END 2019-09-25 16:40 | disposition home or self-care (01) ==
LOC: LC 15:36
PROVIDERS: ATTEND Obstetrics & Gynecology
DX: O36.8130 Decreased fetal movements, third trimester, not applicable or unspecified (principal); O24.410 Gestational diabetes mellitus in pregnancy, diet controlled; Z3A.38 38 weeks gestation of pregnancy
CPT/HCPCS: 59025; 80307; 81005

== ENCOUNTER 2019-09-28 10:00 | Inpatient (IN) | payer MEDICAID ==
[2019-09-28] MEDS ORDERED: RINGERS SOLUTION,LACTATED 1,000 ML IV ONE (10:28)
[2019-09-28] MEDS ORDERED: PENICILLIN G POTASSIUM 5,000,000 UNIT in DEXTROSE 5%-WATER 100 ML IV ONE (10:28)
[2019-09-28] MEDS ORDERED: RINGERS SOLUTION,LACTATED 1,000 ML IV PRN (10:28)
[2019-09-28] MEDS ORDERED: PENICILLIN G-K 5 MILLION UNIT VIAL ONE (10:32)
[2019-09-28 10:48] LABS: APPEARANCE,URINE CLOUDY; BILIRUBIN,URINE NEGATIVE (NEGATIVE); CALCIUM OXALATE CRYSTALS,URINE FEW /HPF; COLOR,URINE YELLOW; GLUCOSE, URINE NEGATIVE (NEGATIVE); KETONES,URINE NEGATIVE (NEGATIVE); LEUKOCYTE ESTERASE,URINE NEGATIVE (NEGATIVE); NITRITE,URINE NEGATIVE (NEGATIVE); PROTEIN,URINE NEGATIVE (NEGATIVE); URINE SPECIFIC GRAVITY 1.024
[2019-09-28 10:59] LABS: URINE AMPHETAMINES SCREEN NEGATIVE; URINE BARBITURATES SCREEN NEGATIVE; URINE BENZODIAZEPINES SCREEN NEGATIVE; URINE COCAINE SCREEN NEGATIVE; URINE MARIJUANA (THC) SCREEN NEGATIVE; URINE METHADONE SCREEN NEGATIVE; URINE PHENCYCLIDINE SCREEN NEGATIVE
[2019-09-28 11:41] LABS: ABSOLUTE EOSINOPHILS # (AUTO) 0.1 10^3/uL (0.0-0.6); ABSOLUTE MONOCYTES (AUTO) 0.4 10^3/uL (0.1-1.4); ABSOLUTE NEUT (AUTO) 4.5 10^3/uL (1.7-8.2); BASOPHILS % (AUTO) 0.1 % (0-2); EOSINOPHILS % (AUTO) 1.3 % (0-6); HEMATOCRIT 36.1 % (36.0-47.0); HEMOGLOBIN 12.7 g/dL (12.0-15.5); LYMPHOCYTES % (AUTO) 28.4 % (13-45); MEAN CORPUSCULAR HEMOGLOBIN 29.4 pg (27.0-33.4); MEAN CORPUSCULAR HGB CONC 35.1 g/dL (32.0-36.0); MEAN CORPUSCULAR VOLUME 84 fl (80-97); MONOCYTES % (AUTO) 5.3 % (3-13); RED BLOOD COUNT 4.31 10^6/uL (3.72-5.28); SEGMENTED NEUTROPHILS % (AUTO) 64.9 % (42-78); TOTAL CELLS COUNTED % (AUTO) 100 %; WHITE BLOOD COUNT 6.9 10^3/uL (4.0-10.5)
[2019-09-28] MEDS ORDERED: OXYTOCIN/NORMAL SALINE 20 UNIT/1,000 ML RTUINJ IV PRN ×2 (11:54→17:00)
[2019-09-28] MEDS ORDERED: LIDOCAINE 1% INJ-PF (10 MG/ML) 30 ML SDV ONE (11:55)
[2019-09-28] MEDS ORDERED: OXYTOCIN/NORMAL SALINE 20 UNIT/1,000 ML RTUINJ ONE ×2 (11:55→17:35)
[2019-09-28] MEDS ORDERED: OXYTOCIN 10 UNIT/ML VIAL ONE ×3 (11:55→17:40)
[2019-09-28] MEDS ORDERED: MISOPROSTOL 0.2 MG TABLET ONE (11:55)
[2019-09-28 12:02] LABS: PLATELET COUNT 98 10^3/uL (150-450)
[2019-09-28] MEDS ORDERED: PENICILLIN G POTASSIUM 2,500,000 UNIT in DEXTROSE 5%-WATER 50 ML IV SCH (14:29)
[2019-09-28 15:08] LABS: ABSOLUTE EOSINOPHILS # (AUTO) 0.1 10^3/uL (0.0-0.6); ABSOLUTE LYMPHOCYTES (AUTO) 1.8 10^3/uL (0.5-4.7); ABSOLUTE MONOCYTES (AUTO) 0.5 10^3/uL (0.1-1.4); BASOPHILS % (AUTO) 0.1 % (0-2); HEMATOCRIT 38.6 % (36.0-47.0); HEMOGLOBIN 13.7 g/dL (12.0-15.5); LYMPHOCYTES % (AUTO) 24.4 % (13-45); MEAN CORPUSCULAR HEMOGLOBIN 29.5 pg (27.0-33.4); MEAN CORPUSCULAR HGB CONC 35.5 g/dL (32.0-36.0); MEAN CORPUSCULAR VOLUME 83 fl (80-97); MONOCYTES % (AUTO) 7.1 % (3-13); RED BLOOD COUNT 4.64 10^6/uL (3.72-5.28); RED CELL DISTRIBUTION WIDTH 14.2 % (11.5-14.0); SEGMENTED NEUTROPHILS % (AUTO) 67.4 % (42-78); TOTAL CELLS COUNTED % (AUTO) 100 %; WHITE BLOOD COUNT 7.4 10^3/uL (4.0-10.5)
[2019-09-28] MEDS ORDERED: FENTANYL/BUPIVACAINE/NS/PF 300 MCG/150 ML RTUINJ EPI ONE (15:28)
[2019-09-28] MEDS ORDERED: EPHEDRINE SULFATE INJ 50 MG/1 ML AMPULE ONE (15:28)
[2019-09-28] MEDS ORDERED: BUPIVACAINE HCL 0.25 % INJ/PF (2.5 MG/1 ML) 30 ML VIAL ONE (15:28)
[2019-09-28 15:41] LABS: PLATELET COUNT 96 10^3/uL (150-450)
--- NOTE | 2019-09-28 16:33 | Admission Physical ---
Datetime Report Generated by CPN: 09/28/2019 16:33 CURRENT ADMISSION Chief Complaint: Uterine Contractions Indication for Induction: Not Applicable Indication for Induction- Other: augmentation for advanced cervical dilation Admit Impression : Term, Intrauterine ; Intact Membranes Admit Plan: Admit to Unit; Initiate Labor Protocol ALLERGIES Medication Allergies: No Medication Allergies: No Known Allergies (09/28/2019) Latex: No Latex Allergies OBSTETRICAL HISTORY EDC: 10/08/2019 00:00 : 2 Para: 1 Term: 1 : 0 SAB: 0 IAB: 0 Ectopic: 0 Livin Cesareans: 0 VBACs: 0 Multiple Births: 0 Gestational Diabetes: Yes Rh Sensitization: No Incompetent Cervix: No CAROLINE: No Infertility: No ART Treatment: No Uterine Anomaly: No IUGR: No Hx Previous C/S: No Macrosomia: No Hx Loss/Stillborn: No PIH: No Hx : No Placenta Previa/Abruption: No Depression/PP Depression: No PTL/PROM: No Post Hemorrhage: No Current Procedures: Ultrasound; NST Obstetrical History Comments: G1-01/08/2017, Girl at 37weeks G2-Current, GDM SEE RECORDS Alcohol: No Marijuana : No Cocaine: No Other Illicit Drugs: No Cigarettes: Former Smoker. [id number] Cigarette Comments: smoked 1/2 ppd; stopped when she found out she was MEDICAL HISTORY Diabetes: Yes Diabetes Type: Gestational Diabetes Blood Transfusion: No Pulmonary Disease (Asthma, TB): No Breast Disease: Yes Hypertension: No Adhesive Sprayer Surgery: No Heart Disease: No Hosp/Surgery: Yes Autoimmune Disorder: No Anesthetic Complications: No Kidney Disease: No Abnormal Pap Smear: No Neuro/Epilepsy: No Psychiatric Disorders: No Other Medical Diseases: No Hepatitis/Liver Disease: No Significant Family History: No Varicosities/Phlebitis: No Trauma/Violence : No Medical History Comments: GDM during both pregnancies, breast abscess I_D 2018 INFECTIOUS HISTORY Gonorrhea: Yes Genital Herpes: No Chlamydia: No Tuberculosis: No Syphilis: No Hepatitis: No HIV/AIDS Exposure: No Rash or Viral Illness: No HPV: No Infectious History Comments: Gonorrhea in 01/2019. Treated and ERIC per pt. + Trichomoniasis this PHYSICAL EXAM General: Normal HEENT: Normal Neurologic: Normal Thyroid: Deferred Heart: Normal Lungs: Normal Breast: Deferred Back: Normal Abdomen: Normal Genitourinary Exam: Normal Extremities: Normal DTRs: Normal Pelvic Type: Adequate Vital Signs: Reviewed VAGINAL EXAM Dilatation: 5 Effacement: 80 Station: -1 Contraction Comments: irreg MEMBRANES Membranes: Intact FETUS A EGA: 38.4 Monitoring: External US FHR- Baseline: 125 Variability: Moderate 6-25bpm Accelerations: 15X15 Decelerations: None FHR Category: Category I Presentation: Vertex Admit Comment: 23yo at 38+4ega presents for irregular contractions but now cvx 5cm and she is GBS positive. PCN for GBS positive. prior delivery 5# at 37wks - GDM and GBS pos. Plan to admit for PCN and pitocin and anticipate . Rubella NI. EFW 5#13oz on 09/08. Gonorrhea and trich treated in early - good ERIC. . H/o asthma as a child. Breast abscess this preg - drained by Dr. Troncoso. A2GDM just recently started on glyburide. Anticipate . PLANS FOR LABOR AND DELIVERY Labor and Delivery: None Pain Management: Epidural Feeding Preference: Formula Benefit of Breast Feed Discussed: Yes Circumcision: Yes INFORMED CONSENT Informed Consent Obtained: Vaginal Delivery; Risks, Benefits and Alternatives Discussed Signature: with User ID: [email or web address]
[2019-09-28] MEDS ORDERED: MEASLES,MUMPS&RUBELLA VACC/PF 0.5 ML VIAL SUBCUT PRN (17:00)
[2019-09-28] MEDS ORDERED: PROMETHAZINE HCL 25 MG TABLET PO PRN (17:00)
[2019-09-28] MEDS ORDERED: MAGNESIUM HYDROXIDE SUSP 30 ML UDCUP PO PRN (17:00)
[2019-09-28] MEDS ORDERED: ZOLPIDEM TARTRATE 5 MG TABLET PO PRN (17:00)
[2019-09-28] MEDS ORDERED: PROMETHAZINE HCL INJ 25 MG/1 ML VIAL IV PRN (17:00)
[2019-09-28] MEDS ORDERED: DIPH/PERTUSS(ACELL)/TETANUS VAC/PF 0.5 ML SYR (>=10YO) IM PRN (17:00)
[2019-09-28] MEDS ORDERED: DIBUCAINE 1% OINTMENT 28 GM TP PRN (17:00)
[2019-09-28] MEDS ORDERED: PROMETHAZINE HCL 25 MG SUPP.RECT PR PRN (17:00)
[2019-09-28] MEDS ORDERED: GLYCERIN/WITCH HAZEL LEAF 1 EACH MED..WIPE TP PRN (17:00)
[2019-09-28] MEDS ORDERED: ACETAMINOPHEN WITH CODEINE #3 TABLET PO PRN (17:00)
[2019-09-28] MEDS ORDERED: PSEUDOEPHEDRINE HCL 30 MG TABLET PO PRN (17:00)
[2019-09-28] MEDS ORDERED: MISOPROSTOL 0.2 MG TABLET PR PRN (17:00)
[2019-09-28] MEDS ORDERED: DIPHENHYDRAMINE HCL 25 MG CAPSULE PO PRN (17:00)
[2019-09-28] MEDS ORDERED: NA PHOS,M-B/NA PHOS,DI-BA (ADULT) 133 ML ENEMA PR PRN (17:00)
[2019-09-28] MEDS ORDERED: ACETAMINOPHEN 325 MG TABLET PO PRN (17:00)
[2019-09-28] MEDS ORDERED: BENZOCAINE/MENTHOL AEROSOL SPRAY 56 ML TOP PRN (17:00)
[2019-09-28] MEDS ORDERED: METHYLERGONOVINE MALEATE INJ/PF 0.2 MG/1 ML AMPULE ONE (17:35)
[2019-09-28] MEDS ORDERED: METHYLERGONOVINE MALEATE INJ/PF 0.2 MG/1 ML AMPULE IM ONE (18:00)
--- NOTE | 2019-09-28 18:18 | Warning Signs in Babies ---
VOD Warning Signs Datetime Report Generated by [facility]: 09/28/2019 18:17 VOD#[id number] -Warning Signs in Babies: Needs to be viewed. (06/27/2019 18:53:Beverly Ward RN)
--- NOTE | 2019-09-28 18:18 | Delivery Summary ---
Del Sum A-C Datetime Report Generated by CPN: 09/28/2019 18:17 DELIVERY PERSONNEL DELIVERY PERSONNEL: [id number] Delivery Doctor:: Enid Whitney MD Labor and Delivery Nurse:: Beverly Ward RNplastic surgery technician Nurse:: Laly Min RN Nursery Nurse:: Rochelle Guerin RN Nursery Nurse:: SUDHIR Galvan/BINDER ROLLER: Laurel Davis, COST ANALYST MATERNAL INFORMATION Delivery Anesthesia: Epidural Medications After Delivery: Pitocin Bolus-Please Comment; Pitocin Drip 20 Units/1000ml NSS; Methergine 0.2mg IM; Cytotec 1000mcg Per Rectum/Vagina Meds After Delivery Comment: 20 units in 1000mL NS open bolus, additional 20 units in 500mL LR Estimated Blood Loss (ml): 50 Delivery QBL: 200 Maternal Complications: None Provider Comments: VMI delivered in RALF presentation. No nuchal cord. Shoulders and body delivered without difficulty. Cord doubly clamped and cut. Placenta delivered intact spontaneously. FF at U. Good hemostasis. 1000mcg Cytotec given for intermittent Uterine atony. No perineal lacerations. Mother and baby stable upon provider leaving the room. LABOR SUMMARY EDC: 10/08/2019 00:00 No. Babies in Womb: 1 Attempted: No Labor Anesthesia: Epidural LABOR INFORMATION Reason for Induction: Not Applicable Onset of Labor: 09/28/2019 12:05 Complete Dilatation: 09/28/2019 16:41 Oxytocin: Augmentation Group B Beta Strep: positive Antibiotics # of Doses: 2 Antibiotics Time of Last Dose: 144 Name of Antibiotic Given: PCN Steroids Given: None Reason Steroids Not Administered: Not Applicable MEMBRANES Membranes Rupture Method: Artificial Rupture of Membranes: 09/28/2019 16:22 Length of Rupture (hr): 0.50 Amniotic Fluid Color: Light Meconium Amniotic Fluid Amount: Moderate Amniotic Fluid Odor: Normal STAGES OF LABOR Stage 1 hr: 4 Stage 1 min: 36 Stage 2 hr: 0 Stage 2 min: 11 Stage 3 hr: 0 Stage 3 min: 3 Total Time in Labor hr: 4 Total Time in Labor min: 50 VAGINAL DELIVERY Episiotomy: None Laceration #1: None Laceration Extension #1: N/A Laceration Repair: Not Applicable Sponge Count Correct: Yes Sharps Count Correct: Yes CSECTION DELIVERY Primary Indication: N/A Secondary Indication: N/A CSection Incidence: N/A Labor: N/A Elective: N/A CSection Incision: N/A BABY A INFORMATION Infant Delivery Date/Time: 09/28/2019 16:52 Method of Delivery: Vaginal Nurse Controlled Delivery: No Born in Route : No : N/A Forceps: N/A Vacuum Extraction: N/A Shoulder Dystocia : No PRESENTATION/POSITION BABY A Presentation: Cephalic Cephalic Presentation: Vertex Vertex Position: Occipital Anterior Breech Presentation: N/A PLACENTA INFORMATION BABY A Placenta Delivery Time : 09/28/2019 16:55 Placenta Method of Delivery: Spontaneous Placenta Status: Delivered SCORES BABY A Heart Rate 1 min: >100 bpm Resp Effort 1 min: Good Cry Reflex Irritability 1 min: Cough or Sneeze or Pulls Away Muscle Tone 1 min: Active Motion Color 1 min: Body [place], Extremities Blue Resuscitation Effort 1 min: Tactile Stimulation SCORE 1 MIN: 9 Heart Rate 5 min: >100 bpm Resp Effort 5 min: Good Cry Reflex Irritability 5 min: Cough or Sneeze or Pulls Away Muscle Tone 5 min: Active Motion Color 5 min: Body [place], Extremities Blue Resuscitation Effort 5 min: N/A SCORE 5 MIN: 9 INFANT INFORMATION BABY A Gestational Age at Delivery: 38.4 Gestational Status: Early Term- 37- 38.6 Weeks Infant Outcome : Liveborn Infant Condition : Stable Sex: Male IDENTIFICATION BABY A Infant Verification Date/Time: 09/28/2019 17:03 ID Band Number: [id number] Mother's Name Verified: Yes Infant RN Verifying : CHomar Henley RN, THomar Guillermo RN WEIGHT/LENGTH BABY A Birthweight (gm): 2819 Infant Weight (lb): 6 Weight (oz): 3 Length (in): 18.50 Length (cm): 46.99 CORD INFORMATION BABY A No. Cord Vessels: 3 Nuchal Cord : N/A Cord Blood Taken: Yes-For Storage (Mom's Blood type +) Suction: None ASSESSMENT BABY A Complications: Meconium Physical Findings at Delivery: Within Normal Limits Respirations: Appears Normal Skin to Skin: No Skin to Skin Time (min): 60 Donor Recruiter/ALS Called : No Care By: J Guerin, RN Transferred To: [facility] BABY B INFORMATION : N/A SIGNATURES Signature: with User ID: [email or web address]
[2019-09-28] MEDS ORDERED: DOCUSATE SODIUM 100 MG CAPSULE ONE (18:29)
[2019-09-28] MEDS ORDERED: FERROUS SULFATE 325 MG TABLET PO ONE (18:30)
[2019-09-28] MEDS: DOCUSATE SODIUM 100 MG CAPSULE PO SCH (18:30)
[2019-09-28] MEDS: FERROUS SULFATE 325 MG TABLET PO SCH (18:30)
[2019-09-28] MEDS ORDERED: ACETAMINOPHEN WITH CODEINE #3 TABLET ONE (19:05)
[2019-09-28] MEDS ORDERED: IBUPROFEN 800 MG TABLET ONE (19:06)
[2019-09-28] MEDS: ACETAMINOPHEN WITH CODEINE #3 TABLET PO PRN (19:12)
[2019-09-28 19:50] LABS: ABSOLUTE LYMPHOCYTES (AUTO) 1.2 10^3/uL (0.5-4.7); ABSOLUTE MONOCYTES (AUTO) 0.3 10^3/uL (0.1-1.4); ABSOLUTE NEUT (AUTO) 10.8 10^3/uL (1.7-8.2); BASOPHILS % (AUTO) 0.1 % (0-2); EOSINOPHILS % (AUTO) 0.1 % (0-6); HEMATOCRIT 38.6 % (36.0-47.0); HEMOGLOBIN 13.6 g/dL (12.0-15.5); LYMPHOCYTES % (AUTO) 9.6 % (13-45); MEAN CORPUSCULAR HEMOGLOBIN 29.6 pg (27.0-33.4); MEAN CORPUSCULAR HGB CONC 35.3 g/dL (32.0-36.0); MEAN CORPUSCULAR VOLUME 84 fl (80-97); MONOCYTES % (AUTO) 2.4 % (3-13); PLATELET COUNT 102 10^3/uL (150-450); RED BLOOD COUNT 4.61 10^6/uL (3.72-5.28); RED CELL DISTRIBUTION WIDTH 14.3 % (11.5-14.0); SEGMENTED NEUTROPHILS % (AUTO) 87.8 % (42-78); TOTAL CELLS COUNTED % (AUTO) 100 %; WHITE BLOOD COUNT 12.2 10^3/uL (4.0-10.5)
[2019-09-28 19:55] LABS: INTERNATIONAL RATION (INR) 1.06; PROTHROMBIN TIME 13.8 SEC (11.4-15.4)
[2019-09-28 19:56] LABS: PARTIAL THROMBOPLASTIN TIME 28.3 SEC (23.5-35.8)
[2019-09-28] MEDS: IBUPROFEN 800 MG TABLET PO SCH (22:06)
[2019-09-28] MEDS: FAMOTIDINE 20 MG TABLET PO SCH (22:06)
[2019-09-29] MEDS: ACETAMINOPHEN WITH CODEINE #3 TABLET PO PRN (02:28)
[2019-09-29] MEDS: IBUPROFEN 800 MG TABLET PO SCH ×3 (05:13→22:20)
[2019-09-29 06:51] LABS: HEMATOCRIT 33.7 % (36.0-47.0); HEMOGLOBIN 11.9 g/dL (12.0-15.5); MEAN CORPUSCULAR HEMOGLOBIN 29.6 pg (27.0-33.4); MEAN CORPUSCULAR HGB CONC 35.4 g/dL (32.0-36.0); MEAN CORPUSCULAR VOLUME 84 fl (80-97); PLATELET COUNT 101 10^3/uL (150-450); RED BLOOD COUNT 4.02 10^6/uL (3.72-5.28); RED CELL DISTRIBUTION WIDTH 14.1 % (11.5-14.0); WHITE BLOOD COUNT 11.9 10^3/uL (4.0-10.5)
[2019-09-29] MEDS: FERROUS SULFATE 325 MG TABLET PO SCH ×2 (09:20→18:28)
[2019-09-29] MEDS: PRENATAL VITAMIN W DHA CAPSULE PO SCH (09:20)
[2019-09-29] MEDS: DOCUSATE SODIUM 100 MG CAPSULE PO SCH ×2 (09:20→18:28)
[2019-09-29] MEDS: SENNOSIDES/DOCUSATE 8.6-50 MG 1 EACH TABLET PO SCH (09:20)
[2019-09-29] MEDS: FAMOTIDINE 20 MG TABLET PO SCH ×2 (09:20→22:20)
--- NOTE | 2019-09-29 11:18 | PDOC PROGRESS REPORT ---
Subjective-OB Progress Note for:: 09/29/19 Subjective: 23yo G2 now P2 s/p ppd 1. Pt ambulating and voiding without difficulty. Reports pain well controlled with medication, no concerns at this time Physical Exam (OB) Vital Signs: Temp Pulse Resp BP Pulse Ox 98.1 F 64 18 125/71 100 09/29/19 07:19 09/29/19 07:19 09/29/19 07:19 09/29/19 07:19 09/29/19 07:19 Intake & Output 09/28/19 09/29/19 09/30/19 06:59 06:59 06:59 Weight 103.2 kg - General General Appearance: Appears well In distress: None - PIH/Pre-Eclampsia Headache: Absent Epigastric Pain: No Visual Changes: No - Episiotomy/Laceration Site Condition: N/A - Lochia Lochia Amount: Scant < 10 ml Lochia Color: Rubra/Red - Abdomen Description: Soft Hernia Present: No Fundal Description: Firm Fundal Height: u/u - u/2 - Respiratory Respiratory Status: No respiratory distress - Extremities Upper extremity: Normal inspection Lower extremities: Normal inspection - Neurological Cognition: Normal Orientation: AAOx4 - Psychological Associated symptoms: Normal affect, Normal mood Objective-Diagnostic Laboratory: 09/29/19 06:31 09/28/19 09/28/19 09/28/19 10:10 11:20 11:20 WBC 6.9 RBC 4.31 Hgb 12.7 Hct 36.1 MCV 84 MCH 29.4 MCHC 35.1 RDW 14.0 Plt Count 98 L Seg Neutrophils % 64.9 Urine Color YELLOW Urine Appearance CLOUDY Urine pH 6.0 Ur Specific [place] 1.024 Urine Protein NEGATIVE Urine Glucose (UA) NEGATIVE Urine Ketones NEGATIVE Urine Blood MODERATE H Urine Nitrite NEGATIVE Ur Leukocyte Esterase NEGATIVE Urine WBC (Auto) 2 Urine RBC (Auto) 1 Blood Type B POSITIVE Antibody Screen NEGATIVE 09/28/19 09/28/19 09/29/19 14:57 19:36 06:31 WBC 7.4 12.2 H 11.9 H RBC 4.64 4.61 4.02 Hgb 13.7 13.6 11.9 L Hct 38.6 38.6 33.7 L MCV 83 84 84 MCH 29.5 29.6 29.6 MCHC 35.5 35.3 35.4 RDW 14.2 H 14.3 H 14.1 H Plt Count 96 L 102 L 101 L Seg Neutrophils % 67.4 87.8 H Urine Color Urine Appearance Urine pH Ur Specific [place] Urine Protein Urine Glucose (UA) Urine Ketones Urine Blood Urine Nitrite Ur Leukocyte Esterase Urine WBC (Auto) Urine RBC (Auto) Blood Type Antibody Screen Assessment and Plan(PN) - Assessment and Plan (1) Vaginal delivery Is this a current diagnosis for this admission?: Yes Plan: routine pp care (2) Gestational diabetes mellitus (GDM) controlled on oral hypoglycemic drug, antepartum Is this a current diagnosis for this admission?: Yes Plan: fasting glucose at appt as indicated (3) Carrier or suspected carrier of group B Streptococcus Is this a current diagnosis for this admission?: Yes Plan: delivered (4) Gestational thrombocytopenia Qualifiers: Trimester: unspecified trimester Qualified Code(s): O99.119 - Other diseases of the blood and blood-forming organs and certain disorders involving the immune mechanism complicating , unspecified trimester; D69.6 - Thrombocytopenia, unspecified Is this a current diagnosis for this admission?: Yes Plan: platelets increasing, above 100 now. Will need CBC/hematology consult in 4 weeks, warning s/s revd (5) hemorrhage, delivered, current hospitalization Is this a current diagnosis for this admission?: Yes Plan: continue to monitor - Time Spent with Patient Time with patient: Less than 15 minutes Medications reviewed and adjusted accordingly: Yes - Disposition Anticipated Discharge: Home Within: within 24 hours
[2019-09-30] MEDS: IBUPROFEN 800 MG TABLET PO SCH ×2 (05:47→14:20)
[2019-09-30 08:04] VITALS: BP 140/74
[2019-09-30] MEDS: FAMOTIDINE 20 MG TABLET PO SCH (10:31)
[2019-09-30] MEDS: PRENATAL VITAMIN W DHA CAPSULE PO SCH (10:31)
[2019-09-30] MEDS: SENNOSIDES/DOCUSATE 8.6-50 MG 1 EACH TABLET PO SCH (10:31)
[2019-09-30] MEDS: FERROUS SULFATE 325 MG TABLET PO SCH (10:31)
[2019-09-30] MEDS: DOCUSATE SODIUM 100 MG CAPSULE PO SCH (10:31)
--- NOTE | 2019-09-30 13:47 | PDOC DISCHARGE SUMMARY ---
Impression - Admit/DC Date/PCP Admission Date/Primary Care Provider: 09/28/19 10:44 CARLYLE SY MD Discharge Date: 09/30/19 - Discharge Diagnosis (1) Vaginal delivery Is this a current diagnosis for this admission?: Yes (2) Gestational thrombocytopenia Is this a current diagnosis for this admission?: Yes (3) Gestational diabetes mellitus (GDM) controlled on oral hypoglycemic drug, antepartum Is this a current diagnosis for this admission?: Yes - Additional Information Discharge Diet: Regular Discharge Activity: Activity As Tolerated, Pelvic Rest Referrals: [facility] [Provider Group] (Please call and schedule a 4 week follow up at [facility]. ) Prescriptions: Ibuprofen [Motrin 800 mg Tablet] 800 mg PO Q8HP PRN #60 tablet PRN Reason: Home Medications: Vitamin [-U Multiple Vitamin Capsule] 1 cap PO DAILY 09/28/19 Ibuprofen [Motrin 800 mg Tablet] 800 mg PO Q8HP PRN #60 tablet 09/30/19 Results Laboratory Results: WBC 11.9 10^3/uL (4.0-10.5) H 09/29/19 06:31 RBC 4.02 10^6/uL (3.72-5.28) 09/29/19 06:31 Hgb 11.9 g/dL (12.0-15.5) L 09/29/19 06:31 Hct 33.7 % (36.0-47.0) L 09/29/19 06:31 MCV 84 fl (80-97) 09/29/19 06:31 MCH 29.6 pg (27.0-33.4) 09/29/19 06:31 MCHC 35.4 g/dL (32.0-36.0) 09/29/19 06:31 RDW 14.1 % (11.5-14.0) H 09/29/19 06:31 Plt Count 101 10^3/uL (150-450) L 09/29/19 06:31 Lymph % (Auto) 9.6 % (13-45) L 09/28/19 19:36 [place] % (Auto) 2.4 % (3-13) L 09/28/19 19:36 Eos % (Auto) 0.1 % (0-6) 09/28/19 19:36 Baso % (Auto) 0.1 % (0-2) 09/28/19 19:36 Absolute Neuts (auto) 10.8 10^3/uL (1.7-8.2) H 09/28/19 19:36 Absolute Lymphs (auto) 1.2 10^3/uL (0.5-4.7) 09/28/19 19:36 Absolute Monos (auto) 0.3 10^3/uL (0.1-1.4) 09/28/19 19:36 Absolute Eos (auto) 0.0 10^3/uL (0.0-0.6) 09/28/19 19:36 Absolute Basos (auto) 0.0 10^3/uL (0.0-0.2) 09/28/19 19:36 Seg Neutrophils % 87.8 % (42-78) H 09/28/19 19:36 PT 13.8 SEC (11.4-15.4) 09/28/19 19:36 INR 1.06 09/28/19 19:36 APTT 28.3 SEC (23.5-35.8) 09/28/19 19:36 Fibrinogen 272 mg/dL (209-497) 09/28/19 19:36 Urine Color YELLOW 09/28/19 10:10 Urine Appearance CLOUDY 09/28/19 10:10 Urine pH 6.0 (5.0-9.0) 09/28/19 10:10 Ur Specific [place] 1.024 09/28/19 10:10 Urine Protein NEGATIVE mg/dL (NEGATIVE) 09/28/19 10:10 Urine Glucose (UA) NEGATIVE mg/dL (NEGATIVE) 09/28/19 10:10 Urine Ketones NEGATIVE mg/dL (NEGATIVE) 09/28/19 10:10 Urine Blood MODERATE (NEGATIVE) H 09/28/19 10:10 Urine Nitrite NEGATIVE (NEGATIVE) 09/28/19 10:10 Urine Bilirubin NEGATIVE (NEGATIVE) 09/28/19 10:10 Urine Urobilinogen 2.0 mg/dL (<2.0) H 09/28/19 10:10 Ur Leukocyte Esterase NEGATIVE (NEGATIVE) 09/28/19 10:10 Urine WBC (Auto) 2 /HPF 09/28/19 10:10 Urine RBC (Auto) 1 /HPF 09/28/19 10:10 Urine Bacteria (Auto) TRACE /HPF 09/28/19 10:10 Squamous Epi Cells Auto 28 /HPF 09/28/19 10:10 Calcium Oxalate Cr Auto FEW /HPF 09/28/19 10:10 Urine Mucus (Auto) OCC /LPF 09/28/19 10:10 Urine Ascorbic Acid NEGATIVE (NEGATIVE) 09/28/19 10:10 Urine Opiates Screen NEGATIVE 09/28/19 10:10 Urine Methadone Screen NEGATIVE 09/28/19 10:10 Ur Barbiturates Screen NEGATIVE 09/28/19 10:10 Ur Phencyclidine Scrn NEGATIVE 09/28/19 10:10 Ur Amphetamines Screen NEGATIVE 09/28/19 10:10 U Benzodiazepines Scrn NEGATIVE 09/28/19 10:10 Urine Cocaine Screen NEGATIVE 09/28/19 10:10 U Marijuana (THC) Screen NEGATIVE 09/28/19 10:10 RPR NONREACTIVE (NONREACTIVE) 09/28/19 11:20 Blood Type B POSITIVE 09/28/19 11:20 Antibody Screen NEGATIVE 09/28/19 11:20 Plan Plan of Treatment: follow up in 4 weeks at [facility] for post check
== END 2019-09-30 14:30 | disposition home or self-care (01) | DRG 806 ==
LOC: LC 10:00 → LR 10:44 → 2S 20:24
PROVIDERS: ADMIT Student in an Organized Health Care Education/Training Program; ATTEND Student in an Organized Health Care Education/Training Program
PROC: 10E0XZZ Delivery of Products of Conception, External Approach (ICD-10-PCS; principal; 2019-09-28)
PROC: 10907ZC Drainage of Amniotic Fluid, Therapeutic from Products of Conception, Via Natural or Artificial Opening (ICD-10-PCS; 2019-09-28)
DX: O24.425 Gestational diabetes mellitus in childbirth, controlled by oral hypoglycemic drugs (principal); O99.12 Other diseases of the blood and blood-forming organs and certain disorders involving the immune mechanism complicating childbirth; Z37.0 Single live birth; O72.2 Delayed and secondary postpartum hemorrhage; D69.6 Thrombocytopenia, unspecified; O99.824 Streptococcus B carrier state complicating childbirth; Z87.891 Personal history of nicotine dependence; Z3A.38 38 weeks gestation of pregnancy
CPT/HCPCS: 36415; 80307; 81001; 85025; 85027; 85384; 85610; 85730; 86592; 86850; 86900; 86901; 94760; C1758; J2210; J2540; J2590; J3010; J3490; J7060

== ENCOUNTER 2020-01-17 11:30 | Emergency (ER) | payer MEDICAID ==
--- NOTE | 2020-01-17 13:52 | ER Document Report ---
Entered by CONNIE RODRIGUEZ SCRIBE 01/17/20 1324 Acting as scribe for:RAMESH HOFF MD ED ENT - General Chief Complaint: Sore Throat Stated Complaint: SORE THROAT Time Seen by Provider: 01/17/20 11:55 TRAVEL OUTSIDE OF THE [place] IN LAST 30 DAYS: No - Related Data Allergies/Adverse Reactions: No Known Allergies Allergy (Verified 01/17/20 11:57) Past Medical History - Social History Smoking Status: Current Every Day Smoker Frequency of alcohol use: None Drug Abuse: None Family History: Reviewed & Not Pertinent - No history of breast problems in the family, Arthritis, CAD, CVA, DM, Hypertension Patient has homicidal ideation: No Pulmonary Medical History: Reports: Hx Asthma Endocrine Medical History: Reports: Hx Diabetes Mellitus Type 2 - gestational Skin Medical History: Reports Hx Cellulitis Psychiatric Medical History: Denies: Hx Depression Past Surgical History: Reports: Other - Buttocks abscess drainage in the remote past, left breast I&D - Immunizations Immunizations up to date: Yes Hx Diphtheria, Pertussis, Tetanus Vaccination: Yes Physical Exam - Vital signs Vitals: Temp Pulse Resp BP Pulse Ox 99.0 F 94 20 126/71 H 100 01/17/20 11:35 01/17/20 11:35 01/17/20 11:35 01/17/20 11:35 01/17/20 11:35 Course - Re-evaluation Re-evalutation: 01/17/20 13:47 Patient resting comfortably not showing signs of distress. - Vital Signs Vital signs: Temp Pulse Resp BP Pulse Ox 99 F 94 20 126/71 H 100 01/17/20 11:45 01/17/20 11:35 01/17/20 11:35 01/17/20 11:35 01/17/20 11:35 01/17/20 13:47 Vital signs stable - Laboratory Laboratory results interpreted by me: 01/17/20 13:47 Strep screen negative Discharge - Discharge Clinical Impression: Acute pharyngitis, Suspected COVID-19 virus infection Condition: Stable Disposition: HOME, SELF-CARE Instructions: Sore Throat ([facility]) Additional Instructions: Sore Throat Sore throats may be caused by viruses, bacteria, or fungi. Most are due to a virus, and must get better on their own. Bacterial sore throats, particularly those due to "strep," need treatment with antibiotics. If an antibiotic is prescribed, be sure to take the medication for a full 10 days. Failure to take the antibiotic can result in complications such as rheumatic fever. Sometimes, an injection of antibiotics is given instead of pills or liquid. This single "shot" is equal in effectiveness to the oral medication. To relieve symptoms, take acetaminophen for pain. Sip clear liquids frequently, or eat popsicles or ice chips. Anesthetic sprays or lozenges may help. Make sure the air in the room is not too dry. Avoid using decongestants or antihistamines. Call the doctor if there is no improvement in two days, or if you have difficulty breathing, increasing throat pain, high fever, rash, or frequent vomiting. Recommend you take Advil Cold and Sinus as needed for any sinus congestion or postnasal drip. Antibiotics have been prescribed amoxicillin 1 tablet twice a day. Also you become a patient of suspicion for Covid 19, therefore you must self quarantine as directed. Prescriptions: Amoxicillin 875 mg PO BID #20 tablet I personally performed the services described in the documentation, reviewed and edited the documentation which was dictated to the scribe in my presence, and it accurately records my words and actions.
[2020-01-17 14:03] VITALS: BP 128/78
== END 2020-01-17 14:02 | disposition home or self-care (01) ==
LOC: ER 11:30
DX: U07.1 COVID-19 (principal); J02.9 Acute pharyngitis, unspecified; R09.82 Postnasal drip; J45.909 Unspecified asthma, uncomplicated; F17.200 Nicotine dependence, unspecified, uncomplicated
CPT/HCPCS: 99283; 87070; 87880; 87635; C9803

== ENCOUNTER 2020-04-12 18:07 | Emergency (ER) | payer MEDICAID ==
[2020-04-12 18:30] VITALS: BP 129/72
[2020-04-12] MEDS ORDERED: ACETAMINOPHEN 325 MG TABLET PO ONE (19:40)
--- NOTE | 2020-04-12 19:40 | ER Document Report ---
ED Medical Screen (RME) - General Chief Complaint: Abscess Stated Complaint: PELVIC PAIN Time Seen by Provider: 04/12/20 19:37 Mode of Arrival: Ambulatory Information source: Patient Notes: 24-year-old female presented to ED for a left labial cyst abscess. She states it has been there for 3 days this time. She states when she was here last time that 1 did get better but this was started about 3 days ago. She states the pain is a 5/5 at this time she states it encompasses almost the whole left labia. She states she has soaked it with warm water and she is placed in a gown and neither 1 of help. She would like some Tylenol now and she will need to be seen by another provider to do an I&D on this abscess. I have greeted and performed a rapid initial assessment of this patient. A comprehensive ED assessment and evaluation of the patient, analysis of test results and completion of medical decision making process will be conducted by an additional ED providers. TRAVEL OUTSIDE OF THE [place] IN LAST 30 DAYS: No - Related Data Allergies/Adverse Reactions: No Known Allergies Allergy (Verified 01/17/20 11:57) Past Medical History Pulmonary Medical History: Reports: Hx Asthma Endocrine Medical History: Reports: Hx Diabetes Mellitus Type 2 - gestational Skin Medical History: Reports Hx Cellulitis Psychiatric Medical History: Denies: Hx Depression Past Surgical History: Reports: Other - Buttocks abscess drainage in the remote past, left breast I&D - Immunizations Immunizations up to date: Yes Hx Diphtheria, Pertussis, Tetanus Vaccination: Yes Physical Exam - Vital signs Vitals: Temp Pulse Resp BP Pulse Ox 98.8 F 80 18 129/72 H 100 04/12/20 18:29 04/12/20 18:29 04/12/20 18:29 04/12/20 18:29 04/12/20 18:29 Course - Vital Signs Vital signs: Temp Pulse Resp BP Pulse Ox 98.8 F 80 18 129/72 H 100 04/12/20 18:29 04/12/20 18:29 04/12/20 18:29 04/12/20 18:29 04/12/20 18:29
== END 2020-04-12 23:51 | disposition left against medical advice (07) ==
LOC: ER 18:07
DX: N76.4 Abscess of vulva (principal)
CPT/HCPCS: 99281

== ENCOUNTER 2020-04-13 14:38 | Emergency (ER) | payer MEDICAID ==
--- NOTE | 2020-04-13 14:47 | ER Document Report ---
ED Medical Screen (RME) - General Chief Complaint: Abscess Stated Complaint: ABSCESS/VAGINAL AREA Time Seen by Provider: 04/13/20 14:46 Mode of Arrival: Ambulatory Information source: Patient Notes: 24-year-old female presented to ED for a left labial cyst abscess. She states it has been there for 4 days this time. She states when she was here last time that abscess did get better but this was started about 4days ago. She states the pain is a 5/5 at this time she states it encompasses almost the whole left labia. She states she has soaked it with warm water and she is placed in a gown and neither 1 of help. She would like some ibuprofen now and she will need to be seen by another provider to do an I&D on this abscess. She was seen last night and left before she was seen by a provider to do an I&D of the abscess I have greeted and performed a rapid initial assessment of this patient. A comprehensive ED assessment and evaluation of the patient, analysis of test results and completion of medical decision making process will be conducted by an additional ED providers. TRAVEL OUTSIDE OF THE [place] IN LAST 30 DAYS: No - Related Data Allergies/Adverse Reactions: No Known Allergies Allergy (Verified 01/17/20 11:57) Past Medical History Pulmonary Medical History: Reports: Hx Asthma Endocrine Medical History: Reports: Hx Diabetes Mellitus Type 2 - gestational Skin Medical History: Reports Hx Cellulitis Psychiatric Medical History: Denies: Hx Depression Past Surgical History: Reports: Other - Buttocks abscess drainage in the remote past, left breast I&D - Immunizations Immunizations up to date: Yes Hx Diphtheria, Pertussis, Tetanus Vaccination: Yes
[2020-04-13] MEDS ORDERED: IBUPROFEN 800 MG TABLET PO ONE (14:49)
[2020-04-13] MEDS ORDERED: ACETAMINOPHEN 325 MG TABLET PO ONE (21:44)
[2020-04-13 21:45] VITALS: BP 124/62
[2020-04-13] MEDS ORDERED: SULFAMETHOXAZOLE/TRIMETHOPRIM 800-160 MG TABLET PO ONE (22:18)
[2020-04-13] MEDS ORDERED: HYDROCODONE/ACETAMINOPHEN 5-325 MG (6 TAB/ER DISP) PO PRN (22:18)
[2020-04-13] MEDS ORDERED: METRONIDAZOLE 500 MG TABLET PO ONE (22:18)
[2020-04-13] MEDS ORDERED: CEPHALEXIN 500 MG CAPSULE PO ONE (22:18)
--- NOTE | 2020-04-13 22:20 | ER Document Report ---
ED Skin Rash/Insect Bite/Abscs - General Chief Complaint: Labial abcess Stated Complaint: ABSCESS/VAGINAL AREA Time Seen by Provider: 04/13/20 14:46 Mode of Arrival: Ambulatory Information source: Patient Notes: 24-year-old female presented to ED for a left labial cyst abscess. She states it has been there for 4 days this time. She states when she was here last time that abscess did get be tter but this was started about 4days ago. She states the pain is a 5/5 at this time she states it encompasses almost the whole left labia. She states she has soaked it with warm water and she is placed in a gown and neither 1 of help. She would like some ibuprofen now and she will need to be seen by another provider to do an I&D on this abscess. She was seen last night and left before she was seen by a provider to do an I&D of the abscess REVIEW OF SYSTEMS: CONSTITUTIONAL : Denies fever, chills, or sweats. Denies recent illness. EENT: Denies eye, ear, throat, or mouth pain or symptoms. Denies nasal or sinus congestion. CARDIOVASCULAR: Denies chest pain. RESPIRATORY: Denies cough, cold, or chest congestion. Denies shortness of breath, difficulty breathing, or wheezing. GASTROINTESTINAL: Denies abdominal pain. Denies nausea, vomiting, or diarrhea. Denies constipation. Last BM: GENITOURINARY: Denies difficulty urinating, painful urination, burning, frequency, or blood in urine. FEMALE GENITOURINARY: Denies vaginal bleeding, abnormal or irregular periods. LMP: MUSCULOSKELETAL: Denies neck or back pain or joint pain or swelling. SKIN: Large Bartholin abscess to the left labia examined in the presence of Funmi Noonan RN. Abscess is draining purulent drainage. Patient refused to have the abscess further open. She states she would rather go home and sit in the tub and first this herself. She states she does not want to be cut. HEMATOLOGIC : Denies easy bruising or bleeding. LYMPHATIC: Denies swollen, enlarged glands. NEUROLOGICAL: Denies altered mental status or loss of consciousness. Denies headache. Denies weakness or paralysis or loss of use of either side. Denies problems with gait or speech. Denies sensory or motor loss. PSYCHIATRIC: Denies anxiety or stress or depression. ALL OTHER SYSTEMS REVIEWED AND NEGATIVE. PHYSICAL EXAMINATION: GENERAL: Well-appearing, well-nourished and in no acute distress. HEAD: Atraumatic, normocephalic. EYES: Pupils equal round extraocular movements intact, conjunctiva are normal. ENT: Nares patent NECK: Normal range of motion LUNGS: No respiratory distress Musculoskeletal: Normal range of motion NEUROLOGICAL: Normal speech, normal gait. PSYCH: Normal mood, normal affect. SKIN: Bartholin cyst on the left labia. It has started draining. She did call from the car to state that it had started draining and she does not want it cut. TRAVEL OUTSIDE OF THE [place] IN LAST 30 DAYS: No - HPI Patient complains to provider of: Tender/swollen area - Left labia Onset: Other - 4 to 5 days Onset/Duration: Gradual, Persistent Quality of pain: Throbbing Severity: Moderate Pain Level: 4 Skin Character: Abscess Quality of rash: Painful Identify cause: Yes Exacerbated by: Sitting, Movement, Walking Relieved by: Denies Similar symptoms previously: Yes Recently seen / treated by doctor: Yes - She was triaged yesterday but left before being seen - Related Data Allergies/Adverse Reactions: No Known Allergies Allergy (Verified 01/17/20 11:57) Past Medical History - General Information source: Patient - Social History Smoking Status: Current Every Day Smoker Cigarette use (# per day): Yes - 2 to 3 cigarettes a day Frequency of alcohol use: None Drug Abuse: None Occupation: [employer] Lives with: Alone - Children Family History: Reviewed & Not Pertinent - No history of breast problems in the family, Arthritis, CAD, CVA, DM, Hypertension Patient has suicidal ideation: No Patient has homicidal ideation: No - Past Medical History Cardiac Medical History: Reports: None Pulmonary Medical History: Reports: Hx Asthma EENT Medical History: Reports: None Neurological Medical History: Reports: None Endocrine Medical History: Reports: Hx Diabetes Mellitus Type 2 - gestational Renal/ Medical History: Reports: None Malignancy Medical History: Reports: None GI Medical History: Reports: None Musculoskeletal Medical History: Reports None Skin Medical History: Reports Hx Cellulitis Psychiatric Medical History: Reports: None Traumatic Medical History: Reports: None Infectious Medical History: Reports: None Past Surgical History: Reports: Other - Buttocks abscess drainage in the remote past, left breast I&D - Immunizations Immunizations up to date: Yes Hx Diphtheria, Pertussis, Tetanus Vaccination: Yes - 2019 Physical Exam - Vital signs Vitals: Temp Pulse Resp BP Pulse Ox 98.9 F 88 16 113/71 100 04/13/20 14:52 04/13/20 14:52 04/13/20 14:52 04/13/20 14:52 04/13/20 14:52 Course - Re-evaluation Re-evalutation: 04/13/20 22:37 Abscess started draining on its own so she refused to have an I&D completed. I did examine the abscess in the presence of Funmi Noonan RN. Abscess is draining fair amount of purulent drainage. We did start her on Flagyl, Bactrim, and Keflex. She was given a dose of each in the emergency room as well as a [employer] dispense pack. She had earlier been treated with ibuprofen and then with Tylenol. States she would start the [place] after she has eaten. Patient was instructed on bathing and expressing the rest of this drainage and please follow-up with her primary care doctor. She states she used to go to [facility] I told her that she could still go to them as an adult they had an adult side. She verbalized she would do this. - Vital Signs Vital signs: Temp Pulse Resp BP Pulse Ox 98.3 F 89 16 124/62 97 04/13/20 21:43 04/13/20 21:43 04/13/20 21:43 04/13/20 21:43 04/13/20 21:43 Discharge - Discharge Clinical Impression: Bartholin's gland abscess Condition: Stable Disposition: HOME, SELF-CARE Additional Instructions: ABSCESS: You have an abscess (boil). This a pus-forming infection, usually due to staph. Some boils may be left to drain on their own, but most require lancing. From the time the tender lump first appears, it may be three or four days before the abscess is ready to zackery. Local heat and rest help at this stage of treatment. An antibiotic may prevent spread of the infection. Once the abscess is opened, packing may be placed into it. This is done so pus is not sealed inside by premature closure of the cavity. The packing will be removed at your follow-up visit or you may be advised to remove it yourself at home. Sometimes this packing must be replaced a few times during healing. The wound will heal with surprisingly little scar. Depending on the size and location of an abscess, healing can take one to four weeks. You may shower and wash the area around the incision site two or three times a day. Antibiotics may be prescribed, but are usually not necessary after an abscess has been drained. If you develop fever, chills, worsening pain, or increasing swelling in the area, call the doctor or return immediately. The abscess is a Bartholin abscess. There is a abscess of the vagina. You have elected not to have this I&D tonight. She states she did not want it cut. It is draining. Please take warm baths 2-3 times a day and massage the area to remove all the drainage and then clean the bathtub with bleach after each bath. ORAL NARCOTIC MEDICATION: You have been given a [employer] dispense pack for pain control. This medication is a narcotic. It's best taken with food, as nausea can result if taken on an empty stomach. Don't operate machinery or drive within six hours of taking this medication. Do not combine this medicine with alcohol, or with any medication which can cause sedation (such as cold tablets or sleeping pills) unless you get permission from the physician. Narcotics tend to cause constipation. If possible, drink plenty of fluids and eat a diet high in fiber and fruits. CEPHALEXIN: The antibiotic you've been prescribed is a member of the cephalosporin class. This type of antibiotic covers a wide variety of infections, including those of the skin, lungs, and urinary tract. It's useful for staph infections. This antibiotic is slightly similar to the penicillin family. In rare cases, a person who is allergic to penicillin will also be allergic to this medication. If you have had a severe allergic reaction to penicillin, and have not taken this antibiotic since that time, notify your doctor. Antibiotics which cover many germs ("broad spectrum" antibiotics) are more likely to cause diarrhea or "yeast" infections. Women prone to vaginal yeast problems may suffer an attack after taking this antibiotic. In infants, oral thrush (white spots "stuck" on the cheek) or yeast diaper rash may result. See your doctor if these problems occur. Call at once if you develop itching, hives, shortness of breath, or lightheadedness. TRIMETHOPRIM-SULFA: You have been given a prescription for trimethoprim-sulfa (TMS, Septra, Bactrim). This is a combination antibiotic of the sulfa class, often used for urinary tract infections, middle ear infections, bronchitis, shigella intestinal infection, and Pneumocystis pneumonia. TMS is usually well-tolerated. Occasional side effects include nausea and decreased appetite. Septra is not recommended for infants less than two months of age. Do not take this medication if you have experienced severe side effects or allergy to sulfa medicine. You should stop this medicine at once and contact your physician if you develop any rash, joint pain, shortness of breath, bruising, or jaundice (yellow color in the skin), or if you develop any other new or unusual symptoms. Metronidazole Metronidazole (Flagyl) has been prescribed. This medication is used to kill a type of bacteria called anaerobes, and protozoan parasites such as trichomonas and Giardia. Flagyl often causes a metallic taste in the mouth and mild nausea. Do not use alcohol in any form with Flagyl (including alcohol in medication elixirs). Flagyl interacts with alcohol to cause flushing, palpitations, headache, stomach cramps, and vomiting. Do not use Flagyl if you are taking Antabuse (disulfiram). Call the doctor at once if you develop rash, shortness of breath, itching, or lightheadedness. FOLLOW-UP CARE: Most simple abscesses will not require a follow up visit. If you had packing placed in the abscess, remove it as instructed by the physician. If you have been referred to a physician for follow-up care, call the physicians office for an appointment as you were instructed or within the next two days. If you experience worsening or a significant change in your symptoms, return to the Emergency Department at any time for re-evaluation. Prescriptions: Sulfamethoxazole/Trimethoprim [Bactrim Ds Tablet] 1 each PO BID #20 tablet Metronidazole [Flagyl 500 mg Tablet] 500 mg PO TID #21 tablet Cephalexin Monohydrate [Keflex 500 mg Capsule] 500 mg PO QID #40 capsule Forms: Return to Work [facility] [Provider Group] - Follow up as needed
== END 2020-04-13 23:10 | disposition home or self-care (01) ==
LOC: ER 14:38
DX: N75.1 Abscess of Bartholin's gland (principal); F17.210 Nicotine dependence, cigarettes, uncomplicated
CPT/HCPCS: 99284; J3490 ×4